=== PATIENT | female | born 1945 | race Caucasian/White ===

== ENCOUNTER 2021-01-22 15:18 | Emergency (ER) | payer MEDICARE, SELFPAY ==
[2021-01-22 16:05] VITALS: BP 141/89; PULSE 87; RESP 19; TEMP 36.8; O2SAT 98; BMI 28.8
--- NOTE | 2021-01-22 16:35 | HMH.EDUTC ---
[facility] [place]ression: Medication refill Otitis media Qualifiers: Otitis media type: unspecified Laterality: right Qualified Code(s): H66.91 - Otitis media, unspecified, right ear Disposition: Home, Self-Care Condition on Discharge: Good Instructions: Middle Ear Infection, Middle Ear Infections (Alternative Therapy), Amoxicillin Additional Instructions: Follow up with Family Doctor if no improvement or any worsening of symptoms Return if needed Straight to ER if any life threatening symptoms Take medication as prescribed Prescriptions: Amoxicillin [Amoxicillin 500mg Cap] 500 mg PO TID #30 cap Transmission Status: Pending to [facility] Rosuvastatin Calcium [Crestor 10mg Tablets] 10 mg PO DAILY 30 Days #30 tab Transmission Status: Pending to [facility] Levothyroxine Sodium [Euthyrox] 25 mcg PO DAILY 30 Days #30 tab Transmission Status: Pending to [facility] Referrals: Provider,Referral, MD [Primary Care Provider] - As needed Medical Decision Making - Christian Inquiry Pt receiving controlled substance: No Christian was queried for this patient: No Vital Signs: 01/22/21 16:05 Temperature 98.3 F Temperature Source Oral Pulse Rate [Right Brachial] 87 Respiratory Rate 19 Blood Pressure [Right Arm] 141/89 H Blood Pressure Mean [Right Arm] 106 Blood Pressure Source [Right Arm] Automatic Cuff Blood Pressure Position [Right Arm] Sitting 02 Sat by Pulse Oximetry 98 Oxygen Delivery Method Room Air [facility] [place] - General Stated complaint: needs refills Time Seen by Provider: 01/22/21 16:35 Mode of Arrival: Ambulatory Source of Information: Patient Limitations: No Limitations Description of Symptoms (Recalled from Triage Doc. by RN): PATIENT IS FROM [place] VISITING AND IS NEEDING HER THYROID AND CHOLESTEROL MEDICATIONS REFILLED HEENT Symptoms (Recalled from RN notes): No Resp Symptoms (Recalled from RN notes): No Skin Symptoms (Recalled from RN notes): No MS Symptoms (Recalled from RN notes): No Functional Status (Recalled from RN notes): WNL - History of Present Illness Provider Complaint: Patient states that she is in from [place] visiting States that she is out of a couple of her medications and wanted to get them refilled because she ran out while here visiting and not going back until after nicolás so she wanted to get her chloesterol (crestor 10mg daily) and thyroid medication( Euthrox 25mcg) refilled and she is also having pain in her right ear and thinks her ear infection is back - Related Data Home Medications Medication Instructions Recorded Confirmed Levothyroxine Sodium [Euthyrox] 25 mcg PO DAILY 01/22/21 01/22/21 Rosuvastatin Calcium [Crestor 10mg 10 mg PO DAILY 01/22/21 01/22/21 Tablets] Previous Rx's Medication Instructions Recorded Amoxicillin [Amoxicillin 500mg 500 mg PO TID #30 cap 01/22/21 Cap] Levothyroxine Sodium [Euthyrox] 25 mcg PO DAILY 30 Days #30 tab 01/22/21 Rosuvastatin Calcium [Crestor 10mg 10 mg PO DAILY 30 Days #30 tab 01/22/21 Tablets] Allergies Allergy/AdvReac Type Severity Reaction Status Date / Time Sulfa (Sulfonamide Allergy Verified 01/22/21 16:18 Antibiotics) - Worker's Comp Is this a Worker's Comp case?: No [facility] History - Hepatitis A Screen Drug use history?: No High risk sexual behaviors?: No History of sexually transmitted infection?: No Currently employed?: No Childcare worker?: No Do you have indoor plumbing?: Yes Do you have electricity?: Yes Attestation statement:: This patient has been screened for Hepatitis A risk factors. I have reviewed the patient's past medical history: Yes ROS Obtained: Yes All systems reviewed & no additional complaints, Yes Systems reviewed as appropriate & no additional complaints - Constitutional Constitutional: Reports system reviewed and no additional complaints, except as docu - ENT Ears, Nose, Mouth, and Throat: Reports s
[2021-01-22 16:46] VITALS: BP 141/89; PULSE 87; RESP 19; TEMP 36.8; O2SAT 98
== END 2021-01-22 16:50 | disposition home or self-care (01) ==
PROVIDERS: Emergency Provider Nurse Practitioner
DX: H66.91 Otitis media, unspecified, right ear (principal); Z76.0 Encounter for issue of repeat prescription
CPT/HCPCS: 99202; G0463

== ENCOUNTER 2021-07-18 18:01 | Emergency (ER) | payer MEDICARE, SELFPAY ==
[2021-07-18] VITALS (8 sets, daily range): BP systolic 133–216; BP diastolic 73–104; PULSE 85–110; RESP 16–20; TEMP 36.6–38.1; O2SAT 94–98; BMI 28.8
--- NOTE | 2021-07-18 18:26 | HMH.EDUTC ---
[facility] [place] Condition on Discharge: Undetermined Time of Disposition: 18:45 <Nora Valladares - Last Filed: 07/18/21 18:57> Condition on Discharge: Good <Francis Reich - Last Filed: 07/18/21 23:01> Clinical Impression: Hypertensive urgency, Pleurisy Headache Qualifiers: Headache type: unspecified Headache chronicity pattern: acute headache Intractability: not intractable Qualified Code(s): R51.9 - Headache, unspecified Disposition: Home, Self-Care Instructions: DI for Pleurisy Additional Instructions: Sent to ER for management of blood pressure and workup and monitor bp at home and see pcp Prescriptions: predniSONE [Prednisone 20mg Tab] 20 mg PO BID #10 tab Azithromycin [Zithromax 250mg tab] 250 mg PO DIRECTED #6 tab Referrals: Provider,Referral, [Primary Care Provider] - Medical Decision Making - Christian Inquiry Pt receiving controlled substance: No - Lab Data Lab results reviewed: Yes: I reviewed the patient's lab results. <Nora Valladares - Last Filed: 07/18/21 18:57> - Lab Data Result diagrams: 07/18/21 18:45 07/18/21 18:45 - Radiology Data #1 Image(s): Chest Image Reviewed: Yes I have reviewed radiologist's interpretation Preliminary Findings: Normal/NAD - CT Data CT Scan: Chest Time Received: 22:[address] Reviewed: Yes: I have viewed the radiologist's interpretation Preliminary Findings: Normal/NAD - ECG Data Tracing #1 Normal Sinus Rhythm: Yes Ischemic changes: non-specific ST-T wave changes <Francis Reich - Last Filed: 07/18/21 23:01> Vital Signs: 07/18/21 18:23 07/18/21 18:47 07/18/21 20:00 Temperature 100.5 F H 100.5 F H Temperature Source Oral Oral Pulse Rate 91 H Pulse Rate [Right Radial] 110 H 105 H Respiratory Rate 20 16 Blood Pressure 167/89 H Blood Pressure [Right Arm] 216/104 H 169/78 H Blood Pressure Mean 122 Blood Pressure Mean [Right Arm] 141 108 Blood Pressure Source [Right Arm] Automatic Cuff Blood Pressure Position [Right Arm] Sitting 02 Sat by Pulse Oximetry 96 97 97 Oxygen Delivery Method Room Air 07/18/21 20:31 07/18/21 21:01 07/18/21 22:01 Temperature Temperature Source Pulse Rate 86 90 85 Pulse Rate [Right Radial] Respiratory Rate Blood Pressure 167/95 H 156/85 H 149/73 H Blood Pressure [Right Arm] Blood Pressure Mean 119 108 101 Blood Pressure Mean [Right Arm] Blood Pressure Source [Right Arm] Blood Pressure Position [Right Arm] 02 Sat by Pulse Oximetry 95 95 94 L Oxygen Delivery Method 07/18/21 22:31 Temperature Temperature Source Pulse Rate 85 Pulse Rate [Right Radial] Respiratory Rate Blood Pressure 133/77 Blood Pressure [Right Arm] Blood Pressure Mean 94 Blood Pressure Mean [Right Arm] Blood Pressure Source [Right Arm] Blood Pressure Position [Right Arm] 02 Sat by Pulse Oximetry 94 L Oxygen Delivery Method - Lab Data Lab Results 07/18/21 18:31: Urine Color Yellow, Urine Appearance Clear, Urine pH 6.5, Ur Specific [place] 1.020, Urine Protein Negative, Urine Glucose (UA) Negative, Urine Ketones Negative, Urine Blood Negative, Urine Nitrate Negative, Urine Bilirubin Negative, Urine Urobilinogen 0.2, Ur Leukocyte Esterase Negative 07/18/21 18:45: WBC 7.7, RBC 4.94, Hgb 14.2, Hct 42.0, MCV 85.1, MCH 28.7, MCHC 33.7, RDW 13.7, Plt Count 231, MPV 8.7, Neut % (Auto) 79.0, Lymph % (Auto) 7.8 L, [place] % (Auto) 7.0, Eos % (Auto) 3.4, Baso % (Auto) 2.7 H, Neut # (Auto) 6.1, Lymph # (Auto) 0.6 L, [place] # (Auto) 0.5, Eos # (Auto) 0.3, Baso # (Auto) 0.2, ESR 27 07/18/21 18:45: Sodium 136, Potassium 3.8, Chloride 100, Carbon Dioxide 28, Anion Gap 11.8, BUN 14, Creatinine 0.70, Estimated Creat Clear 65, Estimated GFR 81, Est GFR ( Amer) 98, Glucose 131 H, Calcium 9.3, Total Bilirubin 0.4, AST 33, ALT 24, Alkaline Phosphatase 93, Troponin I < 0.01, C-Reactive Protein 3.3, Total Protein 8.1, Albumin 4.8, Globulin 3.3 H, Albumin/Globulin Ratio
[2021-07-18 18:33] LABS: Apearance,Urine Clear (Clear); Color,Urine Yellow (Yellow); PH,Urine 6.5 (5.0-8.5)
[2021-07-18 18:34] LABS: Bilirubin,Urine Negative (Negative); Blood, Urine Negative (Negative); Glucose,Urine (UA) Negative (Negative); Ketones,Urine Negative (Negative); Protein,Urine Negative (Negative)
[2021-07-18 18:35] LABS: UTC Leukocyte Esterase,Urine Negative (Negative); UTC Nitrate,Urine Negative (Negative); Urobilinogen,Urine 0.2 EU/dl (0.2)
--- NOTE | 2021-07-18 18:36 | PC.NURSE ---
Being sent to ED for further eval r/t elevated BP, c/o headache, low grade temp, SOA
--- NOTE | 2021-07-18 18:50 | XR_ITS ---
PROCEDURE INFORMATION: Exam: XR Chest Exam date and time: 07/18/2021 6:49 PM Age: 75 years old Clinical indication: Pain; Intercostal; Additional info: Weakness, copd TECHNIQUE: Imaging protocol: XR of the chest. Views: 2 views. COMPARISON: No relevant prior studies available. FINDINGS: Lungs: No acute airspace consolidation. Minor linear atelectasis or scarring at the left lung base. Bilateral calcified granulomata. Pleural spaces: Unremarkable. No pleural effusion. No pneumothorax. Heart/Mediastinum: Unremarkable. No cardiomegaly. Vasculature: Tortuosity of the thoracic aorta. Bones/joints: Unremarkable. IMPRESSION: No acute findings.
--- NOTE | 2021-07-18 18:50 | ECG_ITS ---
APPROVED REPORT Exam: Resting ECG HR:101 bpm ECG Measurements Heart Rate 101 AXES [place] 184 P 71 QRSd 85 QRS 44 QT 361 T 53 QTc 419 Conclusion SINUS TACHYCARDIA MINIMAL ST DEPRESSION [0.025+ mV ST DEPRESSION] ABNORMAL RHYTHM ECG UNCONFIRMED REPORT Electronically signed by : Kaleb Hodge MD 07/20/2021 09:40:47
[2021-07-18 18:57] LABS: Basophils # 0.2 K/mm3 (0-0.2); Basophils % 2.7 % (0.1-2.0); Eosinophils # 0.3 K/mm3 (0.0-0.4); Eosinophils % 3.4 % (0.1-12.0); Hemoglobin 14.2 g/dL (12.2-16.2); Lymphocytes # 0.6 K/mm3 (0.7-4.5); Lymphocytes % 7.8 % (10-50); Mean Corpuscular HGB Conc 33.7 g/dL (31.8-35.4); Mean Corpuscular Hemoglobin 28.7 pg (27.0-31.2); Mean Corpuscular Volume 85.1 fl (81-99); Mean Platelet Volume 8.7 fl (7.4-10.4); Monocytes # 0.5 K/mm3 (0.1-1.0); Neutrophils # 6.1 K/mm3 (1.8-7.8); Platelet Count 231 K/mm3 (142-424); Red Blood Count 4.94 M/mm3 (4.20-5.40); Red Cell Distribution Width 13.7 % (11.5-17.5); White Blood Count 7.7 K/mm3 (4.8-10.8)
[2021-07-18 19:04] LABS: Chloride 100 mmol/L (98-107); Potassium 3.8 mmoL/L (3.5-5.1); Sodium 136 mmol/L (136-145)
[2021-07-18 19:07] LABS: Alanine Aminotransferase 24 U/L (12-78); Albumin Level 4.8 g/dl (3.5-5.0); Albumin/Globulin Ratio 1.5 (1.1-1.8); Alkaline Phosphatase 93 U/L (38-126); Anion Gap 11.8 mEq/L (5-15); Aspartate Amino Transferase 33 U/L (14-36); Bilirubin,Total 0.4 mg/dl (0.2-1.3); Blood Urea Nitrogen 14 mg/dl (7-17); Calcium 9.3 mg/dl (8.4-10.2); Carbon Dioxide 28 mmol/L (22.0-30.0); Creatinine Clearance Estimated 65 mL/min (50-200); Estimated Glomerular Filt Rate 81 ml/min (>60); GFR (African American) 98 ML/MIN (>60); Globulin 3.3 g/dL (1.3-3.2); Glucose 131 mg/dl (74-100); Total Protein,Serum 8.1 g/dl (6.3-8.2)
[2021-07-18 19:13] LABS: C-Reactive Protein 3.3 mg/L (0-4)
[2021-07-18 19:24] LABS: Troponin I < 0.01 ng/ml (0.00-0.034)
[2021-07-18 19:38] LABS: Erythrocyte Sedimentation Rate 27 mm/hr (0-30)
[2021-07-18 19:39] LABS: Procalcitonin 0.049 ng/mL (0.0-2.0)
--- NOTE | 2021-07-18 21:06 | CT_ITS ---
PROCEDURE INFORMATION: Exam: CTA Chest With Contrast Exam date and time: 07/18/2021 9:42 PM Age: 75 years old Clinical indication: Pain; Shortness of breath; Left-sided; Additional info: SOA left chest pain TECHNIQUE: Imaging protocol: Computed tomographic angiography of the chest with contrast. 3D rendering (Not supervised by radiologist): MIP and/or 3D reconstructed images were created by the technologist. Radiation optimization: All CT scans at this facility use at least one of these dose optimization techniques: automated exposure control; mA and/or kV adjustment per patient size (includes targeted exams where dose is matched to clinical indication); or iterative reconstruction. Contrast material: ISOVUE 370; Contrast volume: 70 ml; Contrast route: INTRAVENOUS (IV); COMPARISON: CR XR CHEST 2V 07/18/2021 6:49 PM FINDINGS: Pulmonary arteries: Normal. No pulmonary emboli. Aorta: Mild atherosclerotic changes are seen within the thoracic aorta without evidence of aneurysm. Lungs: 8 mm calcified granuloma at the left lung base. No acute airspace disease. Pleural spaces: Unremarkable. No pneumothorax. No pleural effusion. Heart: Moderate coronary artery calcification. Lymph nodes: Calcified mediastinal and hilar region lymph nodes. Bones/joints: Unremarkable. No acute fracture. Soft tissues: Unremarkable. IMPRESSION: No acute findings.
[2021-07-18 21:08] LABS: Coronavirus 19, PCR Not Detected (NotDetected); Influenza A, PCR Not Detected (NotDetected); Influenza B, PCR Not Detected (NotDetected)
[2021-07-18 22:56] LABS: Troponin I < 0.01 ng/ml (0.00-0.034)
== END 2021-07-18 23:15 | disposition home or self-care (01) ==
LOC: UTC 18:15 → ER 18:36
PROVIDERS: Emergency Medicine; Physician Assistant; Emergency Provider Emergency Medicine
DX: I16.0 Hypertensive urgency (principal); J90 Pleural effusion, not elsewhere classified; R07.9 Chest pain, unspecified
CPT/HCPCS: 36415; 71046; 71275; 80053; 81003; 84145; 84484; 85025; 85651; 86140; 93005; 96374; 96375; 99284; C9803; Q9967; U0003; U0005

== ENCOUNTER 2021-07-24 18:59 | Emergency (ER) | payer MEDICARE, SELFPAY ==
[2021-07-24 19:01] VITALS: BP 168/91; PULSE 78; RESP 20; TEMP 36.7; O2SAT 97; BMI 28.8
--- NOTE | 2021-07-24 20:01 | ECG_ITS ---
APPROVED REPORT Exam: Resting ECG HR:78 bpm ECG Measurements Heart Rate 78 AXES [place] 173 P 77 QRSd 93 QRS 57 QT 382 T 59 QTc 416 Conclusion SINUS RHYTHM NORMAL ECG UNCONFIRMED REPORT Electronically signed by : Kaleb Hodge MD 07/25/2021 17:23:11
[2021-07-24 20:09] LABS: Coronavirus 19, PCR Not Detected (NotDetected); Influenza B, PCR Not Detected (NotDetected)
--- NOTE | 2021-07-24 20:16 | XR_ITS ---
PROCEDURE INFORMATION: Exam: XR Chest Exam date and time: 07/24/2021 8:25 PM Age: 75 years old Clinical indication: Cough and shortness of breath; Additional info: SOA, cough TECHNIQUE: Imaging protocol: XR of the chest. Views: 2 views. COMPARISON: CR XR CHEST 2V 07/18/2021 6:49 PM FINDINGS: Airway: Patent Lungs: COPD/emphysema is appreciated. Mild chronic interstitial prominence. Calcified granuloma in the left lower lobe is of no clinical concern. No acute interstitial or airspace disease. Pleural spaces: Unremarkable. No pleural effusion. No pneumothorax. Heart/Mediastinum: Unremarkable. No cardiomegaly. Bones/joints: No acute skeletal abnormality or aggressive osseous lesion. IMPRESSION: No acute thoracic pathology.
[2021-07-24 20:20] VITALS: PULSE 80; PULSE 82
[2021-07-24 20:27] LABS: Basophils # 0.1 K/mm3 (0-0.2); Eosinophils % 0.2 % (0.1-12.0); Hematocrit 41.2 % (37.0-47.0); Hemoglobin 13.8 g/dL (12.2-16.2); Lymphocytes # 1.6 K/mm3 (0.7-4.5); Lymphocytes % 16.6 % (10-50); Mean Corpuscular HGB Conc 33.5 g/dL (31.8-35.4); Mean Corpuscular Hemoglobin 28.5 pg (27.0-31.2); Mean Corpuscular Volume 85.3 fl (81-99); Monocytes # 0.6 K/mm3 (0.1-1.0); Monocytes % 6.5 % (1.7-9.3); Neutrophils # 7.2 K/mm3 (1.8-7.8); Neutrophils % 75.6 % (37.0-80.0); Platelet Count 242 K/mm3 (142-424); Red Blood Count 4.83 M/mm3 (4.20-5.40); Red Cell Distribution Width 13.6 % (11.5-17.5); White Blood Count 9.5 K/mm3 (4.8-10.8)
--- NOTE | 2021-07-24 20:29 | HMH.EDSOB ---
ED Disposition Clinical Impression: Flu syndrome Disposition: Home, Self-Care Condition on Discharge: Good Instructions: DI for H1N1 Influenza -- Adult Additional Instructions: fluids and see pcp for follow up Prescriptions: Oseltamivir Phosphate [Tamiflu 75mg Capsule] 75 mg PO BID #10 cap Transmission Status: Pending to [facility] Referrals: Provider,Referral, [Primary Care Provider] - - Critical Care Critical Care Time: No Attestation: On 07/24/21, the high probability of a clinically significant, sudden or life threatening deterioration of the following system(s) required my full and direct attention, intervention and personal management. The time I documented below is in addition to time spent performing reported procedures but includes the following listed in this critical care notation. Medical Decision Making - Medical Records Medical records reviewed: Yes: I reviewed the patient's medical records. - Christian Inquiry Pt receiving controlled substance: No Vital Signs: 07/24/21 19:01 07/24/21 20:20 Temperature 98.1 F Temperature Source Oral Pulse Rate 82 Pulse Rate [Right] 78 Respiratory Rate 20 Blood Pressure [Right Arm] 168/91 H Blood Pressure Mean [Right Arm] 116 Blood Pressure Source [Right Arm] Automatic Cuff 02 Sat by Pulse Oximetry 97 Oxygen Delivery Method Room Air - Lab Data Lab results reviewed: Yes: I reviewed the patient's lab results. Lab Results 07/24/21 20:00: SARS-CoV-2 (PCR) Not detected, Influenza A Untype (PCR) Detected A, Influenza Type B (PCR) Not detected 07/24/21 20:00: ESR 18 07/24/21 20:00: Troponin I < 0.01, C-Reactive Protein 0.4, Procalcitonin 0.031 07/24/21 20:00: WBC 9.5, RBC 4.83, Hgb 13.8, Hct 41.2, MCV 85.3, MCH 28.5, MCHC 33.5, RDW 13.6, Plt Count 242, MPV 9.0, Neut % (Auto) 75.6, Lymph % (Auto) 16.6, [place] % (Auto) 6.5, Eos % (Auto) 0.2, Baso % (Auto) 1.0, Neut # (Auto) 7.2, Lymph # (Auto) 1.6, [place] # (Auto) 0.6, Eos # (Auto) 0.0, Baso # (Auto) 0.1 07/24/21 20:00: Sodium 137, Potassium 3.9, Chloride 97 L, Carbon Dioxide 29, Anion Gap 14.9, BUN 19 H, Creatinine 0.70, Estimated Creat Clear 65, Estimated GFR 81, Est GFR ( Amer) 98, Glucose 158 H, Calcium 9.1, Magnesium 2.0, Total Bilirubin 0.1 L, AST 39 H, ALT 38, Alkaline Phosphatase 85, NT-Pro-B Natriuret Pep 246, Total Protein 7.4, Albumin 4.5, Globulin 2.9, Albumin/Globulin Ratio 1.6 07/24/21 20:09: Monoscreen Negative Result diagrams: 07/24/21 20:00 07/24/21 20:00 Orders (Tests/Meds): ED MEDICATIONS Generic Name Dose Route Start Last Admin Trade Name Freq PRN Reason Stop Dose Admin Sodium Chloride 1,000 mls @ 999 mls/hr 07/24/21 20:30 07/24/21 21:03 Sod Chlor 0.9% 1000ml Bag IV 07/24/21 21:30 999 mls/hr .Q1H1M TIM Administration Sodium Chloride 3 ml 07/24/21 20:16 Sodium Chloride 3% 15ml Neb 08/23/21 20:15 ONCE PRN INDUCE SPUTUM COLLECTION Discontinued Medications Generic Name Dose Route Start Last Admin Trade Name Freq PRN Reason Stop Dose Admin Albuterol/Ipratropium 3 ml 07/24/21 20:16 07/24/21 20:20 Ipratropium/Albuterol 3 Ml Neb 07/24/21 20:17 3 ml ONCE ONE Administration Methylprednisolone Sodium Succinate 125 mg 07/24/21 20:16 07/24/21 21:03 Methylprednisolone Sod Succ 125mg Vial IV 07/24/21 20:17 125 mg ONCE ONE Administration ORDERS Category Date Time Status T4 (Thyroxine) Stat Lab 07/24/21 20:09 Received Thyroid Stimulating Hormone Stat Lab 07/24/21 20:09 Received Troponin I Q3H Lab 07/24/21 23:30 Ordered Troponin I Q3H Lab 07/25/21 02:30 Ordered Sputum Culture & Gram Stain Routine Micro 07/24/21 20:15 Ordered - Radiology Data #1 Image(s): Chest Image Reviewed: Yes I have reviewed radiologist's interpretation Preliminary Findings: Normal/NAD - ECG Data Tracing #1 Normal Sinus Rhythm: Yes Ischemic changes: non-specific ST-T wave changes - JESUS Score for
[2021-07-24 20:33] LABS: Alanine Aminotransferase 38 U/L (12-78); Albumin Level 4.5 g/dl (3.5-5.0); Albumin/Globulin Ratio 1.6 (1.1-1.8); Alkaline Phosphatase 85 U/L (38-126); Anion Gap 14.9 mEq/L (5-15); Aspartate Amino Transferase 39 U/L (14-36); Blood Urea Nitrogen 19 mg/dl (7-17); Calcium 9.1 mg/dl (8.4-10.2); Carbon Dioxide 29 mmol/L (22.0-30.0); Chloride 97 mmol/L (98-107); Creatinine Clearance Estimated 65 mL/min (50-200); Estimated Glomerular Filt Rate 81 ml/min (>60); GFR (African American) 98 ML/MIN (>60); Globulin 2.9 g/dL (1.3-3.2); Glucose 158 mg/dl (74-100); Potassium 3.9 mmoL/L (3.5-5.1); Sodium 137 mmol/L (136-145); Total Protein,Serum 7.4 g/dl (6.3-8.2)
[2021-07-24 20:36] LABS: C-Reactive Protein 0.4 mg/L (0-4)
[2021-07-24 20:37] LABS: Bilirubin,Total 0.1 mg/dl (0.2-1.3)
[2021-07-24 20:39] LABS: Monoscreen (Rapid) Negative (Negative)
[2021-07-24 20:42] LABS: NT Pro Brain Natriuretic Pep. 246 pg/mL (0-450)
[2021-07-24 20:51] LABS: Procalcitonin 0.031 ng/mL (0.0-2.0)
[2021-07-24 20:56] LABS: Erythrocyte Sedimentation Rate 18 mm/hr (0-30)
[2021-07-24 21:04] LABS: Troponin I < 0.01 ng/ml (0.00-0.034)
[2021-07-24 21:09] LABS: Influenza A, PCR Detected (NotDetected)
[2021-07-24 21:20] VITALS: BP 164/78; PULSE 71; RESP 20; TEMP 36.7; O2SAT 97
[2021-07-24 22:03] LABS: T4 (Thyroxine) 8.7 ug/dl (5.53-11.0)
[2021-07-24 22:16] LABS: Thyroid Stimulating Hormone 1.03 uIU/mL (0.465-4.68)
== END 2021-07-24 21:35 | disposition home or self-care (01) ==
PROVIDERS: Emergency Provider Emergency Medicine
DX: J10.1 Influenza due to other identified influenza virus with other respiratory manifestations (principal); Z79.899 Other long term (current) drug therapy; Z88.2 Allergy status to sulfonamides
CPT/HCPCS: 71046; 80053; 83735; 83880; 84145; 84436; 84443; 84484; 85025; 85651; 86140; 86318; 93005; 94640; 96365; 96375; 99284; C9803; U0003; U0005

== ENCOUNTER 2021-08-30 21:01 | Emergency (ER) | payer MEDICARE, SELFPAY ==
[2021-08-30 21:13] VITALS: BP 132/66; PULSE 82; RESP 18; TEMP 36.9; O2SAT 98; BMI 28.8
--- NOTE | 2021-08-30 21:17 | XR_ITS ---
PROCEDURE INFORMATION: Exam: XR Right Knee Exam date and time: 08/30/2021 9:52 PM Age: 75 years old Clinical indication: Injury or trauma; Fall; Blunt trauma and laceration; Right; Patella or knee; Foreign body involvement not specified TECHNIQUE: Imaging protocol: Radiologic exam of the Right knee. Views: 3 views. COMPARISON: No relevant prior studies available. FINDINGS: Bones/joints: Normal. Soft tissues: Normal. IMPRESSION: No acute findings.
--- NOTE | 2021-08-30 21:55 | HMH.EDFALL ---
ED Disposition Clinical Impression: Abrasions of multiple sites Contusion of knee, right Qualifiers: Encounter type: initial encounter Qualified Code(s): S80.01XA - Contusion of right knee, initial encounter Laceration of knee Qualifiers: Encounter type: initial encounter Laterality: right Qualified Code(s): S81.011A - Laceration without foreign body, right knee, initial encounter Disposition: Home, Self-Care Condition on Discharge: Good Instructions: DI for Laceration Repair -- Simple Additional Instructions: use meds and sutures out 12 days Prescriptions: cephALEXin [cephALEXin 500mg capsule*] 500 mg PO TID #30 cap Transmission Status: Pending to [facility] Referrals: Provider,Referral, [Primary Care Provider] - - Critical Care Critical Care Time: No Attestation: On 08/30/21, the high probability of a clinically significant, sudden or life threatening deterioration of the following system(s) required my full and direct attention, intervention and personal management. The time I documented below is in addition to time spent performing reported procedures but includes the following listed in this critical care notation. Medical Decision Making - Medical Records Medical records reviewed: Yes: I reviewed the patient's medical records. - Christian Inquiry Pt receiving controlled substance: No Vital Signs: 08/30/21 21:13 Temperature 98.4 F Temperature Source Oral Pulse Rate [Apical] 82 Respiratory Rate 18 Blood Pressure [Right Arm] 132/66 Blood Pressure Mean [Right Arm] 88 Blood Pressure Source [Right Arm] Automatic Cuff Blood Pressure Position [Right Arm] Sitting 02 Sat by Pulse Oximetry 98 Oxygen Delivery Method Room Air - Lab Data Lab results reviewed: Yes: I reviewed the patient's lab results. Orders (Tests/Meds): ED MEDICATIONS Discontinued Medications Generic Name Dose Route Start Last Admin Trade Name Freq PRN Reason Stop Dose Admin Tetanus/Reduced Diphtheria/Acell Pertussis 0.5 ml 08/30/21 21:17 08/30/21 22:27 Tet/Diphth/Pert-Adult 0.5ml Syringe IM 08/30/21 21:18 0.5 ml .ONCE ONE Administration ORDERS Category Date Time Status XR knee RT 3V Stat Exams 08/30/21 21:17 Taken - Radiology Data #1 Image(s): Knee Image Reviewed: Yes I reviewed the patient's radiology image Preliminary Findings: No Fracture Seen Medical Decision Narrative: has lac rt knee and several abrasions but no fx Fall HPI - General Chief Complaint: Fall Stated Complaint: 08/30@2044 right knee lac Time Seen by Provider: 08/30/21 21:55 Mode of Arrival: Ambulatory Source of Information: Patient, Relative, Medical Record Limitations: No Limitations Description of Symptoms (Recalled from ER Triage Doc. by RN): Pt states that she tripped over a curb and landed on her hands and knees resulting in an abrasion to her left palm and left knee and a laceration to her right knee. States that she doesnt have any pain other than the laceration. Denies hip or back pain. - History of Present Illness HPI Narrative: trip injury and hit rt knee with laceration and several abrasions MD complaint: fall Onset (ago): hour(s) Fall from: standing Fall witnessed: yes, by family Place fall occurred: home Loss of consciousness: none Prolonged down time: no Context: tripped/slipped Location of injury - extremities: Right: knee Severity: moderate Associated symptoms (after fall): denies - Related Data Home Medications Medication Instructions Recorded Confirmed Rosuvastatin Calcium [Crestor 10mg 10 mg PO DAILY 01/22/21 07/24/21 Tablets] Albuterol Sulfate [Proair Hfa] 2 puff IH Q6HP PRN 07/24/21 07/24/21 Azithromycin [Zithromax 250mg 250 mg PO DIRECTED 07/24/21 07/24/21 tab] Budesonide/Formoterol Fumarate 2 puff IH DAILY 07/24/21 07/24/21 [Symbicort 160-4.5 Mcg Inhaler] Gabapentin [Neurontin 300mg 300 mg PO BID 07/24/21 07/24/21 capsule] Levot
[2021-08-30 23:51] VITALS: BP 121/78; PULSE 80; RESP 18; TEMP 36.9; O2SAT 98
== END 2021-08-30 23:52 | disposition home or self-care (01) ==
PROVIDERS: Emergency Provider Emergency Medicine
DX: S80.01XA Contusion of right knee, initial encounter (principal); S81.011A Laceration without foreign body, right knee, initial encounter; S60.512A Abrasion of left hand, initial encounter; W10.1XXA Fall (on)(from) sidewalk curb, initial encounter; Z23 Encounter for immunization; Z79.899 Other long term (current) drug therapy; Z88.2 Allergy status to sulfonamides
CPT/HCPCS: 12032; 73562; 90471; 90715; 99283

== ENCOUNTER 2021-09-11 19:27 | Emergency (ER) | payer MEDICARE, SELFPAY ==
[2021-09-11 19:29] VITALS: BP 131/86; PULSE 76; RESP 19; TEMP 36.6; O2SAT 98; BMI 29.7
[2021-09-11 19:41] VITALS: BP 131/86; PULSE 76; RESP 19; TEMP 36.6; O2SAT 98
== END 2021-09-11 19:43 | disposition home or self-care (01) ==
LOC: UTC 19:34
PROVIDERS: Emergency Provider Nurse Practitioner; PCP Emergency Medicine
DX: Z48.02 Encounter for removal of sutures (principal); Z79.51 Long term (current) use of inhaled steroids; Z79.52 Long term (current) use of systemic steroids; Z82.2 Family history of deafness and hearing loss

== ENCOUNTER 2023-07-28 10:28 | Emergency (ER) | payer MEDICARE, SELFPAY ==
--- OUTSIDE RECORDS SUMMARY | 2023-07-28 10:33 | XMS_ITS | Continuity of Care Document ---
Author Name [facility] Address [address] [place] [address] Organization [facility] Address [address] [place] [address] Care Team Providers Care Statistical Programmer Name Role Phone Heather Mena Emergency Provider Lavon Willis Primary Care Provider Allergies, Adverse Reactions, Alerts Allergen Type Severity Reaction Last Updated Verified Status Sulfa (Sulfonamide Antibiotics) Adverse Reaction Unknown Unknown March 20, 2023 Y Active Medications Active Medications Medication Dose Units Route Sig Qty Days Start Date St atus Cyclobenzaprine 10 MG Oral ONCE WERNER Y AT BEDTIME April 02, 2022 Active Paroxetine Hcl 10 MG Oral DAILY F ebruary 2022 Active Meloxicam 15 MG Oral DAILY ry 2022 Active Gabapentin 300 MG Oral THREE TIMES A DAY April 02, 2022 Active Omeprazole 20 MG Oral EVERY MORNING April 02, 2022 Active Lisinopril 5 MG Oral DAILY samreen2022 Active Metoprolol Succinate 25 MG Oral DAILY April 02, 2022 Active Aripiprazole 5 MG Oral DAILY b ruary 2022 Active Rosuvastatin 10 MG Oral DAILY Mar ruary 2022 Active Levothyroxine 25 MCG Oral EVERY MORNING April 03, 2022 Active Paroxetine Hcl 50 MG Oral DAILY 0 F ebruary 2022 Active Discontinued Medications Medication Dose Units Route Sig Qty Days Start Date Di scontinued Date Status Lovastatin 40 MG Oral DAILY Septe mber 2017April 02, 2022 Discontinued Paroxetine Hcl 50 MG Oral DAILY S eptember 2017April 09, 2022 Discontinued Aripiprazole 5 MG Oral ONCE Sep tember 2017April 02, 2022 Discontinued Prednisone 40 MG Oral DAILY 8 4 Augus t 2021October 09, 2021 Discontinued Benzonatate 100 MG Oral THREE TIMES A DAY October 05, 2021 April 02, 2022 Discontinued Cyclobenzaprine 10 MG Oral ONCE DAILY AT BEDTIME April 02, 2022 April 02, 2022 Discontinued Doxycycline Hyclate 100 MG Oral TWICE A DAY 14 7 April 09, 2022 April 16, 2022 Discontinued Doxycycline Hyclate 100 MG Oral EVERY 12 HOURS 28 September 25, 2022 October 09, 2022 Discontinued Problem List Active Problems Medical Problem Onset Date Status Bradycardia Active Severe sepsis Active Sepsis Active Leg wound, right Active Colon polyps Active Inactive/Resolved Problems Medical Problem Onset Date Status Chest wall pain Inactive RSV (respiratory syncytial virus infection) Inactive Pacemaker Inactive Chest pain Inactive Chest pain Inactive Hypertension Inactive Fall Inactive Laceration of knee Inactive Procedures Procedure Date Status XR chest 1V portable March 20, 2023 completed EKG ED Electrocardiogram March 20, 2023 comple abhijit Relevant Diagnostic Tests and/or Laboratory Data Laboratory Results Test Date/Time Result Interp. Ref. Range Result Co mment White Blood Count March 20, 2023 7:50pm 9.57 K/uL 4.30-10.00 Red Blood Count March 20, 2023 7:50pm 4.34 M/uL 3.80-5.00 Hemoglobin March 20, 2023 7:50pm 12.2 gm/dL 12.0-15.0 Hematocrit March 20, 2023 7:50pm 36.5 % 35.0-45.0 Mean Corpuscular Volume March 20, 2023 7:50pm 84.1 fL Low 85.0-100.0 Mean Corpuscular Hemoglobin March 20, 2023 7:50pm 28.1 pg 27.0-33.0 Mean Corpuscular Hemoglobin Concent March 20, 2023 7:50pm 33.4 gm/dL 32.0-36.0 Red Cell Distribution Width March 20, 2023 7:50pm 13.1 % 11.5-14.5 Platelet Count March 20, 2023 7:50pm 255 K/uL 150-400 Absolute Neutrophil March 20, 2023 7:50pm 5.4 K/uL 2.0-7.0 Immature Granulocyte % (Auto) March 20, 2023 7:50pm 0.3 % 0-1 Neutrophils (%) (Auto) March 20, 2023 7:50pm 56.1 % 45.0-75.0 Lymphocytes (%) (Auto) March 20, 2023 7:50pm 29.2 % 20.0-40.0 Monocytes (%) (Auto) March 20, 2023 7:50pm 10.2 % 1.0-13.1 Eosinophils (%) (Auto) March 20, 2023 7:50pm 3.7 % 0-5 Basophils (%) (Auto) March 20, 2023 7:50pm 0.5 % 0.0-1.0 Nucleated Red Blood Cells March 20, 2023 7:50pm 0.0 /100 WBC 0.0-1.0 Prothrombin Time March 20, 2023 7:50pm 10.3 seconds 9.3-12.1 Prothromb Time International Ratio March 20, 2023 7:50pm 1.0 0.9-1.2 Reference Interv al is for non-anticoagulated patients. Suggested INR Therapeutic Range for Vitamin K antogonist therapy: LEVELS OF THERAPY INDICATIONS TARGET INR RANGE Standard Dose Venous Thrombosis, 2.0 - 3.0 Atrial Fibrillation, Pulmonary Embolism. High Dose Valvular Heart Disease, 2.5 - 3.5 Mechanical Heart, Intracardiac Thrombosis. Activated Partial Thromboplast Time March 20, 2023 7:50pm 26.5 seconds 23.9-32.8 Sodium Level March 20, 2023 7:50pm 138 mEq/l 132-146 Potassium Level March 20, 2023 7:50pm 4.3 mEq/L 3.4-5.2 Chloride Level March 20, 2023 7:50pm 104 mEq/L 93-109 Carbon Dioxide Level March 20, 2023 7:50pm 26.0 mEq/L 20.0-32.0 Anion Gap March 20, 2023 7:50pm 8 5-20 Blood Urea Nitrogen March 20, 2023 7:50pm 15 mg/dL 6-22 Creatinine March 20, 2023 7:50pm 0.80 mg/dL 0.50-1.70 Estimated Creatinine Clearance March 20, 2023 7:50pm 64 mL/min This value is calculated by Cockcroft Gault Equation using ideal body weight. This result is dependent on an accurate patient height and weight which is obtained from patients medical record." CockIris julio. and M.HIsaías Mtz. Prediction of creatinine clearance from serum creatinine. Nephron. 1976. 16(1):31-41. Estimat Glomerular Filtration Rate March 20, 2023 7:50pm 75 Low >90 Reported eGFR is based on the CKD-EPI 2020 equation that does not use a race coefficient. Additional information can be found at: [email or web address] ([email or web address].[email or web address]) BUN/Creatinine Ratio March 20, 2023 7:50pm 19 Ratio 6-20 Glucose Level March 20, 2023 7:50pm 142 mg/dL High 68-100 Calculated Osmolality March 20, 2023 7:50pm 279 mOsm/kg 270-290 Calcium Level March 20, 2023 7:50pm 8.8 mg/dL 8.0-10.4 Magnesium Level March 20, 2023 7:50pm 2.1 mg/dL 1.6-2.3 Total Bilirubin March 20, 2023 7:50pm 0.5 mg/dL 0.1-1.2 Aspartate Amino Transf (AST/SGOT) March 20, 2023 7:50pm 24 IU/L 4-44 Alanine Aminotransferase (ALT/SGPT) March 20, 2023 7:50pm 21 IU/L 5-40 Troponin I High Sensitivity March 20, 2023 7:50pm 5 ng/L 0-12 Effective Jul 17 2019 - New Range: Testing is reported out in ng/L to compare to other results in ng/dL divide by 1000. Values <20 ng/L will be considered normal - Male Values <12 ng/L will be considered normal - Female Values >/=500 ng/L will be considered abnormal, and indicative of myocardial necrosis. Values between 20 and 499 (Male) and values between 12 and 499 (Female), generally are to be considered suspicious of, but not diagnostic for myocardial necrosis and require close clinical correlation, using best medical judgement. In addition, a delta of 20% (rise) between any 2 troponin values will be considered suspicious of, but not diagnostic for myocardial necrosis and require close clinical correlation, using best medical judgement. Clinicians must consider a patient's signs, symptoms, history and results with other diagnostic tests when interpreting high sensitivity Troponin assays because the performance for this assay has not been fully characterized by [employer]. Total Protein March 20, 2023 7:50pm 7.1 g/dL 5.6-8.0 Albumin March 20, 2023 7:50pm 4.2 g/dL 3.2-5.2 Globulin March 20, 2023 7:50pm 2.9 g/dL 2.0-3.9 Albumin/Globulin Ratio March 20, 2023 7:50pm 1.4 0.9-1.8 Alkaline Phosphatase March 20, 2023 7:50pm 66 U/L 34-128 Advance Directives Advance Directive Response Recorded Date/ Time Advance Directives No March 20 024 7:09pm Health Care Proxy No March 20 7:09pm Chief Complaint and Reason for Visit Encounter Admit Date Chief Complaint Reason for V isit Departed Emergency March 20, 2023 6:38pm pacemaker s [facility] Discharge Instructions No known hospital discharge instructions. Hospital Discharge Medications Medication Dose Units Route Sig Qty Days Order Date Status Ins tructions Lovastatin 40 MG Oral DAILY mber 2017 Discontinued Paroxetine Hcl 50 MG Oral DAILY S epteer 2017 Discontinued Aripiprazole 5 MG Oral ONCE Sep 2017 Discontinued Prednisone 40 MG Oral DAILY 8 4 t 2021 Discontinued Benzonatate 100 MG Oral THREE TIMES A DAY October 05, 2021 Discontinued Cyclobenzaprine 10 MG Oral ONCE DAILY AT BEDTIME April 02, 2022 Discontinued Cyclobenzaprine 10 MG Oral ONCE DAILY AT BEDTIME April 02, 2022 Active Paroxetine Hcl 10 MG Oral DAILY F ebary 2022 Active Meloxicam 15 MG Oral DAILY ua ry 2022 Active Gabapentin 300 MG Oral THREE TIMES A DAY April 02, 2022 Active Omeprazole 20 MG Oral EVERY MORNING April 02, 2022 Active Lisinopril 5 MG Oral DAILY u samreen 2022 Active Metoprolol Succinate 25 MG Oral DAILY April 02, 2022 Active Aripiprazole 5 MG Oral DAILY b ruary 2022 Active Rosuvastatin 10 MG Oral DAILY Mar ruary 2022 Active Levothyroxine 25 MCG Oral EVERY MORNING April 03, 2022 Active Paroxetine Hcl 50 MG Oral DAILY 0 F ebary 2022 Active Doxycycline Hyclate 100 MG Oral TWICE A DAY 14 7 April 09, 2022 Discontinued Doxycycline Hyclate 100 MG Oral EVERY 12 HOURS 28 14 September 25, 2022 Discontinued Encounters Encounter Facility Location Admit/Visit Date Discharge/Departure Date Attending Provider Departed Emergency [facility] Emergency March 20, 2023 6:38pm March 20, 2023 10:20pm Functional Status No known functional status. Immunizations Immunization Name Date Given Type Tetanus, Diphtheria, Pertussis (Tdap) March 242022 Administered Tetanus, Diphtheria, Pertussis (Tdap) September 25, 2022 Administered Plan of Care Instructions ED Chest Pain, Uncertain Cau se Follow-up with your primary care physician, or the referring physician that you were given from the emergency department. Please call on the next business day for an appointment. If your condition changes or worsens at any time please return to the emergency department to be reevaluated. Social History Query Response Date Recorded Comment Lives With Family March 20, 2023 6:50pm Living Situation Private Home March 20, 2023 6:50pm Query Response Start Date Stop Date Smoking Status Former tobacco user Vital Signs Vital Reading Result Reference Range Collection Date/Time Height 1.68 m March 20 6:46pm Weight 86.183 kg March 20 6:46pm Temperature 99.2 F 97.6 F-99.6 F March 20 6:46pm Pulse 89 BPM 60-90 March 20 6:46pm Respiration 16 RPM 12-March 20 6:46pm Pulse Oximetry 94 % 95-100 March 20 024 6:46pm Blood Pressure Systolic 147 90-140 Carrington jolley 2023 6:46pm Blood Pressure Diastolic 77 60-90 Nikita cervantes 2023 6:46pm Body Mass Index 30.7 March 20, 2023 6:46pm
--- OUTSIDE RECORDS SUMMARY | 2023-07-28 10:33 | XMS_ITS | Continuity of Care Document ---
Author Name Unknown Address [address] [place] [address] Phone [facility] Address [address] [place] [address] Phone Care Team Providers Care Manager Order Name Role Phone MD Al Winston Primary Care Provider [phone] MD Randee Dior Attending Provider Chief Complaint and Reason for Visit Chief Complaint M54.2 Allergies, Adverse Reactions, Alerts Allergen Type Severity Reaction Last Updated Verified Status Sulfa (Sulfonamide Antibiotics) Adverse Reaction Unknown Unknown April 20, 2022 11:52pm Yes Active Social History Smoking Status Status Start Date End Date Date of Observa tion Unknown if ever smoked 2022 10:52pm Observation Status Date of Observation Not September 16, 2022 Observation Status Observation Response Date of Response Living Situation Private Home October 05 12:35am Living Situation Private Home October 06 1:56am Living Situation Private Home April 02, 2022 1:19am Other Living Situation trailer April 02, 2022 5:40am Services Prior to Admission None Febr uary 2022 6:12pm Lives With Children April 02 023 6:12pm Living Situation Private Home April 21, 2022 12:30am Additional Data Assigned Sex Female Problems Active Problems Medical Problem Onset Date Status Bradycardia Active Severe sepsis Active Sepsis Active Leg wound, right Active Colon polyps Active Inactive/Resolved Problems Medical Problem Onset Date Status RSV (respiratory syncytial virus infection) Resolved Chest pain Resolved Hypertension Resolved Medications Medication Status Dose Units Route Directions Qty Days St art Date End Date Instructions Lovastatin Discontin ued 40 MG PO DAILY [facility] er 2017 12:00am Februa ry 2022 9:49am Paroxetine Hcl Discontin ued 50 MG PO DAILY [facility] er 2017 12:00am Februa ry 2022 5:14pm Aripiprazole Discontin ued 5 MG PO ONCE [facility] er 2017 12:00am Februa ry 2022 9:49am Prednisone Discontin ued 40 MG PO DAILY 8 4 October 05, 2021 12:00am October 09, 2021 12:22a m Benzonatate Discontin ued 100 MG PO THREE TIMES A DAY October 05, 2021 12:00am Februa ry 2022 9:51am Cyclobenzapri ne Discontin ued 10 MG PO ONCE DAILY AT BEDTIME 2022 1:00am Februa ry 2022 9:49am Cyclobenzapri ne Active 10 MG PO ONCE DAILY AT BEDTIME 2022 1:00am Paroxetine Hcl Active 10 MG PO DAILY 2022 1:00am Meloxicam Active 15 MG PO DAILY 2022 1:00am Gabapentin Active 300 MG PO THREE SAMANTHA ES A DAY 2022 1:00am Omeprazole Active 20 MG PO EVERY MORNING 2022 1:00am Lisinopril Active 5 MG PO DAILY r 2022 1:00am Metoprolol Succinate Active 25 MG PO DAILY 2022 1:00am Aripiprazole Active 5 MG PO DAILY 2022 1:00am Rosuvastatin Active 10 MG PO DAILY 2022 1:00am Levothyroxine Active 25 MCG PO EVERY MORNING 2022 1:00am Paroxetine Hcl Active 50 MG PO DAILY 0 2022 1:00am Doxycycline Hyclate Discontin ued 100 MG PO TWICE A DAY 14 7 2022 1:00am Februa ry 3 1:34am Immunizations Immunization Event Date Not Given Reason Dose Number Reservations And Ticketing Agent Lot Number Vaccine Information Statement (VIS) Detail Tetanus, Diphtheria, Pertussis (Tdap) April 02, 2022 [id number] Procedures Procedure Date Performed Status XR cervical spine 2V September 16, 2022 4:13pm acti ve Advance Directives Advance Directive Response Recorded Date/ Time Advance Directives No October 05, 2021 1:03am Health Care Proxy No October 05, 2 022 1:03am Advance Directives No October 06, 2021 2:05am Health Care Proxy No October 06 2 022 2:05am Advance Directives No March 7:34pm Health Care Proxy No April 02, 2022 6:12pm Advance Directives No April 21 12:10am Health Care Proxy No April 21 12:10am Insurance Providers Guarantor India Tapia Address [address] [place] [phone] Contact Info. Home Phone: Payer Policy Id Coverage Id Subscriber's Name Subscriber Id Effective Date Expiration Date [employer] Medicare ADV [id number] [place] Tapia [id number] [facility] Dual Complete FULL [id number] [place] Tapia [id number] [facility] Medicare [id number] [place] Tapia [id number] Self Pay Self N/A Encounters Encounter Location(s) Arrival/Admit Date Discharge/Depart Date Provider(s) Departed Referred [facility] September 16, 2022 4:01pm September 16, 2022 4:02pm Randee Dior MD Plan of Treatment Future Tests Future scheduled test information is unavailable Pending Tests Test Name Ordered Date Scheduled Date VTE Risk Assessment Medical April 02, 2022 12:58am April 02, 2022 12:58am VTE Risk Assessment Medical April 02, 2022 1:00am April 02, 2022 1:00am XR cervical spine 2V September 16, 2022 4:13pm September 16, 2022 4:13pm Future Visits Future appointment information is unavailable Referrals to Other Providers Reason for Referral Referral Start Date Provider Provider Contact Information Provider Address Fanny wilkerson MD Work Phone: [phone] [facility] [address] Irena Koo MD Work Phon e: [address] [facility] [address] [facility] [address] Lizeth Rivear MD Work Phone: [address] [facility] [address] Fanny wilkerson MD Work Phone: [phone] [facility] [address] [facility] Work Phone : [address] [facility] [address] Olivia Douglass MD Work Tuyet ne: [address] [facility] [address] [facility] [address] Appointment on Saturday, April 16, 2022 at 9:00 AM [facility] Work Phone: [address] [place] [address] [address] [facility], [address] Al Winston MD Work Phone : [phone] [facility] [address] Pedro Bryant am, MD Work Phone: [address] [place] [phone] Followup with [facility] tester sound. Al Winston MD Work Phone : [facility] [address] Future Procedures Procedure Name Ordered Date Scheduled Date Peripheral IV Insert/Manage October 05, 2021 12 :38am October 05, 2021 12:39am Peripheral IV Insert/Manage October 06, 2021 1: 52am October 06, 2021 1:52am Hospital Level of Care April 02, 2022 12:53 am April 02, 2022 12:53am Case Management Consult April 02, 2022 3:38 pm April 02, 2022 3:38pm Discharge April 09, 2022 5:21pm Febru samreen 2022 5:21pm Patient Transfer (from unit to unit) April 08, 2022 5:34pm April 08, 2022 5:34pm Patient Transfer (from unit to unit) April 08, 2022 3:48pm April 08, 2022 3:48pm Wound / Skin Care RN Consult April 02, 2022 12:58am April 02, 2022 12:58am Activity April 02, 2022 12:58am Febr uary 2022 12:58am Activity April 08, 2022 6:44pm Febru samreen 2022 6:44pm Apply Ice to Affected Area April 08, 2022 6 :44pm April 08, 2022 6:44pm Cardiology EP Consult April 04, 2022 6:59pm April 04, 2022 6:59pm Signed Consent on Chart April 08, 2022 4:25 pm April 08, 2022 4:25pm Infectious Disease Consult April 02, 2022 2 :17am April 02, 2022 2:17am Peripheral IV Insert/Manage April 01, 2022 9 :33pm April 01, 2022 9:33pm Peripheral IV Insert/Manage April 08, 2022 6:44pm April 08, 2022 6:44pm Oxygen Initiate/Maintain April 02, 2022 12: 58am April 02, 2022 12:58am Sepsis Fluid Quality Measure April 02, 2022 1:00am April 02, 2022 1:00am Patient Preference for Pain Management April 02, 2022 12:58am April 02, 2022 12:58a m Provider Order to Nurse April 08, 2022 6:44 pm April 08, 2022 6:44pm Continuous Pulse Oximetry April 01, 2022 9:3 3pm April 01, 2022 9:33pm Sequential Compression Device April 02 1:00am April 02, 2022 1:00am Sequential Compression Device April 02 12:58am April 02, 2022 12:58am Peripheral IV Insert/Manage April 21, 2022 12:1 0am April 21, 2022 12:11am Continuous Pulse Oximetry April 21, 2022 12:10a m April 21, 2022 12:11am Future Medications Future medication information is unavailable Patient Instructions ED RSV Infection (Bronchioli tis) ED Hypertension, To Be Confi rmed [facility] em ED Chest Pain, Uncertain Cau se
--- OUTSIDE RECORDS SUMMARY | 2023-07-28 10:33 | XMS_ITS | Continuity of Care Document ---
Author Name [facility] Address [address] [place] [address] Organization [facility] Address [address] [place] [address] Care Team Providers Care Pipeline Superintendent Name Role Phone Heather Mena Emergency Provider Lavon Willis Primary Care Provider [phone] Allergies, Adverse Reactions, Alerts Allergen Type Severity [...] Medical Problem Onset Date Status Bradycardia Active Chest wall pain Active Severe sepsis Active Sepsis Active Pacemaker Active Leg wound, right Active Colon polyps Active Inactive/Resolved Problems Medical Problem Onset Date Status RSV (respiratory syncytial virus infection) Inactive Chest pain Inactive Chest pain Inactive [...] coefficient. Additional information can be found at: [email or web address] ([email or web address]) BUN/Creatinine Ratio March 20, [...] assay has not been fully characterized by [employer]. Total Protein March 20, 2023 7:50pm 7.1 [...] Emergency March 20, 2023 6:38pm pacemaker s [facility] Discharge Instructions No known hospital discharge [...] Date Discharge/Departure Date Attending Provider Departed Emergency [facility] Emergency March 20, 2023 6:38pm March 20, [...]
--- OUTSIDE RECORDS SUMMARY | 2023-07-28 10:33 | XMS_ITS | Continuity of Care Document ---
Author Name [facility] Address [address] [place] [address] Organization [facility] Address [address] [place] [address] Care Team Providers Care Tip Cementer Name Role Phone Heather Mena Emergency Provider Lavon Willis Primary Care Provider [phone] Allergies, Adverse Reactions, Alerts Allergen Type Severity [...] 40 MG Oral DAILY 8 4 Augus 2021October 09, 2021 Discontinued Benzonatate 100 MG [...] 12 HOURS 28 14 September 25, 2022 October 09, 2022 Discontinued [...] completed EKG ED Electrocardiogram March 20, 2023 active Relevant Diagnostic Tests and/or Laboratory Data Laboratory [...] which is obtained from patients medical record." Cockcroft, D.W. and M.H. Gault. Prediction of creatinine clearance from serum creatinine. Nephron. 1976. 16(1):31-41. Estimat Glomerular Filtration Rate March 20, 2023 7:50pm 75 Low >90 Reported eGFR is based on the CKD-EPI 2020 equation that does not use a race coefficient. Additional information can be found at: [email or web address] r_[email or web address] df ([email or web address].org) BUN/Creatinine Ratio March 20, [...] assay has not been fully characterized by [employer]. Total Protein March 20, 2023 7:50pm 7.1 [...] Emergency March 20, 2023 6:38pm pacemaker s [facility] Discharge Instructions No known hospital discharge instructions. Hospital Discharge Medications Medication Dose Units Route Sig Qty Days Order Date Status Ins tructions Lovastatin 40 MG Oral DAILY [id number] Discontinued Paroxetine Hcl 50 MG Oral DAILY S eptember 2017 Discontinued Aripiprazole 5 MG Oral ONCE Sep 2017 Discontinued Prednisone 40 MG Oral DAILY 8 4 t 2021 Discontinued Benzonatate 100 MG Oral THREE TIMES A DAY October 05, 2021 Discontinued Cyclobenzaprine 10 MG Oral ONCE DAILY AT BEDTIME April 02, 2022 Discontinued Cyclobenzaprine 10 MG Oral ONCE DAILY AT BEDTIME April 02, 2022 Active Paroxetine Hcl 10 [facility] Active Meloxicam 15 MG Oral DAILY ua ry 2022 Active Gabapentin 300 MG Oral THREE TIMES A DAY April 02, 2022 Active Omeprazole 20 MG Oral EVERY MORNING April 02, 2022 Active Lisinopril 5 MG Oral DAILY u samreen2022 Active Metoprolol Succinate 25 MG Oral DAILY April 02, 2022 Active Aripiprazole 5 MG Oral DAILY b ruary 2022 Active Rosuvastatin 10 MG Oral DAILY Mar ruary 2022 Active Levothyroxine 25 MCG Oral EVERY MORNING April 03, 2022 Active Paroxetine Hcl 50 MG Oral DAILY [facility] Active Doxycycline Hyclate 100 MG Oral TWICE A DAY 14 7 April 09, 2022 Discontinued Doxycycline Hyclate 100 MG Oral EVERY 12 HOURS 28 14 September 25, 2022 Discontinued Encounters Encounter Facility Location Admit/Visit Date Discharge/Departure Date Attending Provider Departed Emergency [facility] Emergency March 20, 2023 6:38pm March [...] 60-90 March 20 6:46pm Respiration 16 RPM 12-24 March 20 6:46pm Pulse Oximetry 94 % 95-100 March 20 024 6:46pm Blood Pressure Systolic 147 90-140 Carrington jolley 2023 6:46pm Blood Pressure Diastolic 77 60-90 Nikita cervantes 2023 6:46pm Body Mass Index 30.7 March 20, 2023 6:46pm
--- OUTSIDE RECORDS SUMMARY | 2023-07-28 10:33 | XMS_ITS | Continuity of Care Document ---
Author Name Unknown Address [address] [place] [address] Phone [facility] Address [address] [place] [address] Phone Care Team Providers Care Dog Or Animal Sitter Name Role Phone MD [facility] Provider DO Salty Blair Attending Provider MD Gail Ricketts Other Provider MD [facility] Provider [phone] MD Pedro Phelps Other Provider MD George Flor Attending Provider [phone] MD Erendira [place] Emergency Provider Chief Complaint and Reason for Visit Chief Complaint severe sepsis cellul itis wound eval CHEST PAIN Reason for Visit Bradycardia Leg wound, right Sepsis Severe sepsis Allergies, Adverse Reactions, Alerts Allergen Type Severity Reaction Last Updated Verified Status Sulfa (Sulfonamide Antibiotics) Adverse Reaction Unknown Unknown April 20, 2022 10:52pm Yes Active Social History Smoking Status Status Start Date End Date Date of Observa tion Former smoker October 06, 2 022 1:14am Observation Status Observation Response Date of Response Living Situation Private Home April 20, 2022 11:30pm Lives With Children April 02 2 023 5:12pm Living Situation Private Home April 02, 2022 12:19am Other Living Situation trailer April 02, 2022 4:40am Services Prior to Admission None Febr [email or web address] 5:12pm Additional Data Assigned Sex Female Problems Active Problems Medical Problem Onset Date Status Bradycardia Active Severe sepsis Active Sepsis Active Leg wound, right Active Chest pain Active Colon polyps Active Inactive/Resolved Problems Medical Problem Onset Date Status RSV (respiratory syncytial virus infection) Resolved Hypertension Resolved Medications Medication Status Dose Units Route Directions Qty Days St art Date End Date Instructions Lovastatin Discontin ued 40 MG PO DAILY [facility] er 2017 11:00pm Februa ry 2022 8:49am Paroxetine Hcl Discontin ued 50 MG PO DAILY [facility] er 2017 11:00pm Februa ry 2022 4:14pm Aripiprazole Discontin ued 5 MG PO ONCE [facility] er 2017 11:00pm Februa ry 2022 8:49am Prednisone Discontin ued 40 MG PO DAILY 8 October 04, 2021 11:00pm October 08, 2021 11:22p m Benzonatate Discontin ued 100 MG PO THREE TIMES A DAY October 04, 2021 11:00pm Februa ry 2022 8:51am Cyclobenzapri ne Discontin ued 10 MG PO ONCE DAILY AT BEDTIME 2022 12:00am Februa ry 2022 8:49am Cyclobenzapri ne Active 10 MG PO ONCE DAILY AT BEDTIME 2022 12:00am Paroxetine Hcl Active 10 MG PO DAILY 2022 12:00am Meloxicam Active 15 MG PO DAILY 2022 12:00am Gabapentin Active 300 MG PO THREE SAMANTHA ES A DAY 2022 12:00am Omeprazole Active 20 MG PO EVERY MORNING 2022 12:00am Lisinopril Active 5 MG PO DAILY 2022 12:00am Metoprolol Succinate Active 25 MG PO DAILY 2022 12:00am Aripiprazole Active 5 MG PO DAILY 2022 12:00am Rosuvastatin Active 10 MG PO DAILY 2022 12:00am Levothyroxine Active 25 MCG PO EVERY MORNING 2022 12:00am Paroxetine Hcl Active 50 MG PO DAILY 0 y 2022 12:00am Doxycycline Hyclate Discontin ued 100 MG PO TWICE A DAY 14 7 y 2022 12:00am Februa ry 2022 12:34a m Immunizations Immunization Event Date Not Given Reason Dose Number [facility] Lot Number Vaccine Information Statement (VIS) Detail Tetanus, Diphtheria, Pertussis (Tdap) April 02, 2022 [id number] Procedures Procedure Date Performed Status CT angio chest with contrast April 20, 2022 11:18pm completed EKG ED Electrocardiogram April 20, 2022 11: 15pm active XR chest 1V portable April 20, 2022 11:11pm completed EKG ED Electrocardiogram April 01, 2022 8:33 pm completed XR chest 1V portable April 01, 2022 8:33pm c ompleted XR tibia fibula RT 2V April 01, 2022 11:28pm completed CT head/brain wo contrast April 02, 2022 12 :00am completed CT elbow LT w contrast April 02, 2022 12:00 am completed Echo TTE cmp w/dop wo contrast April 05 3:31pm completed EKG Electrocardiogram April 09, 2022 5:00am completed XR chest 2V April 09, 2022 5:00am compl eted Methicillin-Resist S. Aureus (PCR) completed Blood Culture completed Blood Culture completed Gram Stain completed Superficial Wound Culture comple abhijit Relevant Diagnostic Tests and/or Laboratory Data Laboratory Results Test Date/Time Result Interpretation Reference Range Result Comment Performing Site White Blood Count April 09, 2022 4:20am 8.70 K/uL 4.30-10.00 [facility] [id number] [address] [place] [address] White Blood Count April 20, 2022 11:19pm 7.89 K/uL 4.30-10.00 [facility] [id number] [address] [place] [address] Red Blood Count April 09, 2022 4:20am 4.09 M/uL 3.80-5.00 [facility] [id number] [address] [facility] [address] Red Blood Count April 20, 2022 11:19pm 4.15 M/uL 3.80-5.00 [facility] [id number] [address] [facility] [address] Hemoglobin April 09, 2022 4:20am 11.3 gm/dL 12.0-15.0 [facility] [id number] [address] [facility] [address] Hemoglobin April 20, 2022 11:19pm 11.5 gm/dL 12.0-15.0 [facility] [id number] [address] [facility] [address] Hematocrit April 09, 2022 4:20am 36.2 % 35.0-45.0 [facility] [id number] [address] [facility] [address] Hematocrit April 20, 2022 11:19pm 35.1 % 35.0-45.0 [facility] [id number] [address] [facility] [address] Mean Corpuscular Volume April 09, 2022 4:20am 88.5 fL 85.0-100.0 [facility] [id number] [address] [facility] [address] Mean Corpuscular Volume April 20, 2022 11:19pm 84.6 fL 85.0-100.0 [facility] [id number] [address] [facility] [address] Mean Corpuscular Hemoglobin April 09, 2022 4:20am 27.6 pg 27.0-33.0 [facility] [id number] [address] [facility] [address] Mean Corpuscular Hemoglobin April 20, 2022 11:19pm 27.7 pg 27.0-33.0 [facility] [id number] [address] [facility] [address] Mean Corpuscular Hemoglobin Concent April 09, 2022 4:20am 31.2 gm/dL 32.0-36.0 [facility] [id number] [address] [facility] [address] Mean Corpuscular Hemoglobin Concent April 20, 2022 11:19pm 32.8 gm/dL 32.0-36.0 [facility] [id number] [address] [facility] [address] Red Cell Distribution Width April 09, 2022 4:20am 13.0 % 11.5-14.5 [facility] [id number] [address] [facility] [address] Red Cell Distribution Width April 20, 2022 11:19pm 13.7 % 11.5-14.5 [facility] [id number] [address] [facility] [address] Platelet Count April 09, 2022 4:20am 238 K/uL 150-400 [facility] [id number] [address] [facility] [address] Platelet Count April 20, 2022 11:19pm 246 K/uL 150-400 [facility] [id number] [address] [facility] [address] Absolute Neutrophil April 09, 2022 4:20am 5.4 K/uL 2.0-7.0 [facility] [id number] [address] [facility] [address] Absolute Neutrophil April 20, 2022 11:19pm 4.0 K/uL 2.0-7.0 [facility] [id number] [address] [facility] [address] Immature Granulocyte % (Auto) April 09, 2022 4:20am 0.6 % 0-1 [facility] [id number] [address] [facility] [address] Immature Granulocyte % (Auto) April 20, 2022 11:19pm 0.3 % 0-1 [facility] [id number] [address] [facility] [address] Neutrophils (%) (Auto) April 09, 2022 4:20am 62.9 % 45.0-75.0 [facility] [id number] [address] [facility] [address] Neutrophils (%) (Auto) April 20, 2022 11:19pm 51.9 % 45.0-75.0 [facility] [id number] [address] [facility] [address] Lymphocytes (%) (Auto) April 09, 2022 4:20am 21.3 % 20.0-40.0 [facility] [id number] [address] [facility] [address] Lymphocytes (%) (Auto) April 20, 2022 11:19pm 32.4 % 20.0-40.0 [facility] [id number] [address] [facility] [address] Monocytes (%) (Auto) April 09, 2022 4:20am 11.4 % 1.0-13.1 [facility] [id number] [address] [facility] [address] Monocytes (%) (Auto) April 20, 2022 11:19pm 11.3 % 1.0-13.1 [facility] [id number] [address] [facility] [address] Eosinophils (%) (Auto) April 09, 2022 4:20am 3.0 % 0-5 [facility] [id number] [address] [facility] [address] Eosinophils (%) (Auto) April 20, 2022 11:19pm 3.5 % 0-5 [facility] [id number] [address] [facility] [address] Basophils (%) (Auto) April 09, 2022 4:20am 0.8 % 0.0-1.0 [facility] [id number] [address] [facility] [address] Basophils (%) (Auto) April 20, 2022 11:19pm 0.6 % 0.0-1.0 [facility] [id number] [address] [facility] [address] Nucleated Red Blood Cells April 09, 2022 4:20am 0.0 /100 WBC 0.0-1.0 [facility] [id number] [address] [facility] [address] Nucleated Red Blood Cells April 20, 2022 11:19pm 0.0 /100 WBC 0.0-1.0 [facility] [id number] [address] [facility] [address] Erythrocyte Sedimentation Rate April 08, 2022 5:14am 27 mm 0-15 [facility] [id number] [address] [facility] [address] Hemoglobin A1c April 01, 2022 8:49pm 5.5 % 4.0-6.0 Interpretation Guidelines: Non-Diabetic: 4.0-6.0 % Good Diabetic Control: 6.0-8.0 % Diabetic Action Suggested: >8.0 % [facility] [id number] [address] [facility] [address] Prothrombin Time April 01, 2022 8:49pm 10.7 seconds 9.3-12.1 [facility] [id number] [address] [facility] [address] Prothromb Time International Ratio April 01, 2022 8:49pm 1.0 0.9-1.2 Reference Interval is for non-anticoagulat ed patients.Suggest ed INR Therapeutic Range for Vitamin K antogonist therapy:LEVELS OF THERAPY INDICATIONS TARGET INR RANGEStandard Dose Venous Thrombosis, 2.0 - 3.0 Atrial Fibrillation, Pulmonary Embolism. High Dose Valvular Heart Disease, 2.5 - 3.5 Mechanical Heart, Intracardiac Thrombosis. [facility] [id number] [address] [facility] [address] Activated Partial Thromboplast Time April 01, 2022 8:49pm 25.8 seconds 23.9-32.8 [facility] [id number] [address] [place] [address] Anti-Xa Level April 01, 2022 8:49pm < 0.10 IU/mL 0.30-0.70 [facility] [id number] [address] [place] [address] Urine Color April 01, 2022 10:52pm Yellow Yellow [facility] [id number] [address] [facility] [address] Urine Clarity April 01, 2022 10:52pm Clear Clear [facility] [id number] [address] [facility] [address] Urine pH April 01, 2022 10:52pm 7.5 5.0-8.0 [facility] [id number] [address] [facility] [address] Urine Specific [place] April 01, 2022 10:52pm <= 1.005 1.005-1.03 0 [facility] [id number] [address] [place] [address] Urine Blood April 01, 2022 10:52pm Negative mg/dL Negative [facility] [id number] [address] [facility] [address] Urine Protein April 01, 2022 10:52pm Negative mg/dl Negative [facility] [id number] [address] [facility] [address] Urine Glucose (UA) April 01, 2022 10:52pm Negative mg/dL Negative [facility] [id number] [address] [facility] [address] Urine Ketones April 01, 2022 10:52pm Negative mg/dL Negative [facility] [id number] [address] [facility] [address] Urine Nitrate April 01, 2022 10:52pm Negative Negative [facility] [id number] [address] [facility] [address] Urine Bilirubin April 01, 2022 10:52pm Negative mg/dL Negative [facility] [id number] [address] [facility] [address] Urine Urobilinogen April 01, 2022 10:52pm 1.0 E.U./dL 0.2 [facility] [id number] [address] [facility] [address] Urine Leukocyte Esterase April 01, 2022 10:52pm Trace mg/dL Negative [facility] [id number] [address] [facility] [address] Sodium Level April 09, 2022 4:20am 139 mEq/l 132-146 [facility] [id number] [address] [facility] [address] Sodium Level April 20, 2022 11:19pm 136 mEq/l 132-146 [facility] [id number] [address] [facility] [address] Potassium Level April 09, 2022 4:20am 3.9 mEq/L 3.4-5.2 [facility] [id number] [address] [facility] [address] Potassium Level April 20, 2022 11:19pm 3.6 mEq/L 3.4-5.2 [facility] [id number] [address] [facility] [address] Chloride Level April 09, 2022 4:20am 106 mEq/L 93-109 [facility] [id number] [address] [facility] [address] Chloride Level April 20, 2022 11:19pm 100 mEq/L 93-109 [facility] [id number] [address] [facility] [address] Carbon Dioxide Level April 09, 2022 4:20am 25.0 mEq/L 20.0-32.0 [facility] [id number] [address] [facility] [address] Carbon Dioxide Level April 20, 2022 11:19pm 27.0 mEq/L 20.0-32.0 [facility] [id number] [address] [facility] [address] Anion Gap April 09, 2022 4:20am 8 5-20 [facility] [id number] [address] [facility] [address] Anion Gap April 20, 2022 11:19pm 9 5-20 [facility] [id number] [address] [facility] [address] Blood Urea Nitrogen April 09, 2022 4:20am 11 mg/dL 08-12 [facility] [id number] [address] [facility] [address] Blood Urea Nitrogen April 20, 2022 11:19pm 14 mg/dL 08-12 [facility] [id number] [address] [facility] [address] Creatinine April 09, 2022 4:20am 0.60 mg/dL 0.50-1.70 [facility] [id number] [address] [facility] [address] Creatinine April 20, 2022 11:19pm 0.70 mg/dL 0.50-1.70 [facility] [id number] [address] [facility] [address] Estimated Creatinine Clearance April 09, 2022 4:20am 68 mL/min This value is calculated by Cockcroft Gault Equation using ideal body weight. This result is dependent on an accurate patient height and weight which is obtained from patients medical record. Iris Gallagher. and M.H. Gatravis. Prediction of creatinine clearance from serum creatinine. Nephron. 1976. 16(1):31-41. [facility] [id number] [address] [facility] [address] Estimated Creatinine Clearance April 20, 2022 11:19pm 65 mL/min This value is calculated by Cockcroft Gault Equation using ideal body weight. This result is dependent on an accurate patient height and weight which is obtained from patients medical record. Gama GallagherW. and M.HIsaías Mtz. Prediction of creatinine clearance from serum creatinine. Nephron. 1976. 16(1):31-41. [facility] [id number] [address] [facility] [address] Estimat Glomerular Filtration Rate April 09, 2022 4:20am 92 >90 Reported eGFR is based on the CKD-EPI 2020 equation that does not use a race coefficient. Additional information can be found at:[email or web address] ([email or web address]) [facility] [id number] [address] [facility] [address] Estimat Glomerular Filtration Rate April 20, 2022 11:19pm 89 >90 Reported eGFR is based on the CKD-EPI 2020 equation that does not use a race coefficient. Additional information can be found at:[email or web address] ([email or web address]) [facility] [id number] [address] [facility] [address] BUN/Creatinine Ratio April 09, 2022 4:20am 18 Ratio 6-20 [facility] [id number] [address] [facility] [address] BUN/Creatinine Ratio April 20, 2022 11:19pm 20 Ratio 6-20 [facility] [id number] [address] [facility] [address] Glucose Level April 09, 2022 4:20am 83 mg/dL 68-100 [facility] [id number] [address] [facility] [address] Glucose Level April 20, 2022 11:19pm 91 mg/dL 68-100 [facility] [id number] [address] [facility] [address] Calculated Osmolality April 09, 2022 4:20am 276 mOsm/kg 270-290 [facility] [id number] [address] [facility] [address] Calculated Osmolality April 20, 2022 11:19pm 272 mOsm/kg 270-290 [facility] [id number] [address] [facility] [address] Lactic Acid Level April 05, 2022 6:54am 1.0 mmo/L 0.5-2.0 [facility] [id number] [address] [facility] [address] Calcium Level April 09, 2022 4:20am 8.4 mg/dL 8.0-10.4 [facility] [id number] [address] [facility] [address] Calcium Level April 20, 2022 11:19pm 9.3 mg/dL 8.0-10.4 [facility] [id number] [address] [facility] [address] Magnesium Level April 06, 2022 5:36am 2.0 mg/dL 1.6-2.3 [facility] [id number] [address] [facility] [address] Total Bilirubin April 09, 2022 4:20am 0.4 mg/dL 0.1-1.2 [facility] [id number] [address] [facility] [address] Total Bilirubin April 20, 2022 11:19pm 0.6 mg/dL 0.1-1.2 [facility] [id number] [address] [facility] [address] Aspartate Amino Transf (AST/SGOT) April 09, 2022 4:20am 39 IU/L 4-44 [facility] [id number] [address] [facility] [address] Aspartate Amino Transf (AST/SGOT) April 20, 2022 11:19pm 20 IU/L 4-44 [facility] [id number] [address] [facility] [address] Alanine Aminotransfera se (ALT/SGPT) April 09, 2022 4:20am 30 IU/L 5-40 [facility] [id number] [address] [facility] [address] Alanine Aminotransfera se (ALT/SGPT) April 20, 2022 11:19pm 17 IU/L 5-40 [facility] [id number] [address] [place] [address] Troponin I High Sensitivity April 01, 2022 11:49pm 10 ng/L 0-12 Effective Jul 17 2019 Range:Testing is reported out in ng/L to compare to other results in ng/dL divide by 1000.Values <20 ng/L will be considered normal - MaleValues <12 ng/L will be considered normal - FemaleValues >/=500 ng/L will be considered abnormal, and [...] assay has not been fully characterized by [employer]. [facility] [id number] [address] [place] [address] Troponin I High Sensitivity April 21, 2022 12:01am 5 ng/L 0-12 Delta: 7 on 04/20/22-2318Eff ective Jul 17 2019 Range:Testing is reported out in ng/L to compare to other results in ng/dL divide by 1000.Values <20 ng/L will be considered normal - MaleValues <12 ng/L will be considered normal - FemaleValues >/=500 ng/L will be considered abnormal, and [...] assay has not been fully characterized by [employer]. [facility] [id number] [address] [facility] [address] C-Reactive Protein April 08, 2022 5:14am 8.00 mg/L 0.00-9.00 [facility] [id number] [address] [facility] [address] C-Reactive Protein High Sensitivity April 01, 2022 8:49pm 47.050 mg/L 0.000-7.48 0 The [employer] states the best evidence to date supports the use of hs-CRP as an independent predictor of increased coronary risk.The defined risk groups are as follows:Low Risk: Less than 1.0 mg/LAverage Risk: 1.0 to 3.0 mg/LHigh Risk: Above 3.0 mg/LIf the hs-CRP level is >10 mg/L, the test should be repeated, and patient examined for sources of infection or inflammation. [facility] [id number] [address] [facility] [address] Total Protein April 09, 2022 4:20am 6.0 g/dL 5.6-8.0 [facility] [id number] [address] [facility] [address] Total Protein April 20, 2022 11:19pm 6.9 g/dL 5.6-8.0 [facility] [id number] [address] [facility] [address] Albumin April 09, 2022 4:20am 3.4 g/dL 3.2-5.2 [facility] [id number] [address] [facility] [address] Albumin April 20, 2022 11:19pm 4.1 g/dL 3.2-5.2 [facility] [id number] [address] [facility] [address] Globulin April 09, 2022 4:20am 2.6 g/dL 2.0-3.9 [facility] [id number] [address] [facility] [address] Globulin April 20, 2022 11:19pm 2.8 g/dL 2.0-3.9 [facility] [id number] [address] [facility] [address] Albumin/Globul in Ratio April 09, 2022 4:20am 1.3 0.9-1.8 [facility] [id number] [address] [facility] [address] Albumin/Globul in Ratio April 20, 2022 11:19pm 1.5 0.9-1.8 [facility] [id number] [address] [facility] [address] Alkaline Phosphatase April 09, 2022 4:20am 67 U/L 34-128 [facility] [id number] [address] [facility] [address] Alkaline Phosphatase April 20, 2022 11:19pm 70 U/L 34-128 [facility] [id number] [address] [facility] [address] Thyroid Stimulating Hormone (Reflex April 04, 2022 5:44am 3.36 uIU/mL 0.340-5.60 0 *ALERT! NEW NORMAL RANGE (0.34-5.6 uIU/mL)The hTSH results should be interpreted in light of the total clinical presentation of the patient, including: symptoms, data from additional tests, and other appropriate information. This assay is not validated for testing serum hTSH levels. [facility] [id number] [address] [facility] [address] Procalcitonin April 08, 2022 5:14am < 0.05 ng/mL 0.00-0.08 PCT Concentration (ng/mL or ug/mL) Value Interpretation<0 .5 Low risk of severe sepsis and/or septic shock.>2.0 High risk of severe sepsis and/or septic shock. PCT results should be used in conjunction with all laboratory findings and full clinical picture of the patientConcentra tions <0.5 ng/mL do not exclude local or systemic infections in their initial stages (under six hours from onset of illness)PCT concentrations between 0.5 and 2.0 ng/mL should be interpreted with consideration of the patient's history. In this range, it is recommended to retest PCT within six to 24 hours. Elevated PCT levels may be seen in conditions other than systemic bacterial infection. These may include but are not limited to: polytrauma, mccormick, major surgery and prolonged or cardiogenic shock. In addition, certain patient characteristics including, renal insufficiency or failure, may impact PCT levels and should be considered as potentially confounding clinical factors when evaluating PCT results. [facility] [id number] [address] [facility] [address] Vancomycin Level Trough April 08, 2022 5:14am 12.4 ug/mL 10.0-20.0 [facility] [id number] [address] [place] [address] Random Vancomycin Level April 09, 2022 4:20am 6.6 ug/mL [facility] [id number] [address] [place] [address]73 Microbiology Results Procedure Source Result Collection Date/Time Result Date/Time Result Comment Performing Site Gram Stain Ankle,Rig ht April 02, 2022 4:49pm [facility] [id number] [address] [facility] [address] Superficial Wound Culture Ankle,Rig ht Methicillin Resis Staph Aureus April 06, 2022 12:21pm [facility] [id number] [address] [place] [address] Ankle,Rig ht Strep pyogenes -group a April 06, 2022 12:21pm [facility] [id number] [address] [place] [address] 33068 Ankle,Rig ht Pseudomonas stutzeri April 06, 2022 12:21pm [facility] [id number] [address] [place] [address] Methicillin-Re sist S. Aureus (PCR) Nares April 08, 2022 5:57pm [facility] [id number] [address] [place] [address]910 Blood Culture Blood NO GROWTH AFTER 5 DAYS April 06, 2022 9:19pm [facility] [id number] [address] [place] [address] 37268 Blood Culture Blood NO GROWTH AFTER 5 DAYS April 06, 2022 9:17pm [facility] [id number] [address] [place] [address] Diagnostic Imaging Reports Report Dictated Date/Time Dictated By Status Radiology Report April 01, 2022 10:00pm Jared constantino MD completed [address] [address] Patient Name: India Tapia Medical Record#: [id number] Address: [address] [place] [address] City/State/Zip: [place] [address]: Addy Carey MD Insurance: [facility] Dual Complete FULL /Age/Sex: 1945/F Self Pay Admit/Reg Date: 04/01/[address]: Addy vela MD Location: ED./ PCP: Fanny Marx MD Date of Service: 04/01/22 Order (s): XR chest 1V portable CPT Code: 14812 Report Number: [id number] Reason for Exam: cp Indication: cp Date of exam:04/01/2022 7:33 PM ADOPTION WORKER Comparison: [10/05/2021] Impression: Portable AP chest radiograph shows no consolidation. No large pleural effusion or pneumothorax. Minimal linear opacity in the mid to lower left lung is present on prior exam as well and likely represents scarring. Electronically signed by: Jared Max MD 04/01/2022 9:00 PM ADOPTION WORKER Dictated By: Jared Max MD 04/01/222199 Signed By: Jared Max MD 04/01/222201 TD/TT: 04/01/222199Tech: [id number] cc: [id number]; JEISON* Fanny Marx MD; Addy Carey MD Report Dictated Date/Time Dictated By Status Radiology Report April 02, 2022 12:23am Jraed Max MD completed [place] [id number] Patient Name: India Tapia Medical Record#: [id number] Address: [address] [place] [address] City/State/Zip: [place] [address]: Alfredo Blair DO Insurance: [facility] Dual Complete FULL /Age/Sex: 1945/F Self Pay Admit/Reg Date: 04/01/[address]: Addy vela MD Location: ED[facility].RL-08 PCP: Cristina Marx MD Date of Service: 04/01/22 Order (s): XR tibia fibula RT 2V CPT Code: 15237 Report Number: [id number] Reason for Exam: wound Indication: wound Date of exam:04/01/2022 10:28 PM ADOPTION WORKER Impression: 2 views of the right tibia and fibula show No acute fracture or malalignment. No radiopaque foreign body. Electronically signed by: Jared Max MD 04/01/2022 11:23 PM ADOPTION WORKER Dictated By: Jared Max MD 04/02/2222 Signed By: Jared Max MD 04/02/2224 TD/TT: 04/02/2222Tech: [id number] cc: [id number]; HESRO* Fanny Marx MD; Addy Carey MD Report Dictated Date/Time Dictated By Status Radiology Report April 02, 2022 2:02am Fabio Fernandez MD completed [place] [address] Patient Name: India Tapia Medical Record#: [id number] Address: [address] [place] [address] City/State/Zip: [place] [id number]: Alfredo Blair DO Insurance: [facility] Dual Complete FULL /Age/Sex: 1945/76/F Self Pay Admit/Reg Date: 04/01/[address]: Addy vela MD Location: ED.[facility].RL-08 PCP: Cristina Marx MD Date of Service: 04/02/22 Order (s): CT head/brain wo contrast CPT Code: 58960 Report Number: [id number] Reason for Exam: ams CT HEAD WITHOUT IV CONTRAST COMPARISON: 06/05/2018 COMPLETED DATE: 04/01/2022 11:00 PM ADOPTION WORKER CLINICAL INFORMATION: Patient Age: 76 years Patient Gender: Female Clinical Information: AMS TECHNIQUE: Serial axial CT images were acquired from the base of the skull through the vertex. Sagittal and coronal reformats were obtained. IV contrast: None. This exam was performed according to our departmental dose-optimization program which includes automated exposure control, adjustment of the mA and/or kV according to patient size and/or use of iterative reconstruction technique to meet ALARA standards for radiation dose reduction. FINDINGS: The ventricles, sulci and cisterns are of a normal size and configuration for chronologic age. There is age-appropriate global cerebral atrophy. There is no intracranial mass lesion, mass effect or midline shift. There is no acute intra-axial or extra-axial hemorrhage. There is no abnormal intra-axial or extra-axial fluid collection. Mild periventricular white matter hypodensity is noted likely due to demyelination from chronic small vessel ischemic changes. There is no grossly acute talbert-white differentiation loss appreciated. 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 Visualized portions of the paranasal sinuses are clear. Visualized portions of the mastoid air cells are clear. The bone windows do not reveal an acute or destructive abnormality. IMPRESSION: 1. No acute intracranial abnormality identified. 2. Mild chronic periventricular white matter small vessel ischemic changes. Electronically signed by: Fabio Fernandez MD 04/02/2022 1:02 AM ADOPTION WORKER Dictated By: Fabio Fernandez MD 04/02/22201 Signed By: Fabio Fernandez MD 04/02/22204 TD/TT: 04/02/22201Tech: [id number] cc: [id number]; ZIONRO* Fanny Marx MD; Addy Carey MD Report Dictated Date/Time Dictated By Status Radiology Report April 02, 2022 2:14am Jared Max MD completed [address] [address] Patient Name: India Tapia Medical Record#: [id number] Address: [address] [place] [address] City/State/Zip: [place] [address]: Alfredo Blair DO Insurance: [facility] Dual Complete FULL /Age/Sex: 1945/76/F Self Pay Admit/Reg Date: 04/01/[address]: Salty Blair DO Location: ED.[place] [address] PCP: Cristina Marx MD Date of Service: 04/02/22 Order (s): CT elbow LT w contrast CPT Code: 36343 Report Number: [id number] Reason for Exam: Assess for septic arthritis, abscess Indication: Assess for septic arthritis, abscess Date of exam: 04/01/2022 11:00 PM ADOPTION WORKER Exam: CT of the left elbow using 75 mL Omnipaque 300 IV contrast.. This exam was performed according to our departmental dose-optimization program which includes automated exposure control, adjustment of the mA and/or kV according to patient size and/or use of iterative reconstruction technique.. Comparison: None Findings: There is edema of the elbow posteriorly. No organized fluid collection to suggest abscess. There is no obvious joint effusion identified. No osseous destructive changes. Impression: Soft tissue swelling of the posterior elbow which could represent cellulitis. No organized fluid collection to suggest abscess. No evidence of elbow joint effusion to suggest septic arthritis. Electronically signed by: Jared Max MD 04/02/2022 1:14 AM ADOPTION WORKER Dictated By: Jared Max MD 04/02/22213 Signed By: Jared Max MD 04/02/22216 TD/TT: 04/02/22213Tech: [id number] cc: [id number]; [email or web address]* Fanny Marx MD; Salty Blair DO Report Dictated Date/Time Dictated By Status Echocardiogram April 06, 2022 6:43pm Pedro Phelps MD completed [address] [address] Patient Name: India Tapia Medical Record#: [id number] Address: [address] [place] [address] City/State/Zip: [place] [address]: Alfredo Blair DO Insurance: [facility] Dual Complete FULL /Age/Sex: 1945/76/F Self Pay Admit/Reg Date: 04/01/[address]: Johnna Coates NP Location: .[place] 930361-1 PCP: Al Winston MD Date of Service: 04/05/22 Order (s): Echo TTE cmp w/dop wo contrast CPT Code: 78167 Report Number: [id number] Reason for Exam: bradycardia with AV block Transthoracic Echocardiography Report (TTE) Demographics Patient Name Willie Keyes Gender Female MR Number [id number] Date of 1945 Age 76 year(s) Room Number RL311 Height 68 inches Date of study 04/06/2022 Weight 191.32 pounds Referring MD BSA 2.01 m^2 Interpreting MD Pedro Phelps BMI 29.09 kg/m^2 MD Fellow Maori Liaison Adviser Gabbie Hodges [facility] Conclusions Summary EF Calculated: 70 % Mild , posteriorly directed mitral regurgitation. Mild mitral annular calcification. Mild aortic regurgitation. Aortic valve is tricuspid. Leaflets of aortic valve are mildly thickened. Mild tricuspid regurgitation. RVSP 7 mmHg. Left atrium is normal in size. Right atrium is normal in size. Atrial septum is intact with no evidence of shunt by color flow Doppler. Left ventricular systolic function is normal (LVEF 55 - 75%). Left ventricular cavity is normal in size. Right ventricular structure and systolic function are normal. There is no pericardial effusion. Findings MITRAL VALVE: Mild , posteriorly directed mitral regurgitation. Mild mitral annular calcification. AORTIC VALVE: Mild aortic regurgitation. Aortic valve is tricuspid. Leaflets of aortic valve are mildly thickened. TRICUSPID VALVE: Mild tricuspid regurgitation. RVSP 7 mmHg. ATRIA: Left atrium is normal in size. Right atrium is normal in size. Atrial septum is intact with no evidence of shunt by color flow Doppler. LEFT VENTRICLE: Left ventricular systolic function is normal (LVEF 55 - 75%). Left ventricular cavity is normal in size. EF CALCULATED: 70 % RIGHT VENTRICLE: Right ventricular structure and systolic function are normal. PERICARDIAL AND PLEURA: There is no pericardial effusion. Type of Study TTE procedure: Echo complete w doppler (MT 6.1). Technical Quality: Poor visualizationStudy Location: Portable Indications: 10 - Bradycardia, Unspecified - R00.1. Patient Status: Routine HR: 77 bpmBP: 116/53 mmHg Atria LA Dimension: 2.5 cm LA Systolic Pressure: 12.84 mmHg LA/Aorta: 0.76 Left Ventricle Diastolic Dimension: 5.08 cm Systolic Dimension: 3.41 cm Septum Diastolic: 0.91 cm PW Diastolic: 0.89 cm FS: 32.87 % LV ESV/LV ESV Index: 39.7 ml/20 m^2 LV EDV/LV EDV Index: 131 ml/65 m^2 EF Calculated: 70 % CI: 2.76 l/min*m^2 CO: 5.54 l/min Right Ventricle Diastolic Dimension: 3.55 cm Miscellaneous Aorta Aortic Root: 3.3 cm Ascending Aorta: 2.8 cm Vena Cava IVC Inspirium: 0.67 cm IVC Expirium: 1.83 cm Mitral Valve Peak E-Wave: 91.9 cm/s Peak A-Wave: 98.2 cm/s P1/2t: 86 msec E/A Ratio: 0.94 Peak Gradient: 3.38 mmHg Area (PHT): 2.56 cm^2 Deceleration Time: 234 msec MR Velocity: 434 cm/s Tissue Doppler Aortic Valve Peak Velocity: 165 cm/s Mean Velocity: 103 cm/s Peak Gradient: 10.89 mmHg Mean Gradient: 5 mmHg Area (continuity): 2.01 cm^2 AV VTI: 35.9 cm Cusp Separation: 2 cm Tricuspid Valve TR Velocity: 106 cm/s TR Gradient: 4.49 mmHg Pulmonic Valve Peak Velocity: 99.1 cm/s Peak Gradient: 3.93 mmHg CO ED Velocity: 84.2 cm/s LVOT Peak Velocity: 123 cm/s Mean Velocity: 72.4 cm/s Peak Gradient: 6 mmHg Mean Gradient: 3 mmHg LVOT Diameter: 1.9 cm LVOT VTI: 25.4 cm Signature Dictated By: Pedro Phelps MD 04/06/221842 Signed By: Pedro Phelps MD 04/07/222139 TD/TT: 04/06/221842Tech: [id number] cc: [email or web address]; ANA LUISA; CATEPO* Johnna Coates, SILVANA; Al Winston MD; Pedro Phelps MD Report Dictated Date/Time Dictated By Status Radiology Report April 09, 2022 10:04am Giorgio Wyatt DO completed [place] [id number] Patient Name: India Tapia Medical Record#: [id number] Address: [address] [place] [address] City/State/[place]: [place] [address]: Alfredo Bliar DO Insurance: [facility] Dual Complete FULL /Age/Sex: 1945/76/F Self Pay Admit/Reg Date: 04/01/[address]: Pedro capps MD Location: .[place] [address] PCP: Al Winston MD Date of Service: 04/09/22 Order (s): XR chest 2V CPT Code: 91113 Report Number: [id number] Reason for Exam: POST-PACEMAKER EXAMINATION: XR chest 2V CLINICAL INDICATION: Female, 76 years old. POST-PACEMAKER COMPARISON: 04/01/2022 FINDINGS: The cardiomediastinal silhouette is stable unchanged with evidence of remote granulomatous disease. Scarring is present at the left base. There is no focal consolidation, large effusion, pneumothorax, alveolar edema or acute osseous abnormality. The right atrial lead of the pacemaker appears to be in normal position. The right ventricular lead appears to be in the mid RV as opposed to the apex of the RV. IMPRESSION: Right ventricular lead appears to be in the mid RV as opposed to the RV apex. Right atrial lead appears normal. No evidence of pneumothorax. Results transmitted to the communications center for notification. Electronically signed by: Giorgio Wyatt DO 04/09/2022 9:04 AM ADOPTION WORKER Dictated By: Giorgio Wyatt DO 04/09/22 100 Signed By: Giorgio Wyatt MD 04/09/22 100 TD/TT: 04/09/22 100Tech: [id number] cc: ONBOYD; MADELYN* Al Winston MD; Pedro Phelps MD Report Dictated Date/Time Dictated By Status Radiology Report April 21, 2022 12:34am Jared sagastume MD [place] [address] Patient Name: India Tapia Medical Record#: [id number] Address: [address] [place] [address] City/State/Zip: [place] [address]: Irvin Krishna MD Insurance: [facility] Dual Complete FULL /Age/Sex: 1945/76/F Self Pay Admit/Reg Date: 04/20/[address]: Michael Krishna MD Location: ED.[facility]/ PCP: Al Winston MD Date of Service: 04/20/22 Order (s): XR chest 1V portable CPT Code: 32183 Report Number: [id number] Reason for Exam: Chest pain Indication: Chest pain Date of exam:04/20/2022 10:11 PM ADOPTION WORKER Comparison: [04/09/2022] Impression: Portable AP chest radiograph shows no consolidation. No large pleural effusion or pneumothorax. Dual lead pacer. Electronically signed by: Jared Max MD 04/20/2022 11:34 PM ADOPTION WORKER Dictated By: Jared Max MD 04/21/22 003 Signed By: Jared aMx MD 04/21/22 003 TD/TT: 04/21/22 003Tech: [id number] cc: KAPJOHilda; ONIMO* Michael Krishna MD; Al Winston MD Report Dictated Date/Time Dictated By Status Radiology Report April 21, 2022 12:47am Jared sagastume MD completed [address] [address] Patient Name: India Tapia Medical Record#: [id number] Address: [address] [place] [address] City/State/Zip: [place] [address]: Irvin Krishna MD Insurance: [facility] Dual Complete FULL /Age/Sex: 1945//F Self Pay Admit/Reg Date: 04/20/[address]: Michael Krishna MD Location: ED.[facility]/ PCP: Al Winston MD Date of Service: 04/20/22 Order (s): CT angio chest with contrast CPT Code: 96548 Report Number: [id number] Reason for Exam: rule out pe Indication: rule out pe Date of exam:04/20/2022 10:18 PM ADOPTION WORKER PE protocol CTA thorax using 85 mL Omnipaque 350 IV contrast. Sagittal and coronal MIP reformatted images performed on an independent workstation and saved in the permanent record. This exam was performed according to our departmental dose-optimization program which includes automated exposure control, adjustment of the mA and/or kV according to patient size and/or use of iterative reconstruction technique.. Comparison:None Findings: Contrast bolus timing is Adequate. No evidence of central, segmental or gross subsegmental pulmonary artery filling defects. No consolidation, pleural or pericardial effusion or pneumothorax. No enlarged mediastinal or hilar lymph nodes. Thoracic aorta is of normal caliber. The visualized upper abdomen is grossly unremarkable. Pacer device is present. There is some intermediate density material surrounding the pacer which could represent hematoma. Impression: No evidence of pulmonary embolus. Suspected hematoma about the pacer device. Electronically signed by: Jared Max MD 04/20/2022 11:47 PM ADOPTION WORKER Dictated By: Jared Max MD 04/21/22 0047 Signed By: Jared Max MD 04/21/229 TD/TT: 04/21/227Tech: [id number] cc: [email or web address]; ANA LUISA* Michael Krishna MD; Al Winston MD Vital Signs Vital Reading Result Reference Range Collection Date/Time Height 172.72 cm April 09, 2022 3:11pm Weight 86.50 kg April 09, 2022 6:00am Body Temperature 96.4 [degF] 97.6-99.6 April 092022 7:49am Heart Rate 83 /min 60-90 April 09, 2022 4:00pm Respiratory rate 18 /min 12-24 April 092022 7:49am Oxygen saturation by Pulse oximetry 96 % 95-100 April 09, 2022 8:00am BP Systolic 167 mm[Hg] 90-140 April 09, 2022 7:49am BP Diastolic 84 mm[Hg] 60-90 April 09, 2022 7:49am BMI (Body Mass Index) 28.8 kg/m2 2022 5:08pm Height 167.64 cm April 20, 2022 10:52pm Weight 86.18 kg April 20, 2022 10:52pm Body Temperature 98.4 [degF] 97.6-99.6 April 202022 10:52pm Heart Rate 67 /min 60-90 April 21, 2022 12:39am Respiratory rate 16 /min -April 21, 2022 12:39am Oxygen saturation by Pulse oximetry 97 % 95-100 April 21, 2022 12:3 9am BP Systolic 168 mm[Hg] 90-140 April 21, 2022 12:39am BP Diastolic 72 mm[Hg] 60-90 April 21, 2022 12:39am BMI (Body Mass Index) 30.7 kg/m2 2022 10:52pm Advance Directives Advance Directive Response Recorded Date/ Time Advance Directives No March 11:10pm Health Care Proxy No April 20, 2022 11:10pm Advance Directives No March 6:34pm Health Care Proxy No April 02, 2022 5:12pm Insurance Providers Guarantor India Tapia Address [address] [place] [phone] Contact Info. Home Phone: Payer Policy Id Coverage Id Subscriber's Name Subscriber Id Effective Date Expiration Date [employer] Medicare ADV [id number] India Tapia [id number] [facility] Dual Complete FULL [id number] India Tapia [id number] [facility] Medicare [id number] India Tapia [id number] Self Pay Self N/A Encounters Encounter Location(s) Arrival/Admit Date Discharge/Depart Date Provider(s) Discharged Inpatient [facility]-3T - Cardiac April 01, 2022 11:53pm April 09, 2022 6:37pm Salty Blair DO Discharged Recurring [facility]Wound Care (OP) April 16, 2022 12:57pm April 20, 2022 11:59pm George Flor MD Departed Emergency [facility]-Emergency April 20, 2022 10:48pm April 21, 2022 2:39am null Recent Diagnosis Onset Date Bradycardia Leg wound, right Sepsis Severe sepsis Functional Status Observation Response Date Recorded Assistive Devices None April 02, 2022 5:12pm Bathing Type Sponge Bath April 09, 2 023 4:00pm Date of Last Bowel Movement 04/08/22 Febr uary 2022 4:00pm Oral Care Teeth Brushing April 09, 2 023 4:00pm Lip Moisturizer April 09, 2 023 4:00pm Mouth Rinse April 09, 2 023 4:00pm Mental Status Observation Response Date Recorded Arousable To Name April 09, 2 023 8:00am Patient Behavior Appropriate April 09, 2022 8:00am Cooperative April 09, 2 023 8:00am Comprehension Ability Understands Concepts Febru samreen 2022 8:00am Level of Consciousness Awake April 09, 2022 8:00am Alert April 09, 2 023 8:00am Appropriate April 09, 2 023 8:00am Follows Commands April 09, 2022 8:00am Assessments Diagnosis Onset Date Resolution Status Bradycardia acute Leg wound, right acute Sepsis acute Severe sepsis acute Plan of Treatment Future Tests Future scheduled test information is unavailable Pending Tests Test Name Ordered Date Scheduled Date VTE Risk Assessment Medical April 01, 2022 1 1:58pm April 01, 2022 11:58pm VTE Risk Assessment Medical April 02, 2022 12:00am April 02, 2022 12:00am Future Visits Future appointment information is unavailable Referrals to Other Providers Reason for Referral Referral Start Date Provider Provider Contact Information Provider Address Followup with dana razo senior quality assurance specialist. Al Winston MD Work Phone : [phone] [place] [phone] Appointment on Saturday, April 16, 2022 at 9:00 AM [facility] Work Phone: [address] [place] [address] [address] [facility], [address] Al Winston MD Work Phone : [phone] [facility] [address] Pedro Bryant am, MD Work Phone: [address] [place] [address] Future Procedures Procedure Name Ordered Date Scheduled Date EKG ED Electrocardiogram April 20, 2022 11:10pm April 20, 2022 11:15pm Peripheral IV Insert/Manage March 11:10pm April 20, 2022 11:11pm Continuous Pulse Oximetry April 20, 2022 11:10pm April 20, 2022 11:11pm EP Electrophysiology Order March 3:24pm April 08, 2022 3:24pm Hospital Level of Care April 01 11:53pm April 01, 2022 11:53pm Case Management Consult April 02, 2 023 2:38pm April 02, 2022 2:38pm Discharge April 09, 2022 4:21pm April 09, 2022 4:21pm Patient Transfer (from unit to unit) April 08, 2022 4:34pm April 08, 2022 4:34pm Patient Transfer (from unit to unit) April 08, 2022 2:48pm April 08, 2022 2:48pm Wound / Skin Care RN Consult March 11:58pm April 01, 2022 11:58pm Activity April 01, 2022 11:58pm April 01, 2022 11:58pm Activity April 08, 2022 5:44pm April 08, 2022 5:44pm Apply Ice to Affected Area March 5:44pm April 08, 2022 5:44pm Cardiology EP Consult April 04 5:59pm April 04, 2022 5:59pm Signed Consent on Chart April 08 023 3:25pm April 08, 2022 3:25pm Infectious Disease Consult March 1:17am April 02, 2022 1:17am Peripheral IV Insert/Manage April 01, 2022 8 :33pm April 01, 2022 8:33pm Peripheral IV Insert/Manage March 5:44pm April 08, 2022 5:44pm Oxygen Initiate/Maintain April 01 11:58pm April 01, 2022 11:58pm Sepsis Fluid Quality Measure April 022022 12:00am April 02, 2022 12:00am Patient Preference for Pain Management April 01, 2022 11:58pm April 01, 2022 11:58pm Provider Order to Nurse April 08 5:44pm April 08, 2022 5:44pm Continuous Pulse Oximetry April 01, 2022 8:3 3pm April 01, 2022 8:33pm Sequential Compression Device March 242022 12:00am April 02, 2022 12:00am Sequential Compression Device April 012022 11:58pm April 01, 2022 11:58pm Future Medications Future medication information is unavailable Patient Instructions [facility] ED Chest Pain, Uncertain Cau se Goals Acute Goals Absence of falls Including: - Early & often mobilization when appropriate - Passive/active range of motion as appropriate - toileting schedule implementation - implementation of fall risk interventions Bowel elimination within spe c parameter Including: - Baseline bowel fuction resumed - Understands constipation prevention methods - Diet modification & medication management - Toileting schedule if applicable Wound/Skin Integ Progressive ly Improving Including: - Evidence of healing by decrease in size of wounds - No new s/s of infection - daily wound cares to right leg Decrease in sensory misperce ption Including: - Assess for s/s of Hallucinations and Impaired Sensory Perception - Reality Orientation - Diversional Activities - Promote Family Participation Recognize the need for isola tion Describe the mode of transmi ssion Management Strategy - Nutrit ion
--- OUTSIDE RECORDS SUMMARY | 2023-07-28 10:33 | XMS_ITS | Continuity of Care Document ---
Author Name Unknown Address [address] [place] [address] Phone [facility] Address [address] [place] [address] Phone Care Team Providers Care Senior Wealth Advisor Name Role Phone MD Al Winston Primary Care Provider MD George Flor Attending Provider [phone] Chief Complaint and Reason for Visit Chief Complaint wound eval Allergies, Adverse Reactions, Alerts Allergen Type Severity Reaction Last Updated Verified Status Sulfa (Sulfonamide Antibiotics) Adverse Reaction Unknown Unknown April 20, 2022 11:52pm Yes Active Social History Smoking Status Status Start Date End Date Date of Observa tion Former smoker October 06, 2 022 1:14am Observation Status Observation Response Date of Response Lives With Children April 02 6:12pm Living Situation Private Home April 02, 2022 1:19am Other Living Situation trailer April 02, 2022 5:40am Services Prior to Admission None Febr [facility] 2022 6:12pm Living Situation Private Home April 21, [...] Lovastatin Discontin ued 40 MG PO DAILY er 2017 12:00am Februa ry 2022 9:49am Paroxetine Hcl Discontin ued [facility] 12:00am Februa ry 2022 5:14pm Aripiprazole Discontin ued 5 [facility] 12:00am Februa ry 2022 9:49am Prednisone Discontin ued 40 MG PO DAILY 8 October 05, 2021 12:00am October 09, 2021 [...] 1:00am Lisinopril Active 5 MG PO DAILY 2022 1:00am Metoprolol Succinate Active 25 MG PO DAILY 2022 1:00am Aripiprazole Active 5 MG PO DAILY 2022 1:00am Rosuvastatin Active 10 MG PO DAILY 2022 1:00am Levothyroxine Active 25 MCG PO EVERY MORNING 2022 1:00am Paroxetine Hcl Active 50 MG PO DAILY 0 2022 1:00am Doxycycline Hyclate Discontin ued 100 MG PO TWICE A DAY 14 7 2022 1:00am Februa ry 2022 1:34am Immunizations Immunization Event Date Not Given Reason Dose Number Senior It Security Analyst Lot Number Vaccine Information Statement (VIS) Detail Tetanus, Diphtheria, Pertussis (Tdap) April 02, 2022 [id number] Advance Directives Advance Directive Response Recorded Date/ Time Advance Directives No March 7:34pm Health Care Proxy No April 02, 2022 6:12pm Advance Directives No April 21 12:10am Health Care Proxy No April 21 12:10am Insurance Providers Guarantor India Tapia Address [address] [facility] [address] Contact Info. Home Phone: Payer Policy Id Coverage Id Subscriber's Name Subscriber Id Effective Date Expiration Date Humana Medicare ADV [id number] [place] Tapia [id number] [facility] Dual Complete FULL [id number] [place] Tapia [id number] [facility] Medicare [id number] [place] Tapia [id number] Self Pay Self N/A Encounters Encounter Location(s) Arrival/Admit Date Discharge/Depart Date Provider(s) Discharged Recurring [facility] (OP) April 23, 2022 4:50pm May 21, 2022 11:59pm George Flor MD Plan of Treatment Future Tests Future scheduled test information is unavailable Pending Tests Test Name Ordered Date Scheduled Date VTE Risk Assessment Medical April 02, 2022 12:58am April 02, 2022 12:58am VTE Risk Assessment Medical April 02, 2022 1:00am April 02, 2022 1:00am Future Visits Future appointment information is unavailable Referrals to Other Providers Reason for Referral Referral Start Date Provider Provider Contact Information Provider Address Appointment on Saturday, April 16, 2022 at 9:00 AM [facility] Work Phone: [address] [place] [address] [address] [facility], [address] Al Winston MD Work Phone : [address] [facility] [address] Pedro Bryant am, MD Work Phone: [address] [place] [address] Followup with [facility] biomechanical engineer. Al Winston MD Work Phone : [phone] [facility] [address] Future Procedures Procedure Name Ordered Date Scheduled Date Hospital Level of Care April 02, 2022 [...] 12:58am Activity April 02, 2022 12:58am Febr [id number] 12:58am Activity April 08, 2022 6:44pm Febru [...]
--- OUTSIDE RECORDS SUMMARY | 2023-07-28 10:33 | XMS_ITS | Continuity of Care Document ---
Author Name Unknown Address [address] [place] [address] Phone [facility] Address [address] [place] [address] Phone Care Team Providers Care Employee Placement Specialist Name Role Phone Pcp-MD Manpreet Sparrow Primary Care Provider DO Jd Peters Emergency [facility] Care Teams Patient Care Team Team Status: Active Member Role Status Dates Pcp-MD Andrews Primary Care Provider Active Visit Care Team Team Status: Inactive Member Role Status Dates Pcp-MD Andrews Primary Care Provider Active St art: January 28, 2023 End: January 29, 2023 Jd Dowell DO Emergency Provider Active Start: January 28, 2023 End: January 29, 2023 Chief Complaint and Reason for Visit Chief Complaint L arm pain Allergies, Adverse Reactions, Alerts Allergen Type Severity Reaction Last Updated Verified Status Sulfa (Sulfonamide Antibiotics) Adverse Reaction Unknown Unknown January 28, 2023 8:34pm Yes Active Social History Smoking Status Status Start Date End Date Date of Observa tion Unknown if ever smoked Decem 2022 8:26pm Observation Status Date of Observation Not January 28, 2023 Not September 16, 2022 Observation Status Observation Response Date of Response Lives With Children April 02 023 5:12pm Living Situation Private Home April 02, 2022 12:19am Other Living Situation trailer April 02, 2022 4:40am Services Prior to Admission None Febr uary 2022 5:12pm Living Situation Private Home April 20, 2022 11:30pm Living Situation Private Home September 25 4:39pm Additional Data Assigned Sex Female Problems Active Problems Medical Problem Onset Date Status Bradycardia Active Severe sepsis Active Sepsis Active Leg wound, right Active Chest pain Active Colon polyps Active Inactive/Resolved Problems Medical Problem Onset Date Status RSV (respiratory syncytial virus infection) Resolved Chest pain Resolved Hypertension Resolved Fall Resolved Laceration of knee Resolved Medications Medication Status Dose Units Route Directions Qty Days St art Date End Date Instructions Lovastatin Discontin ued 40 MG PO DAILY [facility] er 2017 11:00pm Februa ry 2022 8:49am Paroxetine Hcl Discontin ued 50 MG PO DAILY [facility] [place] 2017 11:00pm Februa 2022 4:14pm Aripiprazole Discontin ued 5 MG PO ONCE [facility] 2017 11:00pm Februa ry 2022 8:49am Prednisone [...] Levothyroxine Active 25 MCG PO EVERY MORNING th, 2023 12:00am Paroxetine Hcl Active 50 MG PO DAILY 0 ua y 2022 12:00am Doxycycline Hyclate Discontin ued 100 MG PO TWICE A DAY 14 7 y 2022 12:00am Februa ry 2022 12:34a m Doxycycline Hyclate Discontin ued 100 MG PO EVERY 12 HOURS 28 14 September 24, 2022 11:00pm October 08, 2022 11:34p m Immunizations Immunization Event Date Not Given Reason Dose Number Mine Promotor Lot Number Vaccine Information Statement (VIS) Detail Tetanus, Diphtheria, Pertussis (Tdap) April 02, 2022 [id number] Tetanus, Diphtheria, Pertussis (Tdap) September 25, 2022 [id number] Procedures Procedure Date Performed Status EKG ED Electrocardiogram January 28, 2023 8:27 pm active XR chest 1V portable January 28, 2023 8:27pm c ompleted Relevant Diagnostic Tests and/or Laboratory Data Laboratory Results Test Date/Time Result Interpretation Reference Range Result Comment Performing Site White Blood Count January 28, 2023 8:56pm 7.57 K/uL 4.30-10.00 [facility] [id number] [address] [facility] [address] Red Blood Count January 28, 2023 8:56pm 4.32 M/uL 3.80-5.00 [facility] [id number] [address] [facility] [address] Hemoglobin January 28, 2023 8:56pm 12.4 gm/dL 12.0-15.0 [facility] [id number] 110 [facility] [address] Hematocrit January 28, 2023 8:56pm 36.2 % 35.0-45.0 [facility] [id number] 110 [facility] [address] Mean Corpuscular Volume January 28, 2023 8:56pm 83.8 fL 85.0-100.0 [facility] [id number] 110 [facility] [address] Mean Corpuscular Hemoglobin January 28, 2023 8:56pm 28.7 pg 27.0-33.0 [facility] [id number] 110 [facility] [address] Mean Corpuscular Hemoglobin Concent January 28, 2023 8:56pm 34.3 gm/dL 32.0-36.0 [facility] [id number] [address] [facility] [address] Red Cell Distribution Width January 28, 2023 8:56pm 12.6 % 11.5-14.5 [facility] [id number] [address] [facility] [address] Platelet Count January 28, 2023 8:56pm 232 K/uL 150-400 [facility] [id number] [address] [facility] [address] Absolute Neutrophil January 28, 2023 8:56pm 3.8 K/uL 2.0-7.0 [facility] [id number] [address] [facility] [address] Immature Granulocyte % (Auto) January 28, 2023 8:56pm 0.1 % 0-1 [facility] [id number] [address] [facility] [address] Neutrophils (%) (Auto) January 28, 2023 8:56pm 50.8 % 45.0-75.0 [facility] [id number] [address] [facility] [address] Lymphocytes (%) (Auto) January 28, 2023 8:56pm 32.5 % 20.0-40.0 [facility] [id number] [address] [facility] [address] Monocytes (%) (Auto) January 28, 2023 8:56pm 11.9 % 1.0-13.1 [facility] [id number] [address] [facility] [address] Eosinophils (%) (Auto) January 28, 2023 8:56pm 4.2 % 0-5 [facility] [id number] [address] [facility] [address] Basophils (%) (Auto) January 28, 2023 8:56pm 0.5 % 0.0-1.0 [facility] [id number] [address] [facility] [address] Nucleated Red Blood Cells January 28, 2023 8:56pm 0.0 /100 WBC 0.0-1.0 [facility] [id number] [address] [facility] [address] Prothrombin Time January 28, 2023 8:56pm 10.6 seconds 9.3-12.1 [facility] [id number] [address] [facility] [address] Prothromb Time International Ratio January 28, 2023 8:56pm 1.0 0.9-1.2 Reference Interval is for non-anticoagul ated patients.Sugge sted INR Therapeutic Range for Vitamin K antogonist therapy:LEVELS OF THERAPY INDICATIONS TARGET INR RANGEStandard Dose Venous Thrombosis, 2.0 - 3.0 Atrial Fibrillation, Pulmonary Embolism. High Dose Valvular Heart Disease, 2.5 - 3.5 Mechanical Heart, Intracardiac Thrombosis. [facility] [id number] [address] [facility] [address] Activated Partial Thromboplast Time January 28, 2023 8:56pm 25.7 seconds 23.9-32.8 [facility] [id number] [address] [facility] [address] Anti-Xa Level January 28, 2023 8:56pm < 0.10 IU/mL 0.30-0.70 [facility] [id number] [address] [facility] [address] Sodium Level January 28, 2023 8:56pm 137 mEq/l 132-146 [facility] [id number] [facility] [address] Potassium Level January 28, 2023 8:56pm 3.9 mEq/L 3.4-5.2 [facility] [id number] [address] [facility] [address] Chloride Level January 28, 2023 8:56pm 105 mEq/L 93-109 [facility] [id number] [address] [facility] [address] Carbon Dioxide Level January 28, 2023 8:56pm 23.0 mEq/L 20.0-32.0 [facility] [id number] [facility] [address] Anion Gap January 28, 2023 8:56pm 9 5-20 [facility] [id number] [address] [facility] [address] Blood Urea Nitrogen January 28, 2023 8:56pm 15 mg/dL 6-22 [facility] [id number] [address] [facility] [address] Creatinine January 28, 2023 8:56pm 0.80 mg/dL 0.50-1.70 [facility] [id number] [address] [facility] [address] Estimated Creatinine Clearance January 28, 2023 8:56pm 64 mL/min This value is calculated by Cockcroft Gault Equation using ideal body weight. This result is dependent on an accurate patient height and weight which is obtained from patients medical record. PratibhaofGama gaminoW. and M.H. Smith. Prediction of creatinine clearance from serum creatinine. Nephron. 1976. 16(1):31-41. [facility] [id number] [address] [facility] [address] Estimat Glomerular Filtration Rate January 28, 2023 8:56pm 75 >90 Reported eGFR is based on the CKD-EPI 2020 equation that does not use a race coefficient. Additional information can be found at:[id number]_ [email or web address] ([email or web address]) [facility] [id number] [address] [facility] [address] BUN/Creatinine Ratio January 28, 2023 8:56pm 19 Ratio 6-20 [facility] [id number] [address] [facility] [address] Glucose Level January 28, 2023 8:56pm 112 mg/dL 68-100 [facility] [id number] [address] [facility] [address] Calculated Osmolality January 28, 2023 8:56pm 275 mOsm/kg 270-290 [facility] [id number] [address] [facility] [address] Calcium Level January 28, 2023 8:56pm 9.1 mg/dL 8.0-10.4 [facility] [id number] [address] [facility] [address] Magnesium Level January 28, 2023 8:56pm 1.8 mg/dL 1.6-2.3 [facility] [id number] [address] [facility] [address] Total Bilirubin January 28, 2023 8:56pm 0.5 mg/dL 0.1-1.2 [facility] [id number] [address] [facility] [address] Aspartate Amino Transf (AST/SGOT) January 28, 2023 8:56pm 22 IU/L 4-44 [facility] [id number] [address] [facility] [address] Alanine Aminotransferase (ALT/SGPT) January 28, 2023 8:56pm 18 IU/L 5-40 [facility] [id number] [address] [facility] [address] Troponin I High Sensitivity January 29, 2023 12:05am 6 ng/L 0-12 Effective Jul 17 2019 - Range:Testing is reported out in ng/L to [...] has not been fully characterized by Vandana Gabby. [facility] [id number] [address] [facility] [address] B-Type Natriuretic Peptide January 28, 2023 8:56pm 197 pg/mL 0-100 [facility] [id number] [address] [facility] [address] Total Protein January 28, 2023 8:56pm 6.8 g/dL 5.6-8.0 [facility] [id number] [address] [facility] [address] Albumin January 28, 2023 8:56pm 4.0 g/dL 3.2-5.2 [facility] [id number] [address] [facility] [address] Globulin January 28, 2023 8:56pm 2.8 g/dL 2.0-3.9 [facility] [id number] [address] [facility] [address] Albumin/Globulin Ratio January 28, 2023 8:56pm 1.4 0.9-1.8 [facility] [id number] [address] [place] [address] Alkaline Phosphatase January 28, 2023 8:56pm 67 U/L 34-128 [facility] [id number] [address] [place] [address] Diagnostic Imaging Reports Author Tony Zaragoza [facility] January 28, 2023 9:49pm Report Date/Time January 28, 2023 9 :52pm [address] [address] Patient Name: India Tapia Medical Record#: [id number] Address: [address] [place] [address] City/State/[place]: [place] [address]: Randee Vasquez MD Insurance: [facility] Dual Complete FULL /Age/Sex: 1945/77/F Self Pay Admit/Reg Date: 01/28/[address]: Ana Serrano NP Location: ED.RH/ PCP: PcpMd MANPREET Santiago Date of Service: 01/28/23 Order (s): XR chest 1V portable CPT Code: 09231 Report Number: [id number] Reason for Exam: Chest pain EXAMINATION: XR chest 1V portable CLINICAL INDICATION: Female, 77 years old. Chest pain COMPARISON: Chest radiograph and CT chest April 20, 2022 FINDINGS: Patient endomorphic body habitus results in beam hardening, limiting the diagnostic sensitivity of the exam. Support Devices: [And cardiac conduction device, unchanged. Heart: The cardiac silhouette is prominent, and unchanged. Mediastinum: Mediastinal contours are normal. Calcified mediastinal lymph nodes. Lungs: Pulmonary vessels are normal in size. Lingular subsegmental atelectasis. Pleura: No pleural effusion is identified. No pneumothorax is present. Osseous Structures: Bilateral shoulder osteoarthritis. IMPRESSION: 1. No acute pulmonary process. Electronically signed by: Tony Zaragoza MD 01/28/2023 8:49 PM [facility] Dictated By: Tony Zaragoza MD 01/28/232 Signed By: Tony Zaragoza MD 01/28/232151 TD/TT: 01/28/232148Tech: [id number] cc: [id number]; PCPNO* Ana Serrano NP; Pcp-Md MANPREET Sparrow Vital Signs Vital Reading Result Reference Range Collection Date/Time Height 167.64 cm January 28, 2 023 8:26pm Weight 86.18 kg January 28, 2 023 8:26pm Body Temperature 98.5 [degF] 97.6-99.6 January 1:47am Heart Rate 85 /min 60-90 January 29, 2 023 1:47am Respiratory rate 16 /min -January 1:47am Oxygen saturation by Pulse oximetry 99 % 95-100 January 29, 2023 1 :47am BP Systolic 109 mm[Hg] 90-140 January 29, 2 023 1:47am BP Diastolic 78 mm[Hg] 60-90 January 29, 2 023 1:47am BMI (Body Mass Index) 30.7 kg/m2 [facility] 2022 8:26pm Advance Directives Advance Directive Response Recorded Date/ Time Advance Directives No March 6:34pm Health Care Proxy No April 02, 2022 5:12pm Advance Directives No March 11:10pm Health Care Proxy No April 20, 2022 11:10pm Advance Directives No September 25, 023 5:19pm Health Care Proxy No September 25 5:19pm Advance Directives No January 28, 2023 8:35pm Health Care Proxy No January 28, 2023 8:35pm Insurance Providers Guarantor India Tapia Address [address] [place] [phone] Contact Info. Home Phone: Payer Policy Id Coverage Id Subscriber's Name Subscriber Id Effective Date Expiration Date [employer] Medicare ADV [id number] [place] Tapia [id number] [facility] Dual Complete FULL [id number] [place] Tapia [id number] [facility] Medicare [id number] [place] Tapia [id number] Self Pay Self N/A Encounters Encounter Location(s) Arrival/Admit Date Discharge/Depart Date Provider(s) Departed Emergency [facility] January 28, 2023 8:24pm January 29, 2023 1:50am null Plan of Treatment Future Tests Future scheduled [...] Saturday, April 16, 2022 at 9:00 AM [facility] Work Phone: [address] [place] [address] 3 [facility], [address] Al Winston MD Work Phone : [address] [place] [address] Pedro Bryant am, MD Work Phone: [address] [place] [address] Followup with [facility] software quality assurance engineer. Al Winston MD Work Phone : [address] [place] [address] Al Winston MD Work Phone : [address] [place] [address] Salty Croft MD Work Phone: [address] [facility] [address] Fanny wilkerson MD Work Phone: [address] [place] [address] Lucie Slaughter MD Work Phone: [address] [address] Pcp-Md MANPREET Sparrow Future Procedures Procedure Name Ordered Date Scheduled Date Hospital Level of Care April 01 11:53pm April 01, 2022 11:53pm Case Management Consult April 02 2 023 2:38pm April 02, 2022 2:38pm [...] 2022 5:59pm Signed Consent on Chart April 08, 2 023 3:25pm April 08, 2022 3:25pm Infectious Disease Consult March 1:17am April 02, 2022 1:17am Peripheral IV Insert/Manage April 01, 2022 8 :33pm April 01, 2022 8:33pm Peripheral IV Insert/Manage March 5:44pm April 08, 2022 5:44pm Oxygen Initiate/Maintain April 01 2 023 11:58pm April 01, 2022 11:58pm Sepsis Fluid Quality Measure April 022022 12:00am April 02, 2022 12:00am Patient Preference for Pain Management April 01, 2022 11:58pm April 01, 2022 11:58pm Provider Order to Nurse April 08, 2 023 5:44pm April 08, 2022 5:44pm Continuous Pulse Oximetry April 01, 2022 8:3 3pm April 01, 2022 8:33pm Sequential Compression Device March [id number] 12:00am April 02, 2022 12:00am Sequential Compression Device April 012022 11:58pm April 01, 2022 11:58pm Peripheral IV Insert/Manage March 11:10pm April 20, 2022 11:11pm Continuous Pulse Oximetry April 20, 2022 11:10pm April 20, 2022 11:11pm EKG ED Electrocardiogram January 28, 2023 8:26 pm January 28, 2023 8:27pm EKG PRN for Chest Pain January 28, 2023 8:26pm January 28, 2023 8:27pm Peripheral IV Insert/Manage January 28, 2023 8 :26pm January 28, 2023 8:27pm Continuous Pulse Oximetry January 28, 2023 8:2 6pm January 28, 2023 8:27pm Future Medications Future medication information is unavailable Patient Instructions [facility] em ED Chest Pain, Uncertain Cau se ED Laceration, Old: Not Sutu red ED Chest Pain, Noncardiac ED Chest Pain, Uncertain Cause Goals Acute Goals Author Authored Date Please read and follow instructions provided. Take [id number] ibuprofen or acetaminophen per the directions on the box for pain. Contact your doctor on the next business day for follow up within 2-3 days. Follow up with referral software quality assurance engineer. If your symptoms progress or worsen, should you develop any new symptoms of conern you should please return to the Emergency Department immediately. Jeremi Russell [facility] January 29, 2023 1:16am
--- OUTSIDE RECORDS SUMMARY | 2023-07-28 10:33 | XMS_ITS | Continuity of Care Document ---
Author Name Unknown Address [address] [place] [address] Phone [facility] System Address [address] [place] [address] Phone Care Team Providers Care Bioprocess Development Engineer Name Role Phone MD Addy Carey Emergency Provider DO Salty Blair Attending Provider MD Gail Ricketts Other Provider MD Al Winston Primary Care Provider MD Pedro Phelps Other Provider Chief Complaint and Reason for Visit Chief Complaint severe sepsis cellul itis Reason for Visit Bradycardia Leg wound, right Sepsis Severe sepsis Allergies, Adverse Reactions, Alerts Allergen Type Severity Reaction Last Updated Verified Status Sulfa (Sulfonamide Antibiotics) Adverse Reaction Unknown Unknown April 01, 2022 8:33pm Yes Active Social History Smoking Status Status Start Date End Date Date of Observa tion Former smoker October 06, 022 1:14am Observation Status Observation Response Date of Response Lives With Children April 02 5:12pm Living Situation Private Home April 02, 2022 12:19am Other Living Situation trailer April 02, 2022 4:40am Services Prior to Admission None Febr ua 2022 5:12pm Additional Data Assigned Sex Female Problems [...] Lovastatin Discontin ued 40 MG PO DAILY [facility] 2017 11:00pm Februa ry 2022 8:49am Paroxetine Hcl Discontin ued 50 MG PO DAILY [facility] 2017 11:00pm Februa ry 2022 4:14pm Aripiprazole Discontin ued 5 MG PO ONCE [facility] 2017 11:00pm Februa ry 2022 8:49am Prednisone [...] Active 50 MG PO DAILY 0 2022 12:00am Doxycycline Hyclate Active 100 MG PO TWICE A DAY 14 7 2022 12:00am Immunizations Immunization Event Date Not Given Reason Dose Number Sample Body Builder Lot Number Vaccine Information Statement (VIS) Detail Tetanus, Diphtheria, Pertussis (Tdap) April 02, 2022 [id number] Procedures Procedure Date Performed Status EKG ED Electrocardiogram April 01, 2022 8:33 [...] completed EKG Electrocardiogram April 09, 2022 5:00am active XR chest 2V April 09, 2022 5:00am compl eted Methicillin-Resist S. Aureus (PCR) completed Blood Culture completed Blood Culture completed Gram Stain completed Superficial Wound Culture comple abhijit Relevant Diagnostic Tests and/or Laboratory Data Laboratory Results Test Date/Time Result Interpretation Reference Range Result Comment Performing Site White Blood Count April 09, 2022 4:20am 8.70 K/uL 4.30-10.00 [facility] [id number] [address] [facility] [address] Red Blood Count April 09, 2022 4:20am 4.09 M/uL 3.80-5.00 [facility] [id number] [address] [facility] [address] Hemoglobin April 09, 2022 4:20am 11.3 gm/dL 12.0-15.0 [facility] [id number] [address] [facility] [address] Hematocrit April 09, 2022 4:20am 36.2 % 35.0-45.0 [facility] [id number] [address] [facility] [address] Mean Corpuscular Volume April 09, 2022 4:20am 88.5 fL 85.0-100.0 [facility] [id number] [address] [facility] [address] Mean Corpuscular Hemoglobin April 09, 2022 4:20am 27.6 pg 27.0-33.0 [facility] [id number] [address] [facility] [address] Mean Corpuscular Hemoglobin Concent April 09, 2022 4:20am 31.2 gm/dL 32.0-36.0 [facility] [id number] [address] [facility] [address] Red Cell Distribution Width April 09, 2022 4:20am 13.0 % 11.5-14.5 [facility] [id number] [address] [facility] [address] Platelet Count April 09, 2022 4:20am 238 K/uL 150-400 [facility] [id number] [address] [facility] [address] Absolute Neutrophil April 09, 2022 4:20am 5.4 K/uL 2.0-7.0 [facility] [id number] [address] [facility] [address] Immature Granulocyte % (Auto) April 09, 2022 4:20am 0.6 % 0-1 [facility] [id number] [address] [facility] [address] Neutrophils (%) (Auto) April 09, 2022 4:20am 62.9 % 45.0-75.0 [facility] [id number] [address] [facility] [address] Lymphocytes (%) (Auto) April 09, 2022 4:20am 21.3 % 20.0-40.0 [facility] [id number] [address] [facility] [address] Monocytes (%) (Auto) April 09, 2022 4:20am 11.4 % 1.0-13.1 [facility] [id number] [address] [facility] [address] Eosinophils (%) (Auto) April 09, 2022 4:20am 3.0 % 0-5 [facility] [id number] [address] [facility] [address] Basophils (%) (Auto) April 09, 2022 4:20am 0.8 % 0.0-1.0 [facility] [id number] [address] [facility] [address] Nucleated Red Blood Cells April 09, 2022 4:20am 0.0 /100 WBC 0.0-1.0 [facility] [id number] [address] [facility] [address] Erythrocyte Sedimentation Rate April 08, 2022 5:14am 27 mm 0-15 [facility] [id number] [address] [facility] [address] Hemoglobin A1c April 01, 2022 8:49pm 5.5 % 4.0-6.0 Interpretation Guidelines: Non-Diabetic: 4.0-6.0 % Good Diabetic Control: 6.0-8.0 % Diabetic Action Suggested: >8.0 % [facility] [id number] [address] [facility] [address] Prothrombin Time April 01, 2022 8:49pm 10.7 seconds 9.3-12.1 [facility] [id number] [address] [place] [address] Prothromb Time International Ratio April 01, 2022 8:49pm 1.0 0.9-1.2 Reference Interval is for non-anticoagulat ed patients.Suggest ed INR Therapeutic Range for Vitamin K antogonist therapy:LEVELS OF THERAPY INDICATIONS TARGET INR RANGEStandard Dose Venous Thrombosis, 2.0 - 3.0 Atrial Fibrillation, Pulmonary Embolism. High Dose Valvular Heart Disease, 2.5 - 3.5 Mechanical Heart, Intracardiac Thrombosis. [facility] [id number] [address] [facility] [address] Activated Partial Thromboplast Time April 01, 2022 8:49pm 25.8 seconds 23.9-32.8 [facility] [id number] [address] [place] [address] Anti-Xa Level April 01, 2022 8:49pm < 0.10 IU/mL 0.30-0.70 [facility] [id number] [address] [facility] [address] Urine Color April 01, 2022 10:52pm Yellow Yellow [facility] [id number] [address] [facility] [address] Urine Clarity April 01, 2022 10:52pm Clear Clear [facility] [id number] [address] [facility] [address] Urine pH April 01, 2022 10:52pm 7.5 5.0-8.0 [facility] [id number] [address] [facility] [address] Urine Specific [place] April 01, 2022 10:52pm <= 1.005 1.005-1.03 0 [facility] [id number] [address] [facility] [address] Urine Blood April 01, 2022 10:52pm Negative mg/dL Negative [facility] [id number] [address] [facility] [address] Urine Protein April 01, 2022 10:52pm Negative mg/dl Negative [facility] [id number] [address] [facility] [address] Urine Glucose (UA) April 01, 2022 10:52pm Negative mg/dL Negative [facility] [id number] [address] [facility] [address] Urine Ketones April 01, 2022 10:52pm Negative mg/dL Negative [facility] [id number] [address] [facility] [address] Urine Nitrate April 01, 2022 10:52pm Negative Negative [facility] [id number] [address] [facility] [address] Urine Bilirubin April 01, 2022 10:52pm Negative mg/dL Negative [facility] [id number] [address] [facility] [address] Urine Urobilinogen April 01, 2022 10:52pm 1.0 E.U./dL 0.2 [facility] [id number] [address] [facility] [address] Urine Leukocyte Esterase April 01, 2022 10:52pm Trace mg/dL Negative [facility] [id number] [address] [facility] [address] Sodium Level April 09, 2022 4:20am 139 mEq/l 132-146 [facility] [id number] [facility] [address] Potassium Level April 09, 2022 4:20am 3.9 mEq/L 3.4-5.2 [facility] [id number] [address] [facility] [address] Chloride Level April 09, 2022 4:20am 106 mEq/L 93-109 [facility] [id number] [address] [facility] [address] Carbon Dioxide Level April 09, 2022 4:20am 25.0 mEq/L 20.0-32.0 [facility] [id number] [address] [facility] [address] Anion Gap April 09, 2022 4:20am 8 5-20 [facility] [id number] [address] [facility] [address] Blood Urea Nitrogen April 09, 2022 4:20am 11 mg/dL 6- [facility] [id number] [address] [facility] [address] Creatinine April 09, 2022 4:20am 0.60 mg/dL 0.50-1.70 [facility] [id number] [address] [facility] [address] Estimated Creatinine Clearance April 09, 2022 4:20am 68 mL/min This value is calculated by Cockcroft Gault Equation using ideal body weight. This result is dependent on an accurate patient height and weight which is obtained from patients medical record. PratibhaofKarlene gamino.W. and M.H. Gault. Prediction of creatinine clearance from serum creatinine. Nephron. 1976. 16(1):31-41. [facility] [id number] [address] [facility] [address] Estimat Glomerular Filtration Rate April 09, 2022 4:20am 92 >90 Reported eGFR is based on the CKD-EPI 2020 equation that does not use a race coefficient. Additional information can be found at:[email or web address] [email or web address] ([email or web address]) [facility] [id number] [address] [facility] [address] BUN/Creatinine Ratio April 09, 2022 4:20am 18 Ratio - [facility] [id number] [address] [facility] [address] Glucose Level April 09, 2022 4:20am 83 mg/dL 68-100 [facility] [id number] [address] [facility] [address] Calculated Osmolality April 09, 2022 4:20am 276 mOsm/kg 270-290 [facility] [id number] [address] [facility] [address] Lactic Acid Level February 13th, 2023 6:54am 1.0 mmo/L 0.5-2.0 [facility] [id number] [address] [facility] [address] Calcium Level April 09, 2022 4:20am 8.4 mg/dL 8.0-10.4 [facility] [id number] [address] [facility] [address] Magnesium Level April 06, 2022 5:36am 2.0 mg/dL 1.6-2.3 [facility] [id number] [address] [facility] [address] Total Bilirubin April 09, 2022 4:20am 0.4 mg/dL 0.1-1.2 [facility] [id number] [address] [facility] [address] Aspartate Amino Transf (AST/SGOT) April 09, 2022 4:20am 39 IU/L 4-44 [facility] [id number] [address] [facility] [address] Alanine Aminotransfera se (ALT/SGPT) April 09, 2022 4:20am 30 IU/L 5-40 [facility] [id number] [address] [facility] [address] Troponin I High Sensitivity April 01, 2022 11:49pm 10 ng/L 0-12 Effective Jul 17 2019 - New Range:Testing is reported out in ng/L to [...] assay has not been fully characterized by [employer]. [facility] [id number] [address] [place] [address] C-Reactive Protein April 08, 2022 5:14am 8.00 mg/L 0.00-9.00 [facility] [id number] [address] [address] C-Reactive Protein High Sensitivity April 01, 2022 8:49pm 47.050 mg/L 0.000-7.48 0 The [place] [employer] states the best evidence to date supports the use of hs-CRP as an independent predictor of increased coronary risk.The defined risk groups are as follows:Low Risk: Less than 1.0 mg/LAverage Risk: 1.0 to 3.0 mg/LHigh Risk: Above 3.0 mg/LIf the hs-CRP level is >10 mg/L, the test should be repeated, and patient examined for sources of infection or inflammation. [facility] [id number] [address] [address] Total Protein April 09, 2022 4:20am 6.0 g/dL 5.6-8.0 [facility] [id number] [address] [place] [address] Albumin April 09, 2022 4:20am 3.4 g/dL 3.2-5.2 [facility] [id number] [address] [place] [address] Globulin April 09, 2022 4:20am 2.6 g/dL 2.0-3.9 [facility] [id number] [address] [place] [address] Albumin/Globul in Ratio April 09, 2022 4:20am 1.3 0.9-1.8 [facility] [id number] [address] [place] [address] Alkaline Phosphatase April 09, 2022 4:20am 67 U/L 34-128 [facility] [id number] [address] [place] [address] Thyroid Stimulating Hormone (Reflex April 04, 2022 5:44am 3.36 uIU/mL 0.340-5.60 0 *ALERT! NEW NORMAL RANGE (0.34-5.6 uIU/mL)The hTSH results should be interpreted in light of the total clinical presentation of the patient, including: symptoms, data from additional tests, and other appropriate information. This assay is not validated for testing serum hTSH levels. [facility] [id number] [address] [place] [address] Procalcitonin April 08, 2022 5:14am < 0.05 [...] confounding clinical factors when evaluating PCT results. [facility] [id number] [address] [address] Vancomycin Level Trough April 08, 2022 5:14am 12.4 ug/mL 10.0-20.0 [facility] [id number] [address] [place] [address] Random Vancomycin Level April 09, 2022 4:20am 6.6 ug/mL [facility] [id number] [address] [place] [address] Microbiology Results Procedure Source Result Collection Date/Time Result Date/Time Result Comment Performing Site Gram Stain Ankle,Rig ht April 02, 2022 4:49pm [facility] [id number] [address] [facility] [address] Superficial Wound Culture Ankle,Rig ht Methicillin Resis Staph Aureus April 06, 2022 12:21pm [facility] [id number] [address] [facility] [address] Ankle,Rig ht Strep pyogenes -group a April 06, 2022 12:21pm [facility] [id number] [address] [facility] [address] Ankle,Rig ht Pseudomonas stutzeri April 06, 2022 12:21pm [facility] [id number] [address] [facility] [address] Methicillin-Re sist S. Aureus (PCR) Nares April 08, 2022 5:57pm [facility] [id number] [address] [facility] [address] Blood Culture Blood NO GROWTH AFTER 5 DAYS April 06, 2022 9:19pm [facility] [id number] [address] [facility] [address] Blood Culture Blood NO GROWTH AFTER 5 DAYS April 06, 2022 9:17pm [facility] [id number] [address] [facility] [address] Diagnostic Imaging Reports Report Dictated Date/Time Dictated By Status Radiology Report April 01, 2022 10:00pm Jared constantino MD completed [place] [id number] Patient Name: India Tapia Medical Record#: [id number] Address: [address] [place] [address] City/State/Zip: [address]: Addy Carey MD Insurance: [facility] Dual Complete FULL /Age/Sex: 1945/76/F Self Pay Admit/Reg Date: 04/01/[address]: Addy vela MD Location: ED.[facility]/ PCP: Fanny Marx MD Date of Service: 04/01/22 Order (s): XR chest 1V portable CPT Code: 79699 Report Number: [id number] Reason for Exam: cp Indication: cp Date of exam:04/01/2022 7:33 PM [employer]ATE Comparison: [10/05/2021] Impression: Portable AP chest radiograph shows no consolidation. No large pleural effusion or pneumothorax. Minimal linear opacity in the mid to lower left lung is present on prior exam as well and likely represents scarring. Electronically signed by: Jared Max MD 04/01/2022 9:00 PM [employer] Dictated By: Jared Max MD 04/01/222199 Signed By: Jared Max MD 04/01/222201 TD/TT: 04/01/222199Tech: [id number] cc: [id number]; ZIONRO* Fanny Marx MD; Addy Carey MD Report Dictated Date/Time Dictated By Status Radiology Report April 02, 2022 12:23am Jared Max MD completed [place] [id number] Patient Name: India Tapia Medical Record#: [id number] Address: [address] [place] [address] City/State/Zip: [place] [address]: Alfredo Blair DO Insurance: [facility] Dual Complete FULL /Age/Sex: 1945/76/F Self Pay Admit/Reg Date: 04/01/[address]: Addy vela MD Location: ED.[place] [address] PCP: Cristina Marx MD Date of Service: 04/01/22 Order (s): XR tibia fibula RT 2V CPT Code: 66986 Report Number: [id number] Reason for Exam: wound Indication: wound Date of exam:04/01/2022 10:28 PM [employer] Impression: 2 views of the right tibia and fibula show No acute fracture or malalignment. No radiopaque foreign body. Electronically signed by: Jared Max MD 04/01/2022 11:23 PM [employer] Dictated By: Jared Max MD 04/02/2222 Signed By: Jared Max MD 04/02/2224 TD/TT: 04/02/2222Tech: [id number] cc: [id number]; JEISON* Fanny Marx MD; Addy Carey MD Report Dictated Date/Time Dictated By Status Radiology Report April 02, 2022 2:02mir Fernandez MD completed [facility] [address] [place] [address] Patient Name: India Tapia Medical Record#: [id number] Address: [address] [place], [place] [address] City/State/Zip: [place] [address]: Alfredo Blair DO Insurance: [facility] Dual Complete FULL /Age/Sex: 1945/76/F Self Pay Admit/Reg Date: 04/01/[address]: Addy vela MD Location: ED.[facility] PCP: Cristina Marx MD Date of Service: 04/02/22 Order (s): CT head/brain wo contrast CPT Code: 05863 Report Number: [id number] Reason for Exam: ams CT HEAD WITHOUT IV CONTRAST COMPARISON: 06/05/2018 COMPLETED DATE: 04/01/2022 11:00 PM [employer]ATE CLINICAL INFORMATION: Patient Age: 76 years Patient [...] by: Fabio Fernandez MD 04/02/2022 1:02 AM [employer] Dictated By: Fabio Fernandez MD 04/02/22201 Signed By: Fabio Fernandez MD 04/02/22204 TD/TT: 04/02/22201Tech: [id number] cc: [email or web address]; HESRO* Fanny Marx MD; Addy Carey MD Report Dictated Date/Time Dictated By Status Radiology Report April 02, 2022 2:14am Jared Max MD completed [place] [address] Patient Name: India Tapia Medical Record#: [id number] Address: [address] [place] [address] City/State/Zip: [place] [address]: Alfredo Blair DO Insurance: [facility] Dual Complete FULL /Age/Sex: 1945/76/F Self Pay Admit/Reg Date: 04/01/[address]: Salty Blair DO Location: ED.[place] [address] PCP: Cristina Marx MD Date of Service: 04/02/22 Order (s): CT elbow LT w contrast CPT Code: 28451 Report Number: [id number] Reason for Exam: Assess for septic arthritis, abscess Indication: Assess for septic arthritis, abscess Date of exam: 04/01/2022 11:00 PM [employer] MATE Exam: CT of the left elbow using [...] by: Jared Max MD 04/02/2022 1:14 AM [facility] Dictated By: Jared Max MD 04/02/22213 Signed By: Jared Max MD 04/02/22216 TD/TT: 04/02/22213Tech: [id number] cc: [id number]; DINRO01* Fanny Marx MD; Salty Blair DO Report Dictated Date/Time Dictated By Status Echocardiogram April 06, 2022 6:43pm Pedro Phelps MD completed [place] [address] Patient Name: India Tapia Medical Record#: [id number] Address: [address] [place] [address] City/State/[place] [address]: Alfredo Blair DO Insurance: [facility] Dual Complete FULL /Age/Sex: 1945/76/F Self Pay Admit/Reg Date: 04/01/[address]: Johnna Coates NP Location: [address] [place] [address] PCP: Al Winston MD Date of Service: 04/05/22 Order (s): Echo TTE cmp w/dop wo contrast CPT Code: 73120 Report Number: [id number] Reason for Exam: bradycardia with AV block Transthoracic Echocardiography Report (TTE) Demographics Patient Name Willie Keyes Gender Female MR Number [id number] Date of 1945 Age 76 year(s) Room Number RL311 Height 68 inches Date of study 04/06/2022 Weight 191.32 pounds Referring MD BSA 2.01 m^2 Interpreting MD Pedro Phelps BMI 29.09 kg/m^2 MD 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 Gabbie Hodges [facility] Conclusions Summary EF Calculated: 70 % Mild [...] Velocity: 99.1 cm/s Peak Gradient: 3.93 mmHg IA ED Velocity: 84.2 cm/s LVOT Peak Velocity: 123 cm/s Mean Velocity: 72.4 cm/s Peak Gradient: 6 mmHg Mean Gradient: 3 mmHg LVOT Diameter: 1.9 cm LVOT VTI: 25.4 cm Signature Dictated By: Pedro Phelps MD 04/06/221842 Signed By: Pedro Phelps MD 04/07/222139 TD/TT: 04/06/221842Tech: [email or web address] cc: [email or web address]; ANA LUISA; CATEPO* Johnna Coates NP; Al Winston MD; Pedro Phelps MD Report Dictated Date/Time Dictated By Status Radiology Report April 09, 2022 10:04am Giorgio Wyatt DO completed [address] [address] Patient Name: India Tapia Medical Record#: [id number] Address: [address] [place] [address] City/State/[place] [address]: Alfredo Blair DO Insurance: [facility] Dual Complete FULL /Age/Sex: 1945/76/F Self Pay Admit/Reg Date: 04/01/[address]: Pedro capps MD [facility] PCP: Al Winston MD Date of Service: 04/09/22 Order (s): XR chest 2V CPT Code: 38289 Report Number: [id number] Reason for Exam: POST-PACEMAKER EXAMINATION: XR chest [...] by: Giorgio Wyatt DO 04/09/2022 9:04 AM [facility] Dictated By: Giorgio Wyatt DO 04/09/22 1004 Signed By: Giorgio Wyatt MD 04/09/22 1006 TD/TT: 04/09/22 1004Tech: [id number] cc: ONIMO; SOMPO* Al Winston MD; Pedro Phelps MD Vital Signs Vital Reading Result Reference [...] 7:49am BMI (Body Mass Index) 28.8 kg/m2 Februa ry 2022 5:08pm Advance Directives Advance Directive Response Recorded Date/ Time Advance Directives No March 6:34pm Health Care Proxy No April 02, 2022 5:12pm Insurance Providers Guarantor India Tapia Address [address] [place] [address] Contact Info. Home Phone: Payer Policy Id Coverage Id Subscriber's Name Subscriber Id Effective Date Expiration Date [employer] Medicare ADV [id number] India Tapia [id number] [facility] Dual Complete FULL [id number] India Tapia [id number] [facility] Medicare [id number] India Tapia [id number] Self Pay Self N/A Encounters Encounter Location(s) Arrival/Admit Date Discharge/Depart Date Provider(s) Discharged [facility]patient [facility] - Cardiac April 01, 2022 11:53pm April 09, 2022 6:37pm Salty Blair DO Recent Diagnosis Onset Date Bradycardia Leg wound, [...] Saturday, April 16, 2022 at 9:00 AM [facility] Work Phone: [address] [place] [address] [address] [facility], [address] Al Winston MD Work Phone : [address] [place] [address] Pedro Bryant am, MD Work Phone: [address] [place] [phone] Future Procedures Procedure Name Ordered Date Scheduled Date EP Electrophysiology Order March 3:24pm April 08, [...] 5:59pm Signed Consent on Chart April 08 2 023 3:25pm April 08, 2022 3:25pm [...] Patient Instructions [employer] Goals Acute Goals Absence of falls Including: [...]
--- OUTSIDE RECORDS SUMMARY | 2023-07-28 10:33 | XMS_ITS | Continuity of Care Document ---
Author Name [facility] Address [address] [place] [address] Organization [facility] Address [address] [place] [address] Care Team Providers Care Site Administrator Name Role Phone Heather Mena Emergency Provider [...] Prednisone 40 MG Oral DAILY 8 4 2021October 09, 2021 Discontinued Benzonatate 100 MG [...] active Relevant Diagnostic Tests and/or Laboratory Data No known relevant diagnostic tests, laboratory data, and/or discharge summary. Advance Directives Advance Directive Response Recorded Date/ Time Advance Directives No March 20 024 7:09pm Health Care Proxy No March 20 24 7:09pm Chief Complaint and Reason for Visit Encounter Admit Date Chief Complaint Reason for V isit Registered Emergency March 20, 2023 6:38pm pacemaker swelling Hospital Discharge Instructions No known hospital discharge instructions. Hospital Discharge Medications Medication Dose Units Route Sig Qty Days Order Date Status Ins tructions Lovastatin 40 MG Oral DAILY 2017 Discontinued Paroxetine Hcl 50 MG Oral DAILY S epte2017 Discontinued Aripiprazole 5 MG Oral ONCE Sep 2017 Discontinued Prednisone 40 MG Oral DAILY 8 4 2021 Discontinued Benzonatate 100 MG Oral THREE [...] 2022 Active Lisinopril 5 MG Oral DAILY Febru samreen 10, 2023 Active Metoprolol Succinate 25 MG Oral DAILY April 02, 2022 Active Aripiprazole 5 MG Oral DAILY Feb ruary 2022 Active Rosuvastatin 10 MG Oral DAILY [place] 2022 Active Levothyroxine 25 MCG Oral EVERY MORNING April 03, 2022 Active Paroxetine Hcl 50 MG Oral DAILY 0 F ebruary 2022 Active Doxycycline Hyclate 100 MG Oral TWICE A DAY 14 7 April 09, 2022 Discontinued Doxycycline Hyclate 100 MG Oral EVERY 12 HOURS 28 14 September 25, 2022 Discontinued Encounters Encounter Facility Location Admit/Visit Date Discharge/Departure Date Attending Provider Registered Emergency [facility] Emergency March 20, 2023 6:38pm Functional Status No known functional status. Immunizations Immunization Name Date Given Type Tetanus, Diphtheria, Pertussis (Tdap) March 242022 Administered Tetanus, Diphtheria, Pertussis (Tdap) September 25, 2022 Administered Plan of Care No Known Plan of Care Information Social History Query Response Date Recorded Comment [...] 024 6:46pm Blood Pressure Systolic 147 90-140 [facility] 2023 6:46pm Blood Pressure Diastolic 77 60-90 [facility] 2023 6:46pm Body Mass Index 30.7 March 20, 2023 6:46pm
--- OUTSIDE RECORDS SUMMARY | 2023-07-28 10:33 | XMS_ITS | Continuity of Care Document ---
Author Name [facility] Address [address] [place] [address] Organization [facility] Address [address] [place] [address] Care Team Providers Care [place] Singer Name Role Phone Heather Mena Emergency Provider Lavon Willis Primary Care Provider [phone] Allergies, Adverse Reactions, Alerts Allergen Type Severity [...] coefficient. Additional information can be found at: [email or web address] ([email or web address]) BUN/Creatinine Ratio March 20, [...] has not been fully characterized by [employer]. Total Protein March 20, 2023 7:50pm 7.1 [...] Emergency March 20, 2023 6:38pm pacemaker [facility] Discharge Instructions No known hospital discharge [...] Parox[facility] Hcl 10 [facility] Active Meloxicam 15 MG Oral DAILY [...] Hcl 50 MG Oral DAILY [facility] Active Doxycycline Hyclate 100 MG Oral TWICE A DAY 14 7 April 09, 2022 Discontinued Doxycycline Hyclate 100 MG Oral EVERY 12 HOURS 28 14 September 25, 2022 Discontinued Encounters Encounter Facility Location Admit/Visit Date Discharge/Departure Date Attending Provider Departed Emergency [facility] Emergency March 20, 2023 6:38pm March [...]
--- OUTSIDE RECORDS SUMMARY | 2023-07-28 10:33 | XMS_ITS | Continuity of Care Document ---
Author Name Unknown Address [address] [place] [address] Phone [facility] Address [address] [place] [address] Phone Support Name Relationship Address Phone Francis Tapia Spouse [address] [place] [address] Gus Jovel Primary Care Provider [address] [place] [address] Katt Cedeno Attending Provider [address] [place] [address] Allergies, Adverse Reactions, Alerts Allergen Type Severity Reaction Last Updated Verified Status Sulfa (Sulfonamide Antibiotics) Adverse Reaction Unknown Unknown November 01, 2017 Yes Active Medications Medication Status Dose Units Route Sig Qty Days Start Date End Date Instructions Lovastatin Active 40 MG Oral DAILY 2017 7:10pm Paroxetine Er Active 50 MG Oral DAILY Oct 7:10pm Aripiprazole Active 5 MG Oral ONCE Oct 7:15pm Problems Active Problems Medical Problem Onset Date Status Colon polyps Active Relevant Diagnostic Tests and/or Laboratory Data Laboratory Results Test Date/Time Result Interpretation Reference Range Result Comment Performing Site White Blood Count May 15, 2019 9:49am 6.52 K/uL 4.30-10.00 [facility] [address] [facility] [address] Red Blood Count May 15, 2019 9:49am 5.01 M/uL 3.80-5.00 [facility], [address] [facility] [address] Hemoglobin May 15, 2019 9:49am 12.7 gm/dL 12.0-15.0 [facility] [address] [facility] [address] Hematocrit May 15, 2019 9:49am 41.3 % 35.0-45.0 [facility], [address] [facility] [address] Mean Corpuscular Volume May 15, 2019 9:49am 82.4 fL 85.0-100.0 [facility], [address] [facility] [address] Mean Corpuscular Hemoglobin May 15, 2019 9:49am 25.3 pg 27.0-33.0 [facility], [address] [place] [address] Mean Corpuscular Hemoglobin Concent May 15, 2019 9:49am 30.8 gm/dl 32.0-36.0 [facility], [address] [place] [address] Red Cell Distribution Width May 15, 2019 9:49am 13.7 % 11.5-14.5 [facility], [address] [place] [address] Platelet Count May 15, 2019 9:49am 279 K/uL 150-400 [facility], [address] [place] [address] Nucleated Red Blood Cells May 15, 2019 9:49am 0.0 /100 WBC 0.0-3.0 [facility], [address] [place] [address] Sodium Level May 15, 2019 9:49am 141 mEq/L 132-146 [facility], [address] [place] [address] Potassium Level May 15, 2019 9:49am 3.9 mEq/L 3.4-5.2 [facility], [address] [place] [address] Chloride Level May 15, 2019 9:49am 106 mEq/L 93-109 [facility], [address] [place] [address] Carbon Dioxide Level May 15, 2019 9:49am 26.0 mEq/L 20.0-35.8 [facility], [address] [place] [address] Anion Gap May 15, 2019 9:49am 9 5-20 [facility], [address] [place] [address] Blood Urea Nitrogen May 15, 2019 9:49am 14 mg/dL 6-22 [facility], [address] [facility] [address] Creatinine May 15, 2019 9:49am 0.7 mg/dL 0.5-1.7 [facility], [address] [facility] [address] Estimated GFR () May 15, 2019 9:49am > 60 [facility], [address] [facility] [address] Estimated GFR (Non- May 15, 2019 9:49am > 60 National Kidney Foundation Guidelines:Inte rpretation of GFR should be based upon values stable for 3 months or more and in relation to clinical history and presenting conditions. This formula is not applicable for patients <18 years of age.GFR: Interpretation: >=60 Normal kidney [id number] Chronic kidney disease with decreased kidney function<=15 Kidney Failure [facility], [address] [place] [address] BUN/Creatinine Ratio May 15, 2019 9:49am 20 Ratio 6-20 [facility], [address] [place] [address] Glucose Level May 15, 2019 9:49am 105 mg/dL 68-100 [facility], [address] [place] [address] Calculated Osmolality May 15, 2019 9:49am 282 mOsm/kg 270-290 [facility], [address] [place] [address] Calcium Level May 15, 2019 9:49am 9.2 mg/dL 8.0-10.4 [facility], [address] [place] [address] Total Bilirubin May 15, 2019 9:49am 0.4 mg/dL 0.1-1.2 [facility], [facility] [address] Aspartate Amino Transf (AST/SGOT) May 15, 2019 9:49am 26 U/L 4-44 [facility], [facility] [address] Alanine Aminotransferase (ALT/SGPT) May 15, 2019 9:49am 21 U/L 5-40 ALT result may vary (falsely depressed or elevated) in patients taking sulfasalazin (Azulfidine) or sulfapyridine medications. [facility], [facility] [address] Total Protein May 15, 2019 9:49am 7.1 gm/dl 5.6-8.0 [facility], [address] [facility] [address] Albumin May 15, 2019 9:49am 4.7 g/dL 3.2-5.2 [facility], [address] [facility] [address] Globulin May 15, 2019 9:49am 2.4 g/dL 2.0-3.9 [facility], [address] [place] [address] Albumin/Globulin Ratio May 15, 2019 9:49am 2.0 0.9-2.2 [facility], [address] [place] [address] Triglycerides Level May 15, 2019 9:49am 226 mg/dL 21-150 [facility], [address] [place] [address] Cholesterol Level May 15, 2019 9:49am 162 mg/dL 100-200 The [place] [employer] desired levels for Cholesterol are less than 200 mg/dL. [facility], [address] [place] [address] LDL Cholesterol, Calculated May 15, 2019 9:49am 71.8 mg/dL 72-100 [facility], [address] [place] [address] HDL Cholesterol May 15, 2019 9:49am 45.0 mg/dL 39.0-60.0 [facility], [facility] [address] Cholesterol/HDL Ratio May 15, 2019 9:49am 3.6 % CHOL/HDL Risk FactorsMales Females3.4 or Less 3.3 or Less =1/2 Average Risk4.97 4.44 =Average Risk9.55 7.05 =Twice Average Risk23.6 11.04 =Three Times Average RiskRisk Factors taken from [place] Studies performed byDr. Sree Caballero. [facility], [address] [facility] [address] Alkaline Phosphatase May 15, 2019 9:49am 96 U/L 34-128 [facility], [address] [place] [address] Thyroid Stimulating Hormone (Reflex May 15, 2019 9:49am 3.83 uIU/mL 0.300-4.50 0 3rd Generation TSHReference range based on recommendation from the [place] [employer] of Clinical Psychiatric Aide s.Studies indicate that results between 3.0 and 4.50 may be associated with subclinical hypothyroidism. Evidence suggests that patients undergoing fluorescein dye angiography can retain small amounts of fluroescein in the body for up to 48 to 72 hours post-treatment. Incases of patients with renal insufficiency, retention could be much longer.Samples containing fluorescein can produce falsely depressed values as low as <0.01 mIU/L. These falsely low values are important when monitoring for thyroid cancer as the physician may determine that adequate suppression of TSH has been obtained. Samples should be resubmitted post fluorescein clearance to ensure there is no interference with TSH3 Ultra test results. [facility], [address] [facility] [address] Vitamin D 1,25-Dihydroxy May 15, 2019 9:49am 60.8 pg/mL Performed at: - [facility] [id number] Director: Jose A Abdul MD, Phone: [phone] [facility] ) [id number] Diagnostic Imaging Reports Report Dictated Date/Time Dictated By Status Radiology Report June 05, 2018 4:19pm Kimberlyn Hall MD [address] [address] Patient Name: India Tapia Medical Record#: [id number] Address: [address] [place] [address] City/State/[place]: [place] [address]: Randee Ying [employer] Insurance: [facility] Medicare /Age/Sex: 1945/72/F Self Pay Admit/Reg Date: 06/05/[address]: Yaa Abdul [facility]N [facility] Gus Jovel MD Date of Service: 06/05/18 Order (s): CT head/brain wo con CPT Code: 45056 Report Number: [id number] Reason for Exam: HEADACHE..CHANGES IN VISION..SPEECH PROBLEM India Tapia [id number] EXAM: CT head/brain wo con COMPARISON: 02/03/2015. INDICATION: Headaches. Vision and speech problem. TECHNIQUE: The axial images through the brain were obtained from the skull base to the vertex at 5 mm slice thickness without IV contrast enhancement. The CT scanners at [facility] are equipped with Automatic Exposure Control Technology to automatically adjust and reduce the amount of r adiation used based on the size, shape and composition of the patient. FINDINGS: Unremarkable calvarium, orbits and the paranasal sinuses. There is no extra-axial fluid collection. Mild brain atrophy is evident. There is no midline shift. Diminished attenuation of the paraventricular white matter consistent with chronic microvascular ischemic changes. There is a small hypodensity in the left insular cortex and the right mesencephalon suggesting chronic lacunar infarct. There is no evidence for a bleed or mass effect. The 4th ventricle is midline. IMPRESSION: BRAIN ATROPHY AND CHRONIC MICROVASCULAR ISCHEMIC CHANGES. 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 THERE IS NO ACUTE INTRACRANIAL ABNORMALITY. Kimberlyn Whitley 06/05/2018 4:19 PM Dictated By: Kimberlyn Whitley MD 06/05/18 1619 Signed By: Kimberlyn Whitley MD 06/05/18 1629 TD/TT: 06/05/18 1619Tech: [id number] cc: Gus Jovel MD; Randee Ying APRN* Chief Complaint and Reason for Visit Chief Complaint PERIPHERAL,HYPERLIPI DEMIA,DEPRESSION,IBS z12.39 Encounters Encounter Location(s) Arrival/Admit Date Discharge/Depart Date Provider(s) Departed [facility]-Cat Scan/CT [facility] June 05, 2018 3:27pm June 05, 2018 3:28pm Randee Ying APRN Departed [facility] May 15, 2019 9:35am May 15, 2019 9:36am Katt Cedeno APRN Departed [facility] May 16, 2019 1:31pm May 16, 2019 1:32pm Katt Cedeno APRN Assessments No Assessments Information Available Functional Status No Functional Status information available Goals Goals may be documented in an alternate section. Mental Status No Mental Status Information Available Medical Equipment No Medical Equipment Information available Insurance Providers Guarantor India Tapia Address [address] [place] [phone] Contact Info. Home Phone: Payer Policy Id Coverage Id Subscriber's Name Subscriber Id Effective Date Expiration Date [employer] [id number] Self Pay Self N/A Social History Smoking Status Status Date of Observation Never smoked tobacco (finding) November 01, 2017 7:18pm Assigned Sex Female
--- OUTSIDE RECORDS SUMMARY | 2023-07-28 10:33 | XMS_ITS | Continuity of Care Document ---
Author Name Unknown Address [address] [place] [address] Phone [facility] Address [address] [place] [address] Phone Care Team Providers Care Warehouse Processor Name Role Phone DO Heather Mena Emergency Provider MD Lavon Willis Primary Care Provider Care Teams Patient Care Team Team Status: Active Member Role Status Dates Lavon Willis MD Primary Care Provider Active Visit Care Team Team Status: Inactive Member Role Status Benny Mena DO Emergency Provider Active Start: March 20, 2023 End: March 20, 2023 Lavon Willis MD Primary Care Provider Active Start: March 20, 2023 End: March 20, 2023 Chief Complaint and Reason for Visit Chief Complaint pacemaker swelling Allergies, Adverse Reactions, Alerts Allergen Type Severity Reaction Last Updated Verified Status Sulfa (Sulfonamide Antibiotics) Adverse Reaction Unknown Unknown March 20, 2023 6:51pm Yes Active Social History Smoking Status Status Start Date End Date Date of Observa tion Unknown if ever smoked Janua 2023 6:50pm Observation Status Date of Observation Not January 28, 2023 Not September 16, 2022 Observation Status Observation Response Date of Response Lives With Family March 20 6:50pm Living Situation Private Home March 20, 6:50pm Living Situation Private Home April 02, 2022 [...] syncytial virus infection) Resolved Chest pain Resolved Chest pain Resolved Hypertension Resolved Fall Resolved Laceration of knee Resolved Medications Medication Status Dose Units Route Directions Qty Days St art Date End Date Instructions Lovastatin Discontin ued 40 MG PO DAILY [facility] 2017 11:00pm Februa ry 2022 8:49am Paroxetine Hcl Discontin ued 50 MG PO DAILY [facility] 2017 11:00pm Februa ry 2022 4:14pm Aripiprazole Discontin ued 5 MG PO ONCE [facility] 2017 11:00pm Februa ry 2022 8:49am Prednisone Discontin ued 40 MG PO DAILY 8 4 October 04, 2021 11:00pm October 08, 2021 [...] 12:00am Lisinopril Active 5 MG PO DAILY r 2022 12:00am Metoprolol Succinate Active 25 MG PO DAILY 2022 12:00am Aripiprazole Active 5 MG PO DAILY ua2022 12:00am Rosuvastatin Active 10 MG PO DAILY Febr uar y 2022 12:00am Levothyroxine Active 25 MCG PO EVERY MORNING y 2022 12:00am Paroxetine Hcl Active 50 MG PO DAILY 0 Februar y 2022 12:00am Doxycycline Hyclate Discontin ued 100 MG PO TWICE A DAY 14 7 uar y 2022 12:00am Februa ry 2022 12:34a m Doxycycline Hyclate Discontin ued 100 MG PO EVERY 12 HOURS 28 14 September 24, 2022 11:00pm October 08, 2022 11:34p m Immunizations Immunization Event Date Not Given Reason Dose Number [employer] Compensation Lot Number Vaccine Information Statement (VIS) Detail Tetanus, Diphtheria, Pertussis (Tdap) April 02, 2022 [id number] Tetanus, Diphtheria, Pertussis (Tdap) September 25, 2022 [id number] Procedures Procedure Date Performed Status EKG ED Electrocardiogram March 20, 2023 6:49 pm active XR chest 1V portable March 20, 2023 6:49pm c ompleted Relevant Diagnostic Tests and/or Laboratory Data Laboratory Results Test Date/Time Result Interpretation Reference Range Result Comment Performing Site White Blood Count March 20, 2023 7:50pm 9.57 K/uL 4.30-10.00 [facility] [id number] [facility] [address] Red Blood Count March 20, 2023 7:50pm 4.34 M/uL 3.80-5.00 [facility] [id number] [facility] [address] Hemoglobin March 20, 2023 7:50pm 12.2 gm/dL 12.0-15.0 [facility] [id number] [facility] [address] Hematocrit March 20, 2023 7:50pm 36.5 % 35.0-45.0 [facility] [id number] [facility] [address] Mean Corpuscular Volume March 20, 2023 7:50pm 84.1 fL 85.0-100.0 [facility] [id number] [facility] [address] Mean Corpuscular Hemoglobin March 20, 2023 7:50pm 28.1 pg 27.0-33.0 [facility] [id number] [address] [facility] [address] Mean Corpuscular Hemoglobin Concent March 20, 2023 7:50pm 33.4 gm/dL 32.0-36.0 [facility] [id number] [address] [facility] [address] Red Cell Distribution Width March 20, 2023 7:50pm 13.1 % 11.5-14.5 [facility] [id number] [address] [facility] [address] Platelet Count March 20, 2023 7:50pm 255 K/uL 150-400 [facility] [id number] [address] [facility] [address] Absolute Neutrophil March 20, 2023 7:50pm 5.4 K/uL 2.0-7.0 [facility] [id number] [address] [facility] [address] Immature Granulocyte % (Auto) March 20, 2023 7:50pm 0.3 % 0-1 [facility] [id number] [address] [facility] [address] Neutrophils (%) (Auto) March 20, 2023 7:50pm 56.1 % 45.0-75.0 [facility] [id number] [address] [facility] [address] Lymphocytes (%) (Auto) March 20, 2023 7:50pm 29.2 % 20.0-40.0 [facility] [id number] [address] [facility] [address] Monocytes (%) (Auto) March 20, 2023 7:50pm 10.2 % 1.0-13.1 [facility] [id number] [address] [facility] [address] Eosinophils (%) (Auto) March 20, 2023 7:50pm 3.7 % 0-5 [facility] [id number] [address] [facility] [address] Basophils (%) (Auto) March 20, 2023 7:50pm 0.5 % 0.0-1.0 [facility] [id number] [address] [facility] [address] Nucleated Red Blood Cells March 20, 2023 7:50pm 0.0 /100 WBC 0.0-1.0 [facility] [id number] [address] [facility] [address] Prothrombin Time March 20, 2023 7:50pm 10.3 seconds 9.3-12.1 [facility] [id number] [address] [facility] [address] Prothromb Time International Ratio March 20, 2023 7:50pm 1.0 0.9-1.2 Reference Interval is for non-anticoagul ated patients.Sugge sted INR Therapeutic Range for Vitamin K antogonist therapy:LEVELS OF THERAPY INDICATIONS TARGET INR RANGEStandard Dose Venous Thrombosis, 2.0 - 3.0 Atrial Fibrillation, Pulmonary Embolism. High Dose Valvular Heart Disease, 2.5 - 3.5 Mechanical Heart, Intracardiac Thrombosis. [facility] [id number] [address] [facility] [address] Activated Partial Thromboplast Time March 20, 2023 7:50pm 26.5 seconds 23.9-32.8 [facility] [id number] [address] [facility] [address] Sodium Level March 20, 2023 7:50pm 138 mEq/l 132-146 [facility] [id number] [address] [facility] [address] Potassium Level March 20, 2023 7:50pm 4.3 mEq/L 3.4-5.2 [facility] [id number] [address] [facility] [address] Chloride Level March 20, 2023 7:50pm 104 mEq/L 93-109 [facility] [id number] [address] [facility] [address] Carbon Dioxide Level March 20, 2023 7:50pm 26.0 mEq/L 20.0-32.0 [facility] [id number] [address] [facility] [address] Anion Gap March 20, 2023 7:50pm 8 5-20 [facility] [id number] [address] [facility] [address] Blood Urea Nitrogen March 20, 2023 7:50pm 15 mg/dL 6-22 [facility] [id number] [address] [facility] [address] Creatinine March 20, 2023 7:50pm 0.80 mg/dL 0.50-1.70 [facility] [id number] [address] [facility] [address] Estimated Creatinine Clearance March 20, 2023 7:50pm 64 mL/min This value is calculated by Cockcroft Gault Equation using ideal body weight. This result is dependent on an accurate patient height and weight which is obtained from patients medical record. Cockcroft, D.W. and M.H. Gault. Prediction of creatinine clearance from serum creatinine. Nephron. 1976. 16(1):31-41. [facility] [id number] [address] [facility] [address] Estimat Glomerular Filtration Rate March 20, 2023 7:50pm 75 >90 Reported eGFR is based on the CKD-EPI 2020 equation that does not use a race coefficient. Additional information can be found at:[id number]_ [email or web address] ([email or web address]) [facility] [id number] [address] [facility] [address] BUN/Creatinine Ratio March 20, 2023 7:50pm 19 Ratio 6-20 [facility] [id number] [facility] [address] Glucose Level March 20, 2023 7:50pm 142 mg/dL 68-100 [facility] [id number] [address] [facility] [address] Calculated Osmolality March 20, 2023 7:50pm 279 mOsm/kg 270-290 [facility] [id number] [address] [facility] [address] Calcium Level March 20, 2023 7:50pm 8.8 mg/dL 8.0-10.4 [facility] [id number] [facility] [address] Magnesium Level March 20, 2023 7:50pm 2.1 mg/dL 1.6-2.3 [facility] [id number] [address] [facility] [address] Total Bilirubin March 20, 2023 7:50pm 0.5 mg/dL 0.1-1.2 [facility] [id number] [address] [facility] [address] Aspartate Amino Transf (AST/SGOT) March 20, 2023 7:50pm 24 IU/L 4-44 [facility] [id number] [address] [facility] [address] Alanine Aminotransferase (ALT/SGPT) March 20, 2023 7:50pm 21 IU/L 5-40 [facility] [id number] [address] [facility] [address] Troponin I High Sensitivity March 20, 2023 [...] has not been fully characterized by Vandana [place]. [facility] [id number] [address] [facility] [address] Total Protein March 20, 2023 7:50pm 7.1 g/dL 5.6-8.0 [facility] [id number] [address] [facility] [address] Albumin March 20, 2023 7:50pm 4.2 g/dL 3.2-5.2 [facility] [id number] [address] [facility] [address] Globulin March 20, 2023 7:50pm 2.9 g/dL 2.0-3.9 [facility] [id number] [address] [facility] [address] Albumin/Globulin Ratio March 20, 2023 7:50pm 1.4 0.9-1.8 [facility] [id number] [address] [place] [address] Alkaline Phosphatase March 20, 2023 7:50pm 66 U/L 34-128 [facility] [id number] [address] [place] [address] Diagnostic Imaging Reports Author David Russell [facility] March 20, 2023 7:39pm Report Date/Time March 20, 2023 7 :42pm [address] [address] Patient Name: India Tapia Medical Record#: [id number] Address: [address] [place] [address] City/State/Zip: [place] [address]: Heather eMna DO Insurance: [facility] Dual Complete FULL /Age/Sex: 1945/77/F Self Pay Admit/Reg Date: 03/20/[address]: Heather flynn DO Location: ED./ PCP: Lavon Willis MD Date of Service: 03/20/23 Order (s): XR chest 1V portable CPT Code: 30722 Report Number: [id number] Reason for Exam: Chest pain EXAM: XR CHEST 1 VIEW DATE: 03/20/2023 5:49 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 There jarrell left chest wall pacemaker. There is mild vascular prominence. There is no infiltrate. There is no effusion. There is no pneumothorax. There is mild cardiomegaly. IMPRESSION: No acute change. 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 Ward Mena DO; Lavon Willis MD Vital Signs Vital Reading Result Reference Range Collection Date/Time Height 167.64 cm March 20 024 6:46pm Weight 86.18 kg March 20 024 6:46pm Body Temperature 99.2 [degF] 97.6-99.6 February 6:46pm Heart Rate 89 /min 60-90 March 20 024 6:46pm Respiratory rate 16 /min 12-24 February 6:46pm Oxygen saturation by Pulse oximetry 94 % 95-100 March 20, 2023 6 :46pm BP Systolic 147 mm[Hg] 90-140 March 20 024 6:46pm BP Diastolic 77 mm[Hg] 60-90 March 20 024 6:46pm BMI (Body Mass Index) 30.7 kg/m2 Barby mars 2023 6:46pm Advance Directives Advance Directive Response Recorded Date/ Time Advance Directives No March 20, 2023 7:09pm Health Care Proxy No March 20, 2023 7:09pm Advance Directives No March 6:34pm Health Care Proxy No April 02, 2022 5:12pm Advance Directives No March 11:10pm Health Care Proxy No April 20, 2022 11:10pm Advance Directives No September 25 023 5:19pm Health Care Proxy No September 25 5:19pm Advance Directives No January 28, 2023 8:35pm Health Care Proxy No January 28, 2023 8:35pm Insurance Providers Guarantor India Tapia Address [address] [place] [id number] Contact Info. Home Phone: Payer Policy Id Coverage Id Subscriber's Name Subscriber Id Effective Date Expiration Date [employer] Medicare ADV [id number] India Tapia [id number] [facility] Dual Complete FULL [id number] India Tapia [id number] [facility] Medicare [id number] India Tapia [id number] Self Pay Self N/A Encounters Encounter Location(s) Arrival/Admit Date Discharge/Depart Date Provider(s) Departed Emergency [facility] March 20, 2023 6:38pm March 20, 2023 10:20pm null Plan of Treatment Future Tests Future [...] Date Provider Provider Contact Information Provider Address Pedro Bryant am, MD Work Phone: [address] [place] [id number] Lavon odell MD Work Phone: [address] [facility] [address] [facility] [address] Appointment on Saturday, April 16, 2022 at 9:00 AM [facility] Work Phone: [address] [place] [address] [address] [facility], [address] Al Winston MD Work Phone : [facility] [address] Pedro Bryant am, MD Work Phone: [address] [place] [phone] Followup with [facility] insurance licensing supervisor. Al Winston MD Work Phone : [facility] [address] Al Winston MD Work Phone : [facility] [address] Salty Croft MD Work Phone: [address] [facility] [address] Fanny wilkerson MD Work Phone: [facility] [address] Lucie Slaughter MD Work Phone: [phone] [address] Pcp-Md MANPREET [place] Future Procedures Procedure Name Ordered Date Scheduled Date EKG ED Electrocardiogram March 20, 2023 6:49 pm March 20, 2023 6:49pm EKG PRN for Chest Pain March 20, 2023 6:49pm March 20, 2023 6:49pm Peripheral IV Insert/Manage March 20, 2023 6 :49pm March 20, 2023 6:49pm Continuous Pulse Oximetry March 20, 2023 6:4 9pm March 20, 2023 6:49pm Hospital Level of Care April 01 11:53pm [...] 2022 11:10pm April 20, 2022 11:11pm EKG PRN for Chest Pain January 28, [...] Pain, Noncardiac ED Chest Pain, Uncertain Cause ED Chest Pain, Uncertain Cau se Goals Acute Goals Author Authored Date Follow-up with your primary care physician, or the referring physician that you were given from the emergency department. Please call on the next business day for an appointment. If your condition changes or worsens at any time please return to the emergency department to be reevaluated. Heather [facility] March 20, 2023 9:50pm
--- OUTSIDE RECORDS SUMMARY | 2023-07-28 10:34 | XMS_ITS | Continuity of Care Document ---
Author Name Unknown Address [address] [place] [address] Phone [facility] Address [address] [place] [address] Phone Care Team Providers Care Territory Representative Name Role Phone Pcp-MD Manpreet Sparrow Primary Care Provider DO Jd Peters Emergency Provider [facility] Care Teams Patient Care Team [...] Lovastatin Discontin ued 40 MG PO DAILY [facility] 2017 11:00pm Februa ry 2022 8:49am Paroxetine Hcl Discontin ued 50 MG PO DAILY [facility] 2017 11:00pm Februa 2022 4:14pm Aripiprazole Discontin ued 5 MG PO ONCE [facility] 2017 11:00pm Februa ry 2022 8:49am Prednisone [...] Event Date Not Given Reason Dose Number [employer] Lot Number Vaccine Information Statement (VIS) Detail Tetanus, Diphtheria, Pertussis (Tdap) April 02, 2022 [id number] Tetanus, Diphtheria, Pertussis (Tdap) September 25, 2022 [id number] Procedures Procedure Date Performed Status EKG ED Electrocardiogram January 28, 2023 8:27 pm active XR chest 1V portable January 28, 2023 8:27pm c ompleted Relevant Diagnostic Tests and/or Laboratory Data Laboratory Results Test Date/Time Result Interpretation Reference Range Result Comment Performing Site White Blood Count January 28, 2023 8:56pm 7.57 K/uL 4.30-10.00 [facility] [id number] [address] [facility] [address] Red Blood Count January 28, 2023 8:56pm 4.32 M/uL 3.80-5.00 [facility] [id number] [address] [facility] [address] Hemoglobin January 28, 2023 8:56pm 12.4 gm/dL 12.0-15.0 [facility] [id number] [address] [facility] [address] Hematocrit January 28, 2023 8:56pm 36.2 % 35.0-45.0 [facility] [id number] [address] [facility] [address] Mean Corpuscular Volume January 28, 2023 8:56pm 83.8 fL 85.0-100.0 [facility] [id number] [address] [facility] [address] Mean Corpuscular Hemoglobin January 28, 2023 8:56pm 28.7 pg 27.0-33.0 [facility] [id number] [address] [facility] [address] Mean Corpuscular Hemoglobin Concent January 28, 2023 8:56pm 34.3 gm/dL 32.0-36.0 [facility] [id number] [address] [facility] [address] Red Cell Distribution Width January 28, 2023 8:56pm 12.6 % 11.5-14.5 [facility] [id number] [address] [facility] [address] Platelet Count January 28, 2023 8:56pm 232 K/uL 150-400 [facility] [id number] [address] [facility] [address] Absolute Neutrophil January 28, 2023 8:56pm 3.8 K/uL 2.0-7.0 [facility] [id number] [address] [facility] [address] Immature Granulocyte % (Auto) January 28, 2023 8:56pm 0.1 % 0-1 [facility] [id number] [address] [facility] [address] Neutrophils (%) (Auto) January 28, 2023 8:56pm 50.8 % 45.0-75.0 [facility] [id number] [address] [facility] [address] Lymphocytes (%) (Auto) January 28, 2023 8:56pm 32.5 % 20.0-40.0 [facility] [id number] [address] [facility] [address] Monocytes (%) (Auto) January 28, 2023 8:56pm 11.9 % 1.0-13.1 [facility] [id number] [address] [facility] [address] Eosinophils (%) (Auto) January 28, 2023 8:56pm 4.2 % 0-5 [facility] [id number] [address] [facility] [address] Basophils (%) (Auto) January 28, 2023 8:56pm 0.5 % 0.0-1.0 [facility] [id number] [address] [facility] [address] Nucleated Red Blood Cells January 28, 2023 8:56pm 0.0 /100 WBC 0.0-1.0 [facility] [id number] [address] [facility] [address] Prothrombin Time January 28, 2023 8:56pm 10.6 seconds 9.3-12.1 [facility] [id number] [address] [facility] [address] Prothromb Time International Ratio January 28, 2023 8:56pm 1.0 0.9-1.2 Reference Interval is for non-anticoagul ated patients.Sugge sted INR Therapeutic Range for Vitamin K antogonist therapy:LEVELS OF THERAPY INDICATIONS TARGET INR RANGEStandard Dose Venous Thrombosis, 2.0 - 3.0 Atrial Fibrillation, Pulmonary Embolism. High Dose Valvular Heart Disease, 2.5 - 3.5 Mechanical Heart, Intracardiac Thrombosis. [facility] [id number] [address] [facility] [address] Activated Partial Thromboplast Time January 28, 2023 8:56pm 25.7 seconds 23.9-32.8 [facility] [id number] [address] [facility] [address] Anti-Xa Level January 28, 2023 8:56pm < 0.10 IU/mL 0.30-0.70 [facility] [id number] [address] [facility] [address] Sodium Level January 28, 2023 8:56pm 137 mEq/l 132-146 [facility] [id number] [address] [facility] [address] Potassium Level January 28, 2023 8:56pm 3.9 mEq/L 3.4-5.2 [facility] [id number] [address] [facility] [address] Chloride Level January 28, 2023 8:56pm 105 mEq/L 93-109 [facility] [id number] [address] [facility] [address] Carbon Dioxide Level January 28, 2023 8:56pm 23.0 mEq/L 20.0-32.0 [facility] [id number] [address] [facility] [address] Anion Gap January 28, 2023 8:56pm 9 5-20 [facility] [id number] [address] [facility] [address] Blood Urea Nitrogen January 28, 2023 8:56pm 15 mg/dL 6-22 [facility] [id number] [address] [facility] [address] Creatinine January 28, 2023 8:56pm 0.80 mg/dL 0.50-1.70 [facility] [id number] [address] [facility] [address] Estimated Creatinine Clearance January 28, 2023 8:56pm 64 mL/min This value is calculated by Cockcroft Gault Equation using ideal body weight. This result is dependent on an accurate patient height and weight which is obtained from patients medical record. PratibhaofGama gaminoW. and [facility]. [employer]. Prediction of creatinine clearance from serum creatinine. Nephron. 1976. 16(1):31-41. [facility] [id number] [address] [facility] [address] Estimat Glomerular Filtration Rate January 28, 2023 8:56pm 75 >90 Reported eGFR is based on the CKD-EPI 2020 equation that does not use a race coefficient. Additional information can be found at:[id number]_ [email or web address] ([email or web address]) [facility] [id number] [address] [facility] [address] BUN/Creatinine Ratio January 28, 2023 8:56pm 19 Ratio 6-20 [facility] [id number] [address] [facility] [address] Glucose Level January 28, 2023 8:56pm 112 mg/dL 68-100 [facility] [id number] [address] [facility] [address] Calculated Osmolality January 28, 2023 8:56pm 275 mOsm/kg 270-290 [facility] [id number] [address] [facility] [address] Calcium Level January 28, 2023 8:56pm 9.1 mg/dL 8.0-10.4 [facility] [id number] [address] [facility] [address] Magnesium Level January 28, 2023 8:56pm 1.8 mg/dL 1.6-2.3 [facility] [id number] [address] [facility] [address] Total Bilirubin January 28, 2023 8:56pm 0.5 mg/dL 0.1-1.2 [facility] [id number] [address] [facility] [address] Aspartate Amino Transf (AST/SGOT) January 28, 2023 8:56pm 22 IU/L 4-44 [facility] [id number] [address] [facility] [address] Alanine Aminotransferase (ALT/SGPT) January 28, 2023 8:56pm 18 IU/L 5-40 [facility] [id number] [address] [facility] [address] Troponin I High Sensitivity January 29, 2023 [...] not been fully characterized by Vandana Gabby. [facility] [id number] [address] [facility] [address] B-Type Natriuretic Peptide January 28, 2023 8:56pm 197 pg/mL 0-100 [facility] [id number] [address] [facility] [address] Total Protein January 28, 2023 8:56pm 6.8 g/dL 5.6-8.0 [facility] [id number] [address] [facility] [address] Albumin January 28, 2023 8:56pm 4.0 g/dL 3.2-5.2 [facility] [id number] [address] [facility] [address] Globulin January 28, 2023 8:56pm 2.8 g/dL 2.0-3.9 [facility] [id number] [address] [facility] [address] Albumin/Globulin Ratio January 28, 2023 8:56pm 1.4 0.9-1.8 [facility] [id number] [address] [place] [address] Alkaline Phosphatase January 28, 2023 8:56pm 67 U/L 34-128 [facility] [id number] [address] [place] [address] Diagnostic Imaging Reports Author Tony Zaragoza [facility] January 28, 2023 9:49pm Report Date/Time January 28, 2023 9 :52pm [address] [address] Patient Name: India Tapia Medical Record#: [id number] Address: [address] [place] [address] City/State/[place]: [place] [address]: Randee Vasquez MD Insurance: [facility] Dual Complete FULL /Age/Sex: 1945/77/F Self Pay Admit/Reg Date: 01/28/[address]: Ana Serrano NP Location: ED.RH/ PCP: PcpMd MANPREET Santiago Date of Service: 01/28/23 Order (s): XR chest 1V portable CPT Code: 68821 Report Number: [id number] Reason for Exam: Chest pain EXAMINATION: XR [...] by: Tony Zaragoza MD 01/28/2023 8:[address] [facility] Dictated By: Tony Zaragoza MD 01/28/231 Signed By: Tony Zaragoza MD 01/28/232151 TD/TT: [...] 1:47am BMI (Body Mass Index) 30.7 kg/m2 [facility] 2022 8:26pm Advance Directives Advance Directive Response [...] 8:35pm Insurance Providers Guarantor India Tapia Address [address] [place] [phone] Contact Info. Home Phone: Payer Policy Id Coverage Id Subscriber's Name Subscriber Id Effective Date Expiration Date [employer] Medicare ADV [id number] India Tapia [id number] [facility] Dual Complete FULL [id number] India Tapia [id number] [facility] Medicare [id number] India Tapia [id number] Self Pay Self N/A Encounters Encounter Location(s) Arrival/Admit Date Discharge/Depart Date Provider(s) Departed Emergency [facility] January 28, 2023 8:24pm January 29, [...] Saturday, April 16, 2022 at 9:00 AM [facility] Work Phone: [address] [place] [address] 3 [facility], [address] Al Winston MD Work Phone : [address] [place] [phone] Pedro Bryant am, MD Work Phone: [address] [place] [phone] Followup with [facility] methods analyst. Al Winston MD Work Phone : [address] [place] [phone] Al Winston MD Work Phone : [address] [place] [phone] Salty Croft MD Work Phone: [address] [facility] [address] Fanny wilkerson MD Work Phone: [address] [place] [phone] Lucie Slaughter MD Work Phone: [address] [address] Pcp-Md MANPREET Sparrow Future Procedures Procedure Name [...] Please read and follow instructions provided. Take xtym-upy-lrxvxju ibuprofen or acetaminophen per the directions on the box for pain. Contact your doctor on the next business day for follow up within 2-3 days. Follow up with referral methods analyst. If your symptoms progress or worsen, should you develop any new symptoms of conern you should please return to the Emergency Department immediately. Jeremi Russell [facility] January 29, 2023 1:16am
--- OUTSIDE RECORDS SUMMARY | 2023-07-28 10:34 | XMS_ITS | Continuity of Care Document ---
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 Name Role Phone DO Isabell Fang Emergency Provider MD Fanny Marx Primary Care Provider Chief Complaint and Reason for Visit Chief Complaint cough htn, headache Allergies, Adverse Reactions, Alerts Allergen Type Severity Reaction Last Updated Verified Status Sulfa (Sulfonamide Antibiotics) Adverse Reaction Unknown Unknown October 06, 2021 1:14am Yes Active Social History Smoking Status Status Start Date End Date Date of Observa tion Ex-smoker (finding) September 212021 1:14am Observation Status Observation Response Date of Response Living Situation Private Home October 06 1:56am Living Situation Private Home October 05 12:35am Additional Data Assigned Sex Female Problems Active Problems Medical Problem Onset Date Status RSV (respiratory syncytial virus infection) Active Hypertension Active Colon polyps Active Medications Medication Status Dose Units Route Directions Qty Days Start Cruz e End Date Instructions Lovastatin Active 40 MG PO DAILY 2017 12:00am Paroxetine Hcl Active 50 MG PO DAILY November 01, 2017 12:00am Aripiprazole Active 5 MG PO ONCE Oct 12:00am Prednisone Active 40 MG PO DAILY 8 4 October 05, 2021 12:00am Benzonatate Active 100 MG PO THREE TI MES A DAY October 05, 2021 12:00am Procedures Procedure Date Performed Status EKG ED Electrocardiogram October 06, 2021 1:52a m active EKG ED Electrocardiogram October 05, 2021 12:39 am completed XR chest 1V portable October 05, 2021 12:40am c ompleted SARS-CoV-2, Influenza & RSV (PCR) completed Relevant Diagnostic Tests and/or Laboratory Data Laboratory Results Test Date/Time Result Interpretation Reference Range Result Comment Performing Site White Blood Count October 05, 2021 12:55am 8.61 K/uL 4.30-10.00 [facility] [address] [facility] [address] White Blood Count October 06, 2021 2:30am 14.62 K/uL 4.30-10.00 [facility] [address] [facility] [address] Red Blood Count October 05, 2021 12:55am 4.70 M/uL 3.80-5.00 [facility] [address] [facility] [address] Red Blood Count October 06, 2021 2:30am 4.63 M/uL 3.80-5.00 [facility] [address] [facility] [address] Hemoglobin October 05, 2021 12:55am 12.9 gm/dL 12.0-15.0 [facility] [address] [facility] [address] Hemoglobin October 06, 2021 2:30am 12.7 gm/dL 12.0-15.0 [facility] [address] [facility] [address] Hematocrit October 05, 2021 12:55am 39.2 % 35.0-45.0 [facility] [address] [facility] [address] Hematocrit October 06, 2021 2:30am 38.2 % 35.0-45.0 [facility] [address] [facility] [address] Mean Corpuscular Volume October 05, 2021 12:55am 83.4 fL 85.0-100.0 [facility] [address] Mean Corpuscular Volume October 06, 2021 2:30am 82.5 fL 85.0-100.0 [facility] [address] [facility] [address] Mean Corpuscular Hemoglobin October 05, 2021 12:55am 27.4 pg 27.0-33.0 [facility] [address] [facility] [address] Mean Corpuscular Hemoglobin October 06, 2021 2:30am 27.4 pg 27.0-33.0 [facility] [address] [facility] [address] Mean Corpuscular Hemoglobin Concent October 05, 2021 12:55am 32.9 gm/dL 32.0-36.0 [facility] [address] [facility] [address] Mean Corpuscular Hemoglobin Concent October 06, 2021 2:30am 33.2 gm/dL 32.0-36.0 [facility] [address] [facility] [address] Red Cell Distribution Width October 05, 2021 12:55am 13.2 % 11.5-14.5 [facility] [address] [facility] [address] Red Cell Distribution Width October 06, 2021 2:30am 13.4 % 11.5-14.5 [facility] [address] [facility] [address] Platelet Count October 05, 2021 12:55am 249 K/uL 150-400 [facility] [address] [facility] [address] Platelet Count October 06, 2021 2:30am 278 K/uL 150-400 [facility] [address] [facility] [address] Absolute Neutrophil October 05, 2021 12:55am 4.4 K/uL 2.0-7.[address] [address] Absolute Neutrophil October 06, 2021 2:30am 11.8 K/uL 2.0-7.0 [facility] [address] [facility] [address] Immature Granulocyte % (Auto) October 05, 2021 12:55am 0.3 % 0-[address] [address] Immature Granulocyte % (Auto) October 06, 2021 2:30am 0.4 % 0-[address] [address] Neutrophils (%) (Auto) October 05, 2021 12:55am 51.5 % 45.0-75.0 [facility] [address] [facility] [address] Neutrophils (%) (Auto) October 06, 2021 2:30am 81.7 % 45.0-75.0 [facility] [address] [facility] [address] Lymphocytes (%) (Auto) October 05, 2021 12:55am 33.2 % 20.0-40.0 [facility] [address] [facility] [address] Lymphocytes (%) (Auto) October 06, 2021 2:30am 9.9 % 20.0-40.0 [facility] [address] [facility] [address] Monocytes (%) (Auto) October 05, 2021 12:55am 11.7 % 1.0-13.1 [facility] [address] [facility] [address] Monocytes (%) (Auto) October 06, 2021 2:30am 7.9 % 1.0-13.[address] [address] Eosinophils (%) (Auto) October 05, 2021 12:55am 2.8 % 0-5 [facility] [address] [facility] [address] Eosinophils (%) (Auto) October 06, 2021 2:30am 0.0 % 0-[address] [address] Basophils (%) (Auto) October 05, 2021 12:55am 0.5 % 0.0-1.[address] [address] Basophils (%) (Auto) October 06, 2021 2:30am 0.1 % 0.0-1.0 [facility] [address] [facility] [address] Nucleated Red Blood Cells October 05, 2021 12:55am 0.0 /100 WBC 0.0-1.[address] [address] Nucleated Red Blood Cells October 06, 2021 2:30am 0.0 /100 WBC 0.0-1.0 [facility] [address] [facility] [address] Prothrombin Time October 05, 2021 12:55am 10.4 seconds 9.3-12.1 [facility] [address] [facility] [address] Prothromb Time International Ratio October 05, 2021 12:55am 1.0 0.9-1.2 Reference Interval is for non-anticoagul ated patients. Suggested INR Therapeutic Range for Vitamin K antogonist therapy: LEVELS OF THERAPY INDICATIONS TARGET INR RANGE Standard Dose Venous Thrombosis, 2.0 - 3.0 Atrial Fibrillation, Pulmonary Embolism. High Dose Valvular Heart Disease, 2.5 - 3.5 Mechanical Heart, Intracardiac Thrombosis. [facility] [address] [facility] [address] Activated Partial Thromboplast Time October 05, 2021 12:55am 25.1 seconds 23.9-32.8 [facility] [address] [facility] [address] Sodium Level October 05, 2021 12:55am 136 mEq/l 132-146 [facility] [address] [facility] [address] Sodium Level October 06, 2021 2:30am 134 mEq/l 132-146 [facility] [address] [facility] [address] Potassium Level October 05, 2021 12:55am 3.8 mEq/L 3.4-5.2 [facility] [address] [facility] [address] Potassium Level October 06, 2021 2:30am 3.5 mEq/L 3.4-5.2 [facility] [address] [facility] [address] Chloride Level October 05, 2021 12:55am 103 mEq/L 93-109 [facility] [address] [facility] [address] Chloride Level October 06, 2021 2:30am 99 mEq/L 93-109 [facility] [address] [facility] [address] Carbon Dioxide Level October 05, 2021 12:55am 27.0 mEq/L 20.0-32.0 [facility] [address] [facility] [address] Carbon Dioxide Level October 06, 2021 2:30am 24.0 mEq/L 20.0-32.0 [facility] [address] [facility] [address] Anion Gap October 05, 2021 12:55am 6 5-20 [facility] [address] [facility] [address] Anion Gap October 06, 2021 2:30am 11 5-20 [facility] [address] [facility] [address] Blood Urea Nitrogen October 05, 2021 12:55am 12 mg/dL 08-12 [facility] [address] [facility] [address] Blood Urea Nitrogen October 06, 2021 2:30am 16 mg/dL 08-12 [facility] [address] [facility] [address] Creatinine October 05, 2021 12:55am 0.80 mg/dL 0.50-1.70 [facility] [address] [facility] [address] Creatinine October 06, 2021 2:30am 0.70 mg/dL 0.50-1.70 [facility] [address] [facility] [address] Estimated Creatinine Clearance October 05, 2021 12:55am 68 mL/min This value is calculated by Cockcroft Gault Equation using ideal body weight. This result is dependent on an accurate patient height and weight which is obtained from patients medical record. Cockcroft, D.W. and M.H. Gault. Prediction of creatinine clearance from serum creatinine. Nephron. 1975. 16(1):31-41. [facility] [address] [facility] [address] Estimated Creatinine Clearance October 06, 2021 2:30am 68 mL/min This value is calculated by Cockcroft Gault Equation using ideal body weight. This result is dependent on an accurate patient height and weight which is obtained from patients medical record. Cockcroft, D.W. and M.H. Gault. Prediction of creatinine clearance from serum creatinine. Nephron. 1975. 16(1):31-41. [facility] [address] [facility] [address] Estimated GFR () October 05, 2021 12:55am > 60 >=60 [facility] [address] [facility] [address] Estimated GFR () October 06, 2021 2:30am > 60 >=60 [facility] [address] [facility] [address] Estimated GFR (Non- October 05, 2021 12:55am > 60 >=60 National Kidney Foundation Guidelines: Interpretation of GFR should be based upon values stable for 3 months or more and in relation to clinical history and presenting conditions. This formula is not applicable for patients <18 years of age. GFR: Interpretation : >=60 Normal kidney function 16-59 Chronic kidney disease with decreased kidney function <=15 Kidney Failure [facility] [address] [facility] [address] Estimated GFR (Non- October 06, 2021 2:30am > 60 >=60 National Kidney Foundation Guidelines: Interpretation of GFR should be based upon values stable for 3 months or more and in relation to clinical history and presenting conditions. This formula is not applicable for patients <18 years of age. GFR: Interpretation : >=60 Normal kidney function 16-59 Chronic kidney disease with decreased kidney function <=15 Kidney Failure [facility] [address] [facility] [address] BUN/Creatinine Ratio October 05, 2021 12:55am 15 Ratio 6-20 [facility] [address] [facility] [address] BUN/Creatinine Ratio October 06, 2021 2:30am 23 Ratio 6-20 [facility] [address] [facility] [address] Glucose Level October 05, 2021 12:55am 104 mg/dL 68-100 [facility] [address] [facility] [address] Glucose Level October 06, 2021 2:30am 183 mg/dL 68-100 [facility] [address] [facility] [address] Calculated Osmolality October 05, 2021 12:55am 272 mOsm/kg 270-290 [facility] [address] [facility] [address] Calculated Osmolality October 06, 2021 2:30am 274 mOsm/kg 270-290 [facility] [address] [facility] [address] Calcium Level October 05, 2021 12:55am 9.3 mg/dL 8.0-10.4 [facility] [address] [facility] [address] Calcium Level October 06, 2021 2:30am 9.3 mg/dL 8.0-10.4 [facility] [address] [facility] [address] Magnesium Level October 05, 2021 12:55am 1.9 mg/dL 1.6-2.3 [facility] [address] [facility] [address] Total Bilirubin October 05, 2021 12:55am 0.6 mg/dL 0.1-1.2 [facility] [address] [facility] [address] Total Bilirubin October 06, 2021 2:30am 0.5 mg/dL 0.1-1.2 [facility] [address] [facility] [address] Aspartate Amino Transf (AST/SGOT) October 05, 2021 12:55am 25 IU/L -44 [facility] [address] [facility] [address] Aspartate Amino Transf (AST/SGOT) October 06, 2021 2:30am 27 IU/L -44 [facility] [address] [facility] [address] Alanine Aminotransferase (ALT/SGPT) October 05, 2021 12:55am 20 IU/L 5-40 [facility] [address] [facility] [address] Alanine Aminotransferase (ALT/SGPT) October 06, 2021 2:30am 20 IU/L 5-40 [facility] [address] [place] [address] Troponin I High Sensitivity October 05, 2021 2:10am 9 ng/L 0-12 Effective Jul 17 2019 - [...] medical judgement. In addition, a delta of 20 points (rise) between any 2 troponin values will be considered suspicious of, but not diagnostic for myocardial necrosis and require close clinical correlation, using best medical judgement. Clinicians must consider a patient's signs, symptoms, history and results with other diagnostic tests when interpreting high sensitivity Troponin assays because the performance for this assay has not been fully characterized by [facility]. [facility] [address] [facility] [address] B-Type Natriuretic Peptide October 05, 2021 12:55am 69 pg/mL 0-100 [facility] [address] [facility] [address] Total Protein October 05, 2021 12:55am 7.2 g/dL 5.6-8.0 [facility] [address] [facility] [address] Total Protein October 06, 2021 2:30am 7.6 g/dL 5.6-8.0 [facility] [address] [facility] [address] Albumin October 05, 2021 12:55am 4.2 g/dL 3.2-5.[address] [address] Albumin October 06, 2021 2:30am 4.4 g/dL 3.2-5.[address] [address] Globulin October 05, 2021 12:55am 3.0 g/dL 2.0-3.[address] [address] Globulin October 06, 2021 2:30am 3.2 g/dL 2.0-3.[address] [address] Albumin/Globulin Ratio October 05, 2021 12:55am 1.4 0.9-1.[address] [address] Albumin/Globulin Ratio October 06, 2021 2:30am 1.4 0.9-1.8 [place] 7170855 Alkaline Phosphatase October 05, 2021 12:55am 71 U/L 34-[address] [address] Alkaline Phosphatase October 06, 2021 2:30am 66 U/L 34-[address] [address] Microbiology Results Procedure Source Result Collection Date/Time Result Date/Time Result Comment Performing Site SARS-CoV-2, Influenza & RSV (PCR) Nares October 05, 2021 1:57am [facility] [address] [place] [address] Diagnostic Imaging Reports Report Dictated Date/Time Dictated By Status Radiology Report October 05, 2021 1:12am Fabio Fernandez MD completed [address] [address] Patient Name: India Tapia Medical Record#: [id number] Address: [address] [place] [address] City/State/[place] [address]: Meena Fang DO Insurance: [facility] Dual Complete FULL /Age/Sex: 1945/76/F Self Pay Admit/Reg Date: 10/05/[address]: Isabell adair DO Location: ED.RH/ PCP: Fanny Marx MD Date of Service: 10/05/21 Order (s): XR chest 1V portable CPT Code: 80547 Report Number: [id number] Reason for Exam: Dyspnea XR chest 1V portable COMPARISON: 03/07/2013 COMPLETED DATE: 10/04/2021 11:40 PM CDT CLINICAL INFORMATION: Patient Age: 76 years Patient Gender: Female Clinical Information: Dyspnea TECHNIQUE: 1 view of the chest FINDINGS: The cardiomediastinal silhouette appears within normal limits. The pulmonary vascular markings appear within normal limits. There is tortuosity of the aorta. The lungs are adequately expanded. There is persistent linear scarring noted at the left mid to lower lung field. There is no significant pleural effusion identified by frontal only projection. There is no discernible pneumothorax identified. There are no suspicious regional osseous or soft tissue findings identified. IMPRESSION: 1. No acute cardiopulmonary disease. Electronically signed by: Fabio Fernandez MD 10/05/2021 12:12 AM CDT Dictated By: Fabio Fernandez MD 10/05/21111 Signed By: Fabio Fernandez MD 10/05/21 0114 TD/TT: 10/05/21111Tech: [id number] cc: [id number]; [id number]* Fanny Marx MD; Isabell Fang DO Vital Signs Vital Reading Result Reference Range Collection Date/Time Height 172.72 cm October 05 12:35am Weight 86.18 kg October 05 12:35am Body Temperature 98 [degF] 97.6-99.6 September 4:16am Heart Rate 88 /min 60-90 October 05 4:16am Respiratory rate 18 /min -September 4:16am Oxygen saturation by Pulse oximetry 96 % 95-100 October 05, 2021 4: 16am BP Systolic 150 mm[Hg] 90-140 October 05 4:16am BP Diastolic 83 mm[Hg] 60-90 October 05 4:16am BMI (Body Mass Index) 28.9 kg/m2 October 05, 2021 12:35am Height 172.72 cm October 06 1:14am Weight 86.18 kg October 06 1:14am Body Temperature 98.6 [degF] 97.6-99.6 September 3:18am Heart Rate 87 /min 60-90 October 06 4:23am Respiratory rate 20 /min -September 4:23am Oxygen saturation by Pulse oximetry 96 % 95-100 October 06, 2021 4: 23am BP Systolic 167 mm[Hg] 90-140 October 06 4:23am BP Diastolic 78 mm[Hg] 60-90 October 06 4:23am BMI (Body Mass Index) 28.9 kg/m2 October 06, 2021 1:14am Advance Directives Advance Directive Response Recorded Date/ Time Advance Directives No October 06, 2021 2:05am Health Care Proxy No October 06, 2 022 2:05am Advance Directives No October 05, 2021 1:03am Health Care Proxy No October 05, 2 022 1:03am Insurance Providers Guarantor India Tapia Address [address] [place] [phone] Contact Info. Home Phone: Payer Policy Id Coverage Id Subscriber's Name Subscriber Id Effective Date Expiration Date [employer] ADV [id number] India Tapia [id number] [facility] Dual Complete FULL [id number] India Tapia [id number] [facility] Medicare [id number] India Tapia [id number] Self Pay Self N/A Encounters Encounter Location(s) Arrival/Admit Date Discharge/Depart Date Provider(s) Departed Emergency [facility] October 05, 2021 12:30am October 05, 2021 4:23am null Departed Emergency [facility] October 06, 2021 1:08am October 06, 2021 4:25am null Plan of Treatment Future Tests Future scheduled test information is unavailable Pending Tests Pending diagnostic test information is unavailable Future Visits Future appointment information is unavailable Referrals to Other Providers Reason for Referral Referral Start Date Provider Provider Contact Information Provider Address Fanny Marx MD Work Phone: [address] [facility] [address] [facility] AIsaías Durand Work Phone : [address] [facility] [address] Olivia Douglass MD Work Phone: [phone] [facility] [address] [facility] [address] Fanny Marx MD Work Phone: [address] [facility] [address] Irena Koo MD Work Phone: [address] [facility] [address] Lizeth Rivera MD Work Phone: [address] [facility] [address] Future Procedures Procedure Name Scheduled Date EKG ED Electrocardiogram October 06 1:52am Peripheral IV Insert/Manage October 06, 2021 1:52am Peripheral IV Insert/Manage October 05, 2021 12:39am Future Medications Future medication information is unavailable Patient Instructions ED RSV Infection (Bronchioli tis) ED Hypertension, To Be Confi rmed Goals Acute Goals Please follow-up with your [facility] care doctor Please follow-up with a [facility]. You have been given the name of multiple primary care physicians. Please call the office and set up an appointment for follow-up after evaluation in the emergency department.
--- OUTSIDE RECORDS SUMMARY | 2023-07-28 10:34 | XMS_ITS | Continuity of Care Document ---
Author Name Unknown Address [address] [place] [address] Phone [facility] Address [address] [place] [address] Phone Care Team Providers Care Investigator Cash Shortage Name Role Phone MD Addy Careyformerly named [facility] Provider DO Salty Blair Attending Provider [phone] MD Gail Ricketts Other Provider MD [facility] [phone] MD Pedro Phelps Other Provider MD George Flor Attending Provider [phone] MD Erendira [place] Emergency Provider Chief Complaint and Reason for [...] Lovastatin Discontin ued 40 MG PO DAILY [facility] [place] 11:00pm Februa ry 2022 8:49am Paroxetine Hcl Discontin ued 50 MG PO DAILY [facility] [place] [place] 11:00pm Februa ry 2022 4:14pm Aripiprazole Discontin ued 5 MG PO ONCE [facility] [place] [place] 11:00pm Februa ry 2022 8:49am [...] Event Date Not Given Reason Dose Number Investigator Cash Shortage Lot Number Vaccine Information Statement (VIS) Detail Tetanus, Diphtheria, Pertussis (Tdap) April 02, 2022 [id number] Procedures Procedure Date Performed Status CT angio [...] April 09, 2022 4:20am 8.70 K/uL 4.30-10.00 [facility] [id number] [address] [place] [address] White Blood Count April 20, 2022 11:19pm 7.89 K/uL 4.30-10.00 [facility] [id number] [address] [place] [address] Red Blood Count April 09, 2022 4:20am 4.09 M/uL 3.80-5.00 [facility] [id number] [address] [facility] [address] Red Blood Count April 20, 2022 11:19pm 4.15 M/uL 3.80-5.00 [facility] [id number] [address] [facility] [address] Hemoglobin April 09, 2022 4:20am 11.3 gm/dL 12.0-15.0 [facility] [id number] [address] [facility] [address] Hemoglobin April 20, 2022 11:19pm 11.5 gm/dL 12.0-15.0 [facility] [id number] [address] [facility] [address] Hematocrit April 09, 2022 4:20am 36.2 % 35.0-45.0 [facility] [id number] [address] [facility] [address] Hematocrit April 20, 2022 11:19pm 35.1 % 35.0-45.0 [facility] [id number] [address] [facility] [address] Mean Corpuscular Volume April 09, 2022 4:20am 88.5 fL 85.0-100.0 [facility] [id number] [address] [facility] [address] Mean Corpuscular Volume April 20, 2022 11:19pm 84.6 fL 85.0-100.0 [facility] [id number] [address] [facility] [address] Mean Corpuscular Hemoglobin April 09, 2022 4:20am 27.6 pg 27.0-33.0 [facility] [id number] [address] [facility] [address] Mean Corpuscular Hemoglobin April 20, 2022 11:19pm 27.7 pg 27.0-33.0 [facility] [id number] [address] [facility] [address] Mean Corpuscular Hemoglobin Concent April 09, 2022 4:20am 31.2 gm/dL 32.0-36.0 [facility] [id number] [address] [facility] [address] Mean Corpuscular Hemoglobin Concent April 20, 2022 11:19pm 32.8 gm/dL 32.0-36.0 [facility] [id number] [address] [facility] [address] Red Cell Distribution Width April 09, 2022 4:20am 13.0 % 11.5-14.5 [facility] [id number] [address] [facility] [address] Red Cell Distribution Width April 20, 2022 11:19pm 13.7 % 11.5-14.5 [facility] [id number] [address] [facility] [address] Platelet Count April 09, 2022 4:20am 238 K/uL 150-400 [facility] [id number] [address] [facility] [address] Platelet Count April 20, 2022 11:19pm 246 K/uL 150-400 [facility] [id number] [address] [facility] [address] Absolute Neutrophil April 09, 2022 4:20am 5.4 K/uL 2.0-7.0 [facility] [id number] [address] [facility] [address] Absolute Neutrophil April 20, 2022 11:19pm 4.0 K/uL 2.0-7.0 [facility] [id number] [address] [facility] [address] Immature Granulocyte % (Auto) April 09, 2022 4:20am 0.6 % 0-1 [facility] [id number] [address] [facility] [address] Immature Granulocyte % (Auto) April 20, 2022 11:19pm 0.3 % 0-1 [facility] [id number] [address] [facility] [address] Neutrophils (%) (Auto) April 09, 2022 4:20am 62.9 % 45.0-75.0 [facility] [id number] [address] [facility] [address] Neutrophils (%) (Auto) April 20, 2022 11:19pm 51.9 % 45.0-75.0 [facility] [id number] [address] [facility] [address] Lymphocytes (%) (Auto) April 09, 2022 4:20am 21.3 % 20.0-40.0 [facility] [id number] [address] [facility] [address] Lymphocytes (%) (Auto) April 20, 2022 11:19pm 32.4 % 20.0-40.0 [facility] [id number] [address] [facility] [address] Monocytes (%) (Auto) April 09, 2022 4:20am 11.4 % 1.0-13.1 [facility] [id number] [address] [facility] [address] Monocytes (%) (Auto) April 20, 2022 11:19pm 11.3 % 1.0-13.1 [facility] [id number] [address] [facility] [address] Eosinophils (%) (Auto) April 09, 2022 4:20am 3.0 % 0-5 [facility] [id number] [address] [facility] [address] Eosinophils (%) (Auto) April 20, 2022 11:19pm 3.5 % 0-5 [facility] [id number] [address] [facility] [address] Basophils (%) (Auto) April 09, 2022 4:20am 0.8 % 0.0-1.0 [facility] [id number] [address] [facility] [address] Basophils (%) (Auto) April 20, 2022 11:19pm 0.6 % 0.0-1.0 [facility] [id number] [address] [facility] [address] Nucleated Red Blood Cells April 09, 2022 4:20am 0.0 /100 WBC 0.0-1.0 [facility] [id number] [address] [facility] [address] Nucleated Red Blood Cells April 20, 2022 11:19pm 0.0 /100 WBC 0.0-1.0 [facility] [id number] [address] [facility] [address] Erythrocyte Sedimentation Rate April 08, 2022 5:14am 27 mm 0-15 [facility] [id number] [address] [facility] [address] Hemoglobin A1c April 01, 2022 8:49pm 5.5 % 4.0-6.0 Interpretation Guidelines: Non-Diabetic: 4.0-6.0 % Good Diabetic Control: 6.0-8.0 % Diabetic Action Suggested: >8.0 % [facility] [id number] [address] [facility] [address] Prothrombin Time April 01, 2022 8:49pm 10.7 seconds 9.3-12.1 [facility] [id number] [address] [facility] [address] Prothromb Time International Ratio April 01, 2022 8:49pm 1.0 0.9-1.2 Reference Interval is for non-anticoagulat ed patients.Suggest ed INR Therapeutic Range for Vitamin K antogonist therapy:LEVELS OF THERAPY INDICATIONS TARGET INR RANGEStandard Dose Venous Thrombosis, 2.0 - 3.0 Atrial Fibrillation, Pulmonary Embolism. High Dose Valvular Heart Disease, 2.5 - 3.5 Mechanical Heart, Intracardiac Thrombosis. [facility] [id number] [address] [facility] [address] Activated Partial Thromboplast Time April 01, 2022 8:49pm 25.8 seconds 23.9-32.8 [facility] [id number] [address] [place] [address] Anti-Xa Level April 01, 2022 8:49pm < 0.10 IU/mL 0.30-0.70 [facility] [id number] [address] [place] [address] Urine Color April 01, 2022 10:52pm Yellow Yellow [facility] [id number] [address] [facility] [address] Urine Clarity April 01, 2022 10:52pm Clear Clear [facility] [id number] [address] [facility] [address] Urine pH April 01, 2022 10:52pm 7.5 5.0-8.0 [facility] [id number] [address] [facility] [address] Urine Specific [place] April 01, 2022 10:52pm <= 1.005 1.005-1.03 0 [facility] [id number] [address] [place] [address] Urine Blood April 01, 2022 10:52pm Negative mg/dL Negative [facility] [id number] [address] [facility] [address] Urine Protein April 01, 2022 10:52pm Negative mg/dl Negative [facility] [id number] [address] [facility] [address] Urine Glucose (UA) April 01, 2022 10:52pm Negative mg/dL Negative [facility] [id number] [address] [facility] [address] Urine Ketones April 01, 2022 10:52pm Negative mg/dL Negative [facility] [id number] [address] [facility] [address] Urine Nitrate April 01, 2022 10:52pm Negative Negative [facility] [id number] [address] [facility] [address] Urine Bilirubin April 01, 2022 10:52pm Negative mg/dL Negative [facility] [id number] [address] [facility] [address] Urine Urobilinogen April 01, 2022 10:52pm 1.0 E.U./dL 0.2 [facility] [id number] [address] [facility] [address] Urine Leukocyte Esterase April 01, 2022 10:52pm Trace mg/dL Negative [facility] [id number] [address] [facility] [address] Sodium Level April 09, 2022 4:20am 139 mEq/l 132-146 [facility] [id number] [address] [facility] [address] Sodium Level April 20, 2022 11:19pm 136 mEq/l 132-146 [facility] [id number] [address] [facility] [address] Potassium Level April 09, 2022 4:20am 3.9 mEq/L 3.4-5.2 [facility] [id number] [address] [facility] [address] Potassium Level April 20, 2022 11:19pm 3.6 mEq/L 3.4-5.2 [facility] [id number] [address] [facility] [address] Chloride Level April 09, 2022 4:20am 106 mEq/L 93-109 [facility] [id number] [address] [facility] [address] Chloride Level April 20, 2022 11:19pm 100 mEq/L 93-109 [facility] [id number] [address] [facility] [address] Carbon Dioxide Level April 09, 2022 4:20am 25.0 mEq/L 20.0-32.0 [facility] [id number] [address] [facility] [address] Carbon Dioxide Level April 20, 2022 11:19pm 27.0 mEq/L 20.0-32.0 [facility] [id number] [address] [facility] [address] Anion Gap April 09, 2022 4:20am 8 5-20 [facility] [id number] [address] [facility] [address] Anion Gap April 20, 2022 11:19pm 9 5-20 [facility] [id number] [address] [facility] [address] Blood Urea Nitrogen April 09, 2022 4:20am 11 mg/dL 08-12 [facility] [id number] [address] [facility] [address] Blood Urea Nitrogen April 20, 2022 11:19pm 14 mg/dL 08-12 [facility] [id number] [address] [facility] [address] Creatinine April 09, 2022 4:20am 0.60 mg/dL 0.50-1.70 [facility] [id number] [address] [facility] [address] Creatinine April 20, 2022 11:19pm 0.70 mg/dL 0.50-1.70 [facility] [id number] [address] [facility] [address] Estimated Creatinine Clearance April 09, 2022 4:20am 68 mL/min This value is calculated by Cockcroft Gault Equation using ideal body weight. This result is dependent on an accurate patient height and weight which is obtained from patients medical record. Iris Gallagher. and M.H. Gatravis. Prediction of creatinine clearance from serum creatinine. Nephron. 1976. 16(1):31-41. [facility] [id number] [address] [facility] [address] Estimated Creatinine Clearance April 20, 2022 11:19pm 65 mL/min This value is calculated by Cockcroft Gault Equation using ideal body weight. This result is dependent on an accurate patient height and weight which is obtained from patients medical record. Gama GallagherW. and M.HIsaías Mtz. Prediction of creatinine clearance from serum creatinine. Nephron. 1976. 16(1):31-41. [facility] [id number] [address] [facility] [address] Estimat Glomerular Filtration Rate April 09, 2022 4:20am 92 >90 Reported eGFR is based on the CKD-EPI 2020 equation that does not use a race coefficient. Additional information can be found at:[email or web address]_f [email or web address] ([email or web address]) [facility] [id number] [address] [facility] [address] Estimat Glomerular Filtration Rate April 20, 2022 11:19pm 89 >90 Reported eGFR is based on the CKD-EPI 2020 equation that does not use a race coefficient. Additional information can be found at:[email or web address]_[email or web address]_f [email or web address] ([email or web address]) [facility] [id number] [address] [facility] [address] BUN/Creatinine Ratio April 09, 2022 4:20am 18 Ratio 6-20 [facility] [id number] [address] [facility] [address] BUN/Creatinine Ratio April 20, 2022 11:19pm 20 Ratio 6-20 [facility] [id number] [address] [facility] [address] Glucose Level April 09, 2022 4:20am 83 mg/dL 68-100 [facility] [id number] [address] [facility] [address] Glucose Level April 20, 2022 11:19pm 91 mg/dL 68-100 [facility] [id number] [address] [facility] [address] Calculated Osmolality April 09, 2022 4:20am 276 mOsm/kg 270-290 [facility] [id number] [address] [facility] [address] Calculated Osmolality April 20, 2022 11:19pm 272 mOsm/kg 270-290 [facility] [id number] [address] [facility] [address] Lactic Acid Level April 05, 2022 6:54am 1.0 mmo/L 0.5-2.0 [facility] [id number] [address] [facility] [address] Calcium Level April 09, 2022 4:20am 8.4 mg/dL 8.0-10.4 [facility] [id number] [address] [facility] [address] Calcium Level April 20, 2022 11:19pm 9.3 mg/dL 8.0-10.4 [facility] [id number] [address] [facility] [address] Magnesium Level April 06, 2022 5:36am 2.0 mg/dL 1.6-2.3 [facility] [id number] [address] [facility] [address] Total Bilirubin April 09, 2022 4:20am 0.4 mg/dL 0.1-1.2 [facility] [id number] [address] [facility] [address] Total Bilirubin April 20, 2022 11:19pm 0.6 mg/dL 0.1-1.2 [facility] [id number] [address] [facility] [address] Aspartate Amino Transf (AST/SGOT) April 09, 2022 4:20am 39 IU/L 4-44 [facility] [id number] [address] [facility] [address] Aspartate Amino Transf (AST/SGOT) April 20, 2022 11:19pm 20 IU/L 4-44 [facility] [id number] [address] [facility] [address] Alanine Aminotransfera se (ALT/SGPT) April 09, 2022 4:20am 30 IU/L 5-40 [facility] [id number] [address] [facility] [address] Alanine Aminotransfera se (ALT/SGPT) April 20, 2022 11:19pm 17 IU/L 5-40 [facility] [id number] [address] [place] [address] Troponin I High Sensitivity April 01, 2022 [...] assay has not been fully characterized by [facility]. [facility] [id number] [address] [place] [address] Troponin I High Sensitivity April 21, 2022 [...] assay has not been fully characterized by [facility]. [facility] [id number] [address] [facility] [address] C-Reactive Protein April 08, 2022 5:14am 8.00 mg/L 0.00-9.00 [facility] [id number] [address] [facility] [address] C-Reactive Protein High Sensitivity April 01, 2022 8:49pm 47.050 mg/L 0.000-7.48 0 The [place] [employer] states the best evidence to date supports the use of hs-CRP as an independent predictor of increased coronary risk.The defined risk groups are as follows:Low Risk: Less than 1.0 mg/LAverage Risk: 1.0 to 3.0 mg/LHigh Risk: Above 3.0 mg/LIf the hs-CRP level is >10 mg/L, the test should be repeated, and patient examined for sources of infection or inflammation. [facility] [id number] [address] [facility] [address] Total Protein April 09, 2022 4:20am 6.0 g/dL 5.6-8.0 [facility] [id number] 110 [facility] [address] Total Protein April 20, 2022 11:19pm 6.9 g/dL 5.6-8.0 [facility] [id number] [address] [facility] [address] Albumin April 09, 2022 4:20am 3.4 g/dL 3.2-5.2 [facility] [id number] [address] [facility] [address] Albumin April 20, 2022 11:19pm 4.1 g/dL 3.2-5.2 [facility] [id number] [address] [facility] [address] Globulin April 09, 2022 4:20am 2.6 g/dL 2.0-3.9 [facility] [id number] [address] [facility] [address] Globulin April 20, 2022 11:19pm 2.8 g/dL 2.0-3.9 [facility] [id number] [address] [facility] [address] Albumin/Globul in Ratio April 09, 2022 4:20am 1.3 0.9-1.8 [facility] [id number] [address] [facility] [address] Albumin/Globul in Ratio April 20, 2022 11:19pm 1.5 0.9-1.8 [facility] [id number] [address] [facility] [address] Alkaline Phosphatase April 09, 2022 4:20am 67 U/L 34-128 [facility] [id number] [address] [facility] [address] Alkaline Phosphatase April 20, 2022 11:19pm 70 U/L 34-128 [facility] [id number] [address] [facility] [address] Thyroid Stimulating Hormone (Reflex April 04, 2022 5:44am 3.36 uIU/mL 0.340-5.60 0 *ALERT! NEW NORMAL RANGE (0.34-5.6 uIU/mL)The hTSH results should be interpreted in light of the total clinical presentation of the patient, including: symptoms, data from additional tests, and other appropriate information. This assay is not validated for testing serum hTSH levels. [facility] [id number] [address] [facility] [address] Procalcitonin April 08, 2022 5:14am < 0.05 [...] confounding clinical factors when evaluating PCT results. [facility] [id number] [address] [facility] [address] Vancomycin Level Trough April 08, 2022 5:14am 12.4 ug/mL 10.0-20.0 [facility] [id number] [address] [place] [address] Random Vancomycin Level April 09, 2022 4:20am 6.6 ug/mL [facility] [id number] [address] [place] [address] Microbiology Results Procedure Source Result Collection Date/Time Result Date/Time Result Comment Performing Site Gram Stain Ankle,Rig ht April 02, 2022 4:49pm [facility] [id number] [address] [facility] [address] Superficial Wound Culture Ankle,Rig ht Methicillin Resis Staph Aureus April 06, 2022 12:21pm [facility] [id number] [address] [place] [address] Ankle,Rig ht Strep pyogenes -group a April 06, 2022 12:21pm [facility] [id number] [address] [place] [address] Ankle,Rig ht Pseudomonas stutzeri April 06, 2022 12:21pm [facility] [id number] [address] [place] [address] Methicillin-Re sist S. Aureus (PCR) Nares April 08, 2022 5:57pm [facility] [id number] [address] [place] [address] Blood Culture Blood NO GROWTH AFTER 5 DAYS April 06, 2022 9:19pm [facility] [id number] [address] [place] [address] Blood Culture Blood NO GROWTH AFTER 5 DAYS April 06, 2022 9:17pm [facility] [id number] [address] [place] [address] Diagnostic Imaging Reports Report Dictated Date/Time Dictated By Status Radiology Report April 01, 2022 10:00pm Jared constantino MD completed [address] [address] Patient Name: India Tapia Medical Record#: [id number] Address: [address] [place] [address] City/State/[place]: [place] [address]: Addy Carey MD Insurance: [facility] Dual Complete FULL /Age/Sex: 1945/F Self Pay Admit/Reg Date: 04/01/[address]: Addy vela MD Location: ED./ PCP: Fanny Marx MD Date of Service: 04/01/22 Order (s): XR chest 1V portable CPT Code: 99390 Report Number: [id number] Reason for Exam: cp Indication: cp Date of exam:04/01/2022 7:33 PM COMMERCIAL FOOD INSTRUCTOR Comparison: [10/05/2021] Impression: Portable AP chest radiograph shows no consolidation. No large pleural effusion or pneumothorax. Minimal linear opacity in the mid to lower left lung is present on prior exam as well and likely represents scarring. Electronically signed by: Jared Max MD 04/01/2022 9:00 PM COMMERCIAL FOOD INSTRUCTOR Dictated By: Jared Max MD 04/01/222199 Signed By: Jared Max MD 04/01/222201 TD/TT: 04/01/222199Tech: [id number] cc: [id number]; JEISON* Fanny Marx MD; Addy Carey MD Report Dictated Date/Time Dictated By Status Radiology Report April 02, 2022 12:23am Jared Max MD completed [place] [id number] Patient Name: India Tapia Medical Record#: [id number] Address: [address] [place] [address] City/State/Zip: [place] [address]: Alfredo Blair DO Insurance: [facility] Dual Complete FULL /Age/Sex: 1945/F Self Pay Admit/Reg Date: 04/01/[address]: Addy vela MD Location: ED.[facility].RL-08 PCP: Cristina Marx MD Date of Service: 04/01/22 Order (s): XR tibia fibula RT 2V CPT Code: 58827 Report Number: [id number] Reason for Exam: wound Indication: wound Date of exam:04/01/2022 10:28 PM COMMERCIAL FOOD INSTRUCTOR Impression: 2 views of the right tibia and fibula show No acute fracture or malalignment. No radiopaque foreign body. Electronically signed by: Jared Max MD 04/01/2022 11:23 PM COMMERCIAL FOOD INSTRUCTOR Dictated By: Jared Max MD 04/02/2222 Signed By: Jared Max MD 04/02/2224 TD/TT: 04/02/2222Tech: [id number] cc: [id number]; HESRO* Fanny Marx MD; Addy Carey MD Report Dictated Date/Time Dictated By Status Radiology Report April 02, 2022 2:02am Fabio Fernandez MD completed [place] [address] Patient Name: India Tapia Medical Record#: [id number] Address: [address] [place] [address] City/State/Zip: [place] [id number]: Alfredo Blair DO Insurance: [facility] Dual Complete FULL /Age/Sex: 1945/76/F Self Pay Admit/Reg Date: 04/01/[address]: Addy vela MD [facility] PCP: Cristina Marx MD Date of Service: 04/02/22 Order (s): CT head/brain wo contrast CPT Code: 95906 Report Number: [id number] Reason for Exam: ams CT HEAD WITHOUT IV CONTRAST COMPARISON: 06/05/2018 COMPLETED DATE: 04/01/2022 11:00 PM COMMERCIAL FOOD INSTRUCTOR CLINICAL INFORMATION: Patient Age: 76 years Patient [...] by: Fabio Fernandez MD 04/02/2022 1:02 AM COMMERCIAL FOOD INSTRUCTOR Dictated By: Fabio Fernandez MD 04/02/22201 Signed By: Fabio Fernandez MD 04/02/22204 TD/TT: 04/02/22201Tech: [id number] cc: [id number]; ZIONRO* Fanny Marx MD; Addy Carey MD Report Dictated Date/Time Dictated By Status Radiology Report April 02, 2022 2:14am Jared Max MD completed [address] [address] Patient Name: India Tapia Medical Record#: [id number] Address: [address] [place] [address] City/State/Zip: [place] [address]: Alfredo Blair DO Insurance: [facility] Dual Complete FULL /Age/Sex: 1945/76/F Self Pay Admit/Reg Date: 04/01/[address]: Salty Blair DO Location: ED.[place] [address] PCP: Cristina Marx MD Date of Service: 04/02/22 Order (s): CT elbow LT w contrast CPT Code: 89424 Report Number: [id number] Reason for Exam: Assess for septic arthritis, abscess Indication: Assess for septic arthritis, abscess Date of exam: 04/01/2022 11:00 PM COMMERCIAL FOOD INSTRUCTOR Exam: CT of the left elbow using [...] by: Jared Max MD 04/02/2022 1:14 AM COMMERCIAL FOOD INSTRUCTOR Dictated By: Jared Mxa MD 04/02/22213 Signed By: Jared Max MD 04/02/22216 TD/TT: 04/02/22213Tech: [id number] cc: [id number]; DINRO01* Fanny Marx MD; Salty Blair DO Report Dictated Date/Time Dictated By Status Echocardiogram April 06, 2022 6:43pm Pedro Phelps MD completed [address] [address] Patient Name: India Tapia Medical Record#: [id number] Address: [address] [place] [address] City/State/Zip: [place] [address]: Alfredo Blair DO Insurance: [facility] Dual Complete FULL /Age/Sex: 1945/76/F Self Pay Admit/Reg Date: 04/01/[address]: Johnna Coates NP Location: .[place] [id number] PCP: Al Winston MD Date of Service: 04/05/22 Order (s): Echo TTE cmp w/dop wo contrast CPT Code: 91670 Report Number: [id number] Reason for Exam: bradycardia with AV block Transthoracic Echocardiography Report (TTE) Demographics Patient Name Willie Keyes Gender Female MR Number [id number] Date of 1945 Age 76 year(s) Room Number RL311 Height 68 inches Date of study 04/06/2022 Weight 191.32 pounds Referring MD BSA 2.01 m^2 Interpreting MD Pedro Phelps BMI 29.09 kg/m^2 MD Fellow Spiral Runner Gabbie Hodges [facility] Conclusions Summary EF Calculated: [...] Velocity: 99.1 cm/s Peak Gradient: 3.93 mmHg NM ED Velocity: 84.2 cm/s LVOT Peak Velocity: [...] 09, 2022 10:04am Giorgio Wyatt DO completed [place] [id number] Patient Name: India Tapia Medical Record#: [id number] Address: [address] [place] [address] City/State/Zip: [place] [address]: Alfredo Blair DO Insurance: [facility] Dual Complete FULL /Age/Sex: 1945/76/F Self Pay Admit/Reg Date: 04/01/[address]: Pedro capps MD Location: [place] [address] PCP: Al Winston MD Date of Service: 04/09/22 Order (s): XR chest 2V CPT Code: 30390 Report Number: [id number] Reason for Exam: POST-PACEMAKER EXAMINATION: XR chest [...] by: Giorgio Wyatt DO 04/09/2022 9:04 AM COMMERCIAL FOOD INSTRUCTOR Dictated By: Giorgio Wyatt DO 04/09/22 100 Signed By: Giorgio [place] MD 04/09/22 100 TD/TT: 04/09/22 100Tech: [id number] cc: ONBOYD; MADELYN* Al Winston MD; Pedro Phelps MD Report Dictated Date/Time Dictated By Status Radiology Report April 21, 2022 12:34am Jared sagastume MD [place] [address] Patient Name: India Tapia Medical Record#: [id number] Address: [address] [place] [address] City/State/Zip: [place] [address]: Irvin Krishna MD Insurance: [facility] Dual Complete FULL /Age/Sex: 1945/76/F Self Pay Admit/Reg Date: 04/20/[address]: Michael Krishna MD Location: ED.[facility]/ PCP: Al Winston MD Date of Service: 04/20/22 Order (s): XR chest 1V portable CPT Code: 29432 Report Number: [id number] Reason for Exam: Chest pain Indication: Chest pain Date of exam:04/20/2022 10:11 PM COMMERCIAL FOOD INSTRUCTOR Comparison: [04/09/2022] Impression: Portable AP chest radiograph shows no consolidation. No large pleural effusion or pneumothorax. Dual lead pacer. Electronically signed by: Jared Max MD 04/20/2022 11:34 PM COMMERCIAL FOOD INSTRUCTOR Dictated By: Jared Max MD 04/21/22 003 Signed By: Jared Max MD 04/21/22 003 TD/TT: 04/21/22 003Tech: [id number] cc: [email or web address]; ONIMO* Michael Krishna MD; Al Winston MD Report Dictated Date/Time Dictated By Status Radiology Report April 21, 2022 12:47am Jared sagastume MD completed [address] [address] Patient Name: India Tapia Medical Record#: [id number] Address: [address] [place] [address] City/State/Zip: [place] [address]: [place] Krishna MD Insurance: [facility] Dual Complete FULL /Age/Sex: 1945//F Self Pay Admit/Reg Date: 04/20/[address]: Michael Krishna MD Location: ED.[facility]/ PCP: Al Winston MD Date of Service: 04/20/22 Order (s): CT angio chest with contrast CPT Code: 92378 Report Number: [id number] Reason for Exam: rule out pe Indication: rule out pe Date of exam:04/20/2022 10:18 PM COMMERCIAL FOOD INSTRUCTOR PE protocol CTA thorax using 85 mL [...] by: Jared Max MD 04/20/2022 11:47 PM COMMERCIAL FOOD INSTRUCTOR Dictated By: Jared Max MD 04/21/22 0047 [...] 5:12pm Insurance Providers Guarantor India Tapia Address [address] [place] [address] Contact Info. Home Phone: Payer Policy Id Coverage Id Subscriber's Name Subscriber Id Effective Date Expiration Date [employer] Medicare ADV [id number] India Tapia [id number] [facility] Dual Complete FULL [id number] India Tapia [id number] [facility] Medicare [id number] India Tapia [id number] Self Pay Self N/A Encounters Encounter Location(s) Arrival/Admit Date Discharge/Depart Date Provider(s) Discharged Inpatient [facility] - Cardiac April 01, 2022 11:53pm April 09, 2022 6:37pm Salty Blair DO Discharged Recurring [facility] (OP) April 16, 2022 12:57pm April 20, 2022 11:59pm George Flor MD Departed Emergency [facility]-Emergency April 20, 2022 10:48pm April 21, 2022 [...] Information Provider Address 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 Al Winston MD Work Phone : [address] [place] [phone] Appointment on Saturday, April 16, 2022 at 9:00 AM [facility] Work Phone: [address] [place] [address] 3 [facility], [address] Al Winston MD Work Phone : [address] [facility] [address] Pedro Bryant am, MD Work Phone: [address] [place] [address] Future Procedures Procedure Name Ordered Date Scheduled [...]
--- OUTSIDE RECORDS SUMMARY | 2023-07-28 10:34 | XMS_ITS | Continuity of Care Document ---
Author Name Unknown Address [address] [place] [address] Phone [facility] Address [address] [place] [address] Phone Care Team Providers Care Protection Consultant Name Role Phone DO Heather Mena Emergency [...] Discontin ued 40 MG PO DAILY [facility] er 2017 11:00pm Februa ry 2022 8:49am Paroxetine Hcl Discontin ued 50 MG PO DAILY [facility] er 2017 11:00pm Februa ry 2022 4:14pm Aripiprazole Discontin ued 5 MG PO ONCE [facility] 2017 11:00pm Februa ry 2022 8:49am [...] Event Date Not Given Reason Dose Number Knit Goods Cutter Hand Lot Number Vaccine Information Statement (VIS) Detail Tetanus, Diphtheria, Pertussis (Tdap) April 02, 2022 [id number] Tetanus, Diphtheria, Pertussis (Tdap) September 25, 2022 [id number] Procedures Procedure Date Performed Status EKG ED Electrocardiogram March 20, 2023 6:49 pm active XR chest 1V portable March 20, 2023 6:49pm c ompleted Relevant Diagnostic Tests and/or Laboratory Data Laboratory Results Test Date/Time Result Interpretation Reference Range Result Comment Performing Site White Blood Count March 20, 2023 7:50pm 9.57 K/uL 4.30-10.00 [facility] [id number] [address] [facility] [address] Red Blood Count March 20, 2023 7:50pm 4.34 M/uL 3.80-5.00 [facility] [id number] [address] [facility] [address] Hemoglobin March 20, 2023 7:50pm 12.2 gm/dL 12.0-15.0 [facility] [id number] [address] [facility] [address] Hematocrit March 20, 2023 7:50pm 36.5 % 35.0-45.0 [facility] [id number] [address] [facility] [address] Mean Corpuscular Volume March 20, 2023 7:50pm 84.1 fL 85.0-100.0 [facility] [id number] [address] [facility] [address] Mean Corpuscular Hemoglobin March 20, 2023 7:50pm 28.1 pg 27.0-33.0 [facility] [id number] [address] [facility] [address] Mean Corpuscular Hemoglobin Concent March 20, 2023 7:50pm 33.4 gm/dL 32.0-36.0 [facility] [id number] [address] [facility] [address] Red Cell Distribution Width March 20, 2023 7:50pm 13.1 % 11.5-14.5 [facility] [id number] [address] [facility] [address] Platelet Count March 20, 2023 7:50pm 255 K/uL 150-400 [facility] [id number] [address] [facility] [address] Absolute Neutrophil March 20, 2023 7:50pm 5.4 K/uL 2.0-7.0 [facility] [id number] [address] [facility] [address] Immature Granulocyte % (Auto) March 20, 2023 7:50pm 0.3 % 0-1 [facility] [id number] [address] [facility] [address] Neutrophils (%) (Auto) March 20, 2023 7:50pm 56.1 % 45.0-75.0 [facility] [id number] [address] [facility] [address] Lymphocytes (%) (Auto) March 20, 2023 7:50pm 29.2 % 20.0-40.0 [facility] [id number] [address] [facility] [address] Monocytes (%) (Auto) March 20, 2023 7:50pm 10.2 % 1.0-13.1 [facility] [id number] [address] [facility] [address] Eosinophils (%) (Auto) March 20, 2023 7:50pm 3.7 % 0-5 [facility] [id number] [address] [facility] [address] Basophils (%) (Auto) March 20, 2023 7:50pm 0.5 % 0.0-1.0 [facility] [id number] [address] [facility] [address] Nucleated Red Blood Cells March 20, 2023 7:50pm 0.0 /100 WBC 0.0-1.0 [facility] [id number] [address] [facility] [address] Prothrombin Time March 20, 2023 7:50pm 10.3 seconds 9.3-12.1 [facility] [id number] [address] [facility] [address] Prothromb Time International Ratio March 20, 2023 7:50pm 1.0 0.9-1.2 Reference Interval is for non-anticoagul ated patients.Sugge sted INR Therapeutic Range for Vitamin K antogonist therapy:LEVELS OF THERAPY INDICATIONS TARGET INR RANGEStandard Dose Venous Thrombosis, 2.0 - 3.0 Atrial Fibrillation, Pulmonary Embolism. High Dose Valvular Heart Disease, 2.5 - 3.5 Mechanical Heart, Intracardiac Thrombosis. [facility] [id number] [address] [facility] [address] Activated Partial Thromboplast Time March 20, 2023 7:50pm 26.5 seconds 23.9-32.8 [facility] [id number] [address] [facility] [address] Sodium Level March 20, 2023 7:50pm 138 mEq/l 132-146 [facility] [id number] [address] [facility] [address] Potassium Level March 20, 2023 7:50pm 4.3 mEq/L 3.4-5.2 [facility] [id number] [address] [facility] [address] Chloride Level March 20, 2023 7:50pm 104 mEq/L 93-109 [facility] [id number] [address] [facility] [address] Carbon Dioxide Level March 20, 2023 7:50pm 26.0 mEq/L 20.0-32.0 [facility] [id number] [address] [facility] [address] Anion Gap March 20, 2023 7:50pm 8 5-20 [facility] [id number] [address] [facility] [address] Blood Urea Nitrogen March 20, 2023 7:50pm 15 mg/dL 6-22 [facility] [id number] [address] [facility] [address] Creatinine March 20, 2023 7:50pm 0.80 mg/dL 0.50-1.70 [facility] [id number] [address] [facility] [address] Estimated Creatinine Clearance March 20, 2023 7:50pm 64 mL/min This value is calculated by Cockcroft Gault Equation using ideal body weight. This result is dependent on an accurate patient height and weight which is obtained from patients medical record. Cockcroft, D.W. and M.H. Gault. Prediction of creatinine clearance from serum creatinine. Nephron. 1976. 16(1):31-41. [facility] [id number] [address] [facility] [address] Estimat Glomerular Filtration Rate March 20, 2023 7:50pm 75 >90 Reported eGFR is based on the CKD-EPI 2020 equation that does not use a race coefficient. Additional information can be found at:04-02-8261_ [email or web address] ([email or web address]) [facility] [id number] [address] [facility] [address] BUN/Creatinine Ratio March 20, 2023 7:50pm 19 Ratio 6-20 [facility] [id number] [address] [facility] [address] Glucose Level March 20, 2023 7:50pm 142 mg/dL 68-100 [facility] [id number] [address] [facility] [address] Calculated Osmolality March 20, 2023 7:50pm 279 mOsm/kg 270-290 [facility] [id number] [address] [facility] [address] Calcium Level March 20, 2023 7:50pm 8.8 mg/dL 8.0-10.4 [facility] [id number] [address] [facility] [address] Magnesium Level March 20, 2023 7:50pm 2.1 mg/dL 1.6-2.3 [facility] [id number] [address] [facility] [address] Total Bilirubin March 20, 2023 7:50pm 0.5 mg/dL 0.1-1.2 [facility] [id number] [address] [facility] [address] Aspartate Amino Transf (AST/SGOT) March 20, 2023 7:50pm 24 IU/L 4-44 [facility] [id number] [address] [facility] [address] Alanine Aminotransferase (ALT/SGPT) March 20, 2023 7:50pm 21 IU/L 5-40 [facility] [id number] [address] [facility] [address] Troponin I High Sensitivity March 20, 2023 [...] has not been fully characterized by Vandana [place]. [facility] [id number] [address] [facility] [address] Total Protein March 20, 2023 7:50pm 7.1 g/dL 5.6-8.0 [facility] [id number] [address] [facility] [address] Albumin March 20, 2023 7:50pm 4.2 g/dL 3.2-5.2 [facility] [id number] [address] [facility] [address] Globulin March 20, 2023 7:50pm 2.9 g/dL 2.0-3.9 [facility] [id number] [address] [facility] [address] Albumin/Globulin Ratio March 20, 2023 7:50pm 1.4 0.9-1.8 [facility] [id number] [address] [place] [address] Alkaline Phosphatase March 20, 2023 7:50pm 66 U/L 34-128 [facility] [id number] [address] [place] [address] Diagnostic Imaging Reports Author David Russell [facility] March 20, 2023 7:39pm Report Date/Time March 20, 2023 7 :42pm [address] [address] Patient Name: India Tapia Medical Record#: [id number] Address: [address] [place] [address] City/State/Zip: [place] [address]: Heather Mena DO Insurance: [facility] Dual Complete FULL /Age/Sex: 1945/77/F Self Pay Admit/Reg Date: 03/20/[address]: Heather flynn DO Location: ED./ PCP: Lavon Willis MD Date of Service: 03/20/23 Order (s): XR chest 1V portable CPT Code: 46268 Report Number: [id number] Reason for Exam: Chest pain EXAM: XR CHEST 1 VIEW DATE: 03/20/2023 5:49 PM 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 Home Phone: Payer Policy Id Coverage Id Subscriber's Name Subscriber Id Effective Date Expiration Date [employer] Medicare ADV [id number] India Tapia [id number] [facility] Dual Complete FULL [id number] India Tapia [id number] [facility] Medicare [id number] India Tapia [id number] Self Pay Self N/A Encounters Encounter Location(s) Arrival/Admit Date Discharge/Depart Date Provider(s) Departed Emergency [facility]-Emergency March 20, 2023 6:38pm March 20, 2023 [...] Address Pedro Bryant am, MD Work Phone: [address] [place] [address] Lavon odell MD Work Phone: [facility] [facility] [address] [facility] [address] Appointment on Saturday, April 16, 2022 at 9:00 AM [facility] Work Phone: [address] [place] [address] 3 [facility], [address] Al Winston MD Work Phone : [facility] [address] Pedro Bryant am, MD Work Phone: [address] [place] [address] 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 Al Winston MD Work Phone : [facility] [address] Al Winston MD Work Phone : [facility] [address] Salty Croft MD Work Phone: [address] [facility] [address] Fanny wilkerson MD Work Phone: [facility] [address] Lucie Slaughter MD Work Phone: [phone] [address] Pcp-Md MANPREET Sparrow Future Procedures Procedure Name [...] the emergency department to be reevaluated. Heather [facility] March 20, 2023 9:50pm
--- OUTSIDE RECORDS SUMMARY | 2023-07-28 10:34 | XMS_ITS | Continuity of Care Document ---
Author Name Unknown Address [address] [place] [address] Phone [facility] System Address [address] [place] [address] Phone Care Team Providers Care Coordinate Measuring Machine Operator Name Role Phone MD Fanny Marx Primary Care Provider [phone]( [phone] MD Addy Carey Emergency Provider DO Salty Blair Attending Provider Yarder, Crusher Feeder Other Provider Unavailable Chief Complaint and Reason for Visit Chief Complaint severe sepsis cellul itis Reason for Visit Leg wound, right Sepsis Severe sepsis Allergies, Adverse Reactions, Alerts Allergen Type Severity Reaction Last Updated Verified Status Sulfa (Sulfonamide Antibiotics) Adverse Reaction Unknown Unknown April 01, 2022 8:33pm Yes Active Social History Smoking Status Status Start Date End Date Date of Observa tion Former smoker October 06, 2 022 1:14am Observation Status Observation Response Date of Response Living Situation Private Home April 02, 2022 12:19am Additional Data Assigned Sex Female Problems Active Problems Medical Problem Onset Date Status Severe sepsis Active Sepsis Active Leg wound, right Active Colon polyps Active Inactive/Resolved Problems Medical Problem Onset Date Status RSV (respiratory syncytial virus infection) Resolved Hypertension Resolved Medications Medication Status Dose Units Route Directions Qty Days St art Date End Date Instructions Lovastatin Active 40 MG PO DAILY Octem b er 2017 11:00pm Paroxetine Hcl Active 50 MG PO DAILY er 2017 11:00pm Aripiprazole Active 5 MG PO ONCE Sept emb er 2017 11:00pm Prednisone Discontin ued 40 MG PO DAILY 8 4 October 04, 2021 11:00pm October 08, 2021 11:22p m Benzonatate Active 100 MG PO THREE TI MES A DAY October 04, 2021 11:00pm Immunizations Immunization Event Date Not Given Reason Dose Number Para Educator Lot Number Vaccine Information Statement (VIS) Detail Tetanus, Diphtheria, Pertussis (Tdap) April 02, 2022 [id number] Procedures Procedure Date Performed Status EKG ED Electrocardiogram April 01, 2022 8:33 pm active XR chest 1V portable April 01, 2022 8:33pm c ompleted XR tibia fibula RT 2V April 01, 2022 11:28pm completed CT head/brain wo contrast April 02, 2022 12 :00am completed CT elbow LT w contrast April 02, 2022 12:00 am completed SARS-CoV-2, Influenza & RSV (PCR) completed Gram Stain active Superficial Wound Culture active Blood Culture active Relevant Diagnostic Tests and/or Laboratory Data Laboratory Results Test Date/Time Result Interpretation Reference Range Result Comment Performing Site White Blood Count April 01, 2022 8:49pm 13.47 K/uL 4.30-10.00 [facility] [id number] [address] [facility] [address] Red Blood Count April 01, 2022 8:49pm 4.51 M/uL 3.80-5.00 [facility] [id number] [address] [facility] [address] Hemoglobin April 01, 2022 8:49pm 12.6 gm/dL 12.0-15.0 [facility] [id number] [address] [facility] [address] Hematocrit April 01, 2022 8:49pm 38.0 % 35.0-45.0 [facility] [id number] [address] [facility] [address] Mean Corpuscular Volume April 01, 2022 8:49pm 84.3 fL 85.0-100.0 [facility] [id number] [address] [facility] [address] Mean Corpuscular Hemoglobin April 01, 2022 8:49pm 27.9 pg 27.0-33.0 [facility] [id number] [address] [facility] [address] Mean Corpuscular Hemoglobin Concent April 01, 2022 8:49pm 33.2 gm/dL 32.0-36.0 [facility] [id number] [address] [facility] [address] Red Cell Distribution Width April 01, 2022 8:49pm 13.1 % 11.5-14.5 [facility] [id number] [address] [facility] [address] Platelet Count April 01, 2022 8:49pm 215 K/uL 150-400 [facility] [id number] [address] [facility] [address] Absolute Neutrophil April 01, 2022 8:49pm 10.5 K/uL 2.0-7.0 [facility] [id number] [address] [facility] [address] Immature Granulocyte % (Auto) April 01, 2022 8:49pm 0.4 % 0-1 [facility] [id number] [address] [facility] [address] Neutrophils (%) (Auto) April 01, 2022 8:49pm 78.7 % 45.0-75.0 [facility] [id number] [address] [facility] [address] Lymphocytes (%) (Auto) April 01, 2022 8:49pm 8.2 % 20.0-40.0 [facility] [id number] [address] [facility] [address] Monocytes (%) (Auto) April 01, 2022 8:49pm 12.2 % 1.0-13.1 [facility] [id number] [address] [facility] [address] Eosinophils (%) (Auto) April 01, 2022 8:49pm 0.2 % 0-5 [facility] [id number] [address] [facility] [address] Basophils (%) (Auto) April 01, 2022 8:49pm 0.3 % 0.0-1.0 [facility] [id number] [address] [facility] [address] Nucleated Red Blood Cells February 9th, 2023 8:49pm 0.0 /100 WBC 0.0-1.0 [facility] [id number] [address] [facility] [address] Erythrocyte Sedimentation Rate April 01, 2022 8:49pm 25 mm 0-15 [facility] [id number] [address] [facility] [address] Prothrombin Time April 01, 2022 8:49pm 10.7 seconds 9.3-12.1 [facility] [id number] [address] [facility] [address] Prothromb Time International Ratio April 01, 2022 8:49pm 1.0 0.9-1.2 Reference Interval is for non-anticoagul ated patients.Reynold crespod INR Therapeutic Range for Vitamin K antogonist therapy:LEVELS OF THERAPY INDICATIONS TARGET INR RANGEStandard Dose Venous Thrombosis, 2.0 - 3.0 Atrial Fibrillation, Pulmonary Embolism. High Dose Valvular Heart Disease, 2.5 - 3.5 Mechanical Heart, Intracardiac Thrombosis. [facility] [id number] [address] [facility] [address] Activated Partial Thromboplast Time April 01, 2022 8:49pm 25.8 seconds 23.9-32.8 [facility] [id number] [address] [facility] [address] Anti-Xa Level April 01, 2022 8:49pm < 0.10 IU/mL 0.30-0.70 [facility] [id number] [address] [facility] [address] Urine Color April 01, 2022 10:52pm Yellow Yellow [facility] [id number] [address] [facility] [address] Urine Clarity April 01, 2022 10:52pm Clear Clear [facility] [id number] [address] [facility] [address] Urine pH April 01, 2022 10:52pm 7.5 5.0-8.0 [facility] [id number] [address] [facility] [address] Urine Specific [place] April 01, 2022 10:52pm <= 1.005 1.005-1.03 0 [facility] [id number] [address] [facility] [address] Urine Blood April 01, 2022 10:52pm Negative mg/dL Negative [facility] [id number] [address] [facility] [address] Urine Protein April 01, 2022 10:52pm Negative mg/dl Negative [facility] [id number] [address] [facility] [address] Urine Glucose (UA) April 01, 2022 10:52pm Negative mg/dL Negative [facility] [id number] [address] [facility] [address] Urine Ketones April 01, 2022 10:52pm Negative mg/dL Negative [facility] [id number] [address] [facility] [address] Urine Nitrate April 01, 2022 10:52pm Negative Negative [facility] [id number] [address] [facility] [address] Urine Bilirubin April 01, 2022 10:52pm Negative mg/dL Negative [facility] [id number] [address] [facility] [address] Urine Urobilinogen April 01, 2022 10:52pm 1.0 E.U./dL 0.2 [facility] [id number] [address] [facility] [address] Urine Leukocyte Esterase April 01, 2022 10:52pm Trace mg/dL Negative [facility] [id number] [address] [facility] [address] Sodium Level April 01, 2022 8:49pm 132 mEq/l 132-146 [facility] [id number] [address] [facility] [address] Potassium Level April 01, 2022 8:49pm 3.9 mEq/L 3.4-5.2 [facility] [id number] [address] [facility] [address] Chloride Level April 01, 2022 8:49pm 98 mEq/L 93-109 [facility] [id number] [address] [facility] [address] Carbon Dioxide Level April 01, 2022 8:49pm 25.0 mEq/L 20.0-32.0 [facility] [id number] [address] [facility] [address] Anion Gap April 01, 2022 8:49pm 9 5-20 [facility] [id number] [address] [facility] [address] Blood Urea Nitrogen April 01, 2022 8:49pm 11 mg/dL 08-12 [facility] [id number] [address] [facility] [address] Creatinine April 01, 2022 8:49pm 0.80 mg/dL 0.50-1.70 [facility] [id number] [address] [facility] [address] Estimated Creatinine Clearance April 01, 2022 8:49pm 68 mL/min This value is calculated by Cockcroft Gault Equation using ideal body weight. This result is dependent on an accurate patient height and weight which is obtained from patients medical record. Pratibhaofhanny, Karlene.W. and M.H. Gault. Prediction of creatinine clearance from serum creatinine. Nephron. 1976. 16(1):31-41. [facility] [id number] [address] [facility] [address] Estimat Glomerular Filtration Rate April 01, 2022 8:49pm 76 >90 Reported eGFR is based on the CKD-EPI 2020 equation that does not use a race coefficient. Additional information can be found at:[id number]_ [email or web address] ([email or web address]) [facility] [id number] [address] [facility] [address] BUN/Creatinine Ratio April 01, 2022 8:49pm 14 Ratio 08-10 [facility] [id number] [address] [facility] [address] Glucose Level April 01, 2022 8:49pm 134 mg/dL 68-100 [facility] [id number] [address] [facility] [address] Calculated Osmolality April 01, 2022 8:49pm 266 mOsm/kg 270-290 [facility] [id number] [address] [facility] [address] Lactic Acid Level April 01, 2022 11:49pm 1.0 mmo/L 0.5-2.0 [facility] [id number] [address] [facility] [address] Calcium Level April 01, 2022 8:49pm 8.8 mg/dL 8.0-10.4 [facility] [id number] [address] [facility] [address] Magnesium Level April 01, 2022 8:49pm 1.7 mg/dL 1.6-2.3 [facility] [id number] [address] [facility] [address] Total Bilirubin April 01, 2022 8:49pm 0.6 mg/dL 0.1-1.2 [facility] [id number] [address] [facility] [address] Aspartate Amino Transf (AST/SGOT) April 01, 2022 8:49pm 22 IU/L 4-44 [facility] [id number] [address] [facility] [address] Alanine Aminotransferase (ALT/SGPT) April 01, 2022 8:49pm 18 IU/L 5-40 [facility] [id number] [address] [facility] [address] Troponin I High Sensitivity April 01, 2022 [...] has not been fully characterized by Vandana Avon. [facility] [id number] [address] [facility] [address] C-Reactive Protein High Sensitivity April 01, 2022 8:49pm 47.050 mg/L 0.000-7.48 0 The [employer] states the best evidence to date supports the use of hs-CRP as an independent predictor of increased coronary risk.The defined risk groups are as follows:Low Risk: Less than 1.0 mg/LAverage Risk: 1.0 to 3.0 mg/LHigh Risk: Above 3.0 mg/LIf the hs-CRP level is >10 mg/L, the test should be repeated, and patient examined for sources of infection or inflammation. [facility] [id number] [address] [facility] [address] Total Protein April 01, 2022 8:49pm 6.8 g/dL 5.6-8.0 [facility] [id number] [address] [facility] [address] Albumin April 01, 2022 8:49pm 4.0 g/dL 3.2-5.2 [facility] [id number] [address] [facility] [address] Globulin April 01, 2022 8:49pm 2.8 g/dL 2.0-3.9 [facility] [id number] [address] [place] [address] Albumin/Globulin Ratio April 01, 2022 8:49pm 1.4 0.9-1.8 [facility] [id number] [address] [facility] [address] Alkaline Phosphatase April 01, 2022 8:49pm 75 U/L 34-128 [facility] [id number] [address] [facility] [address] Microbiology Results Procedure Source Result Collection Date/Time Result Date/Time Result Comment Performing Site SARS-CoV-2, Influenza & RSV (PCR) Nares April 02, 2022 1:09am [facility] [id number] [address] [place] [address] Diagnostic Imaging Reports Report Dictated Date/Time Dictated By Status Radiology Report April 01, 2022 10:00pm Jared constantino MD completed [address] [address] Patient Name: India Tapia Medical Record#: [id number] Address: [address] [place] [address] City/State/Zip: [place] [address]: Addy Carey MD Insurance: [facility] Dual Complete FULL /Age/Sex: 1945/F Self Pay Admit/Reg Date: 04/01/[address]: Addy vela MD Location: ED./ PCP: Fanny Marx MD Date of Service: 04/01/22 Order (s): XR chest 1V portable CPT Code: 84234 Report Number: [id number] Reason for Exam: cp Indication: cp Date of exam:04/01/2022 7:33 PM LITIGATION LEGAL SECRETARY Comparison: [10/05/2021] Impression: Portable AP chest radiograph shows no consolidation. No large pleural effusion or pneumothorax. Minimal linear opacity in the mid to lower left lung is present on prior exam as well and likely represents scarring. Electronically signed by: Jared Max MD 04/01/2022 9:00 PM LITIGATION LEGAL SECRETARY Dictated By: Jared Max MD 04/01/222199 Signed By: Jared Max MD 04/01/222201 TD/TT: 04/01/222199Tech: [id number] cc: [id number]; ZIONRO* Fanny Marx MD; Addy Carey MD Report Dictated Date/Time Dictated By Status Radiology Report April 02, 2022 12:23am Jared Max MD completed [place] [id number] Patient Name: India Tapia Medical Record#: [id number] Address: [address] [place] [address] City/State/Zip: [place] [address]: Alfredo Blair DO Insurance: [facility] Dual Complete FULL /Age/Sex: 1945/F Self Pay Admit/Reg Date: 04/01/[address]: Addy vela MD Location: ED.[facility] [address] PCP: Cristina Marx MD Date of Service: 04/01/22 Order (s): XR tibia fibula RT 2V CPT Code: 41943 Report Number: [id number] Reason for Exam: wound Indication: wound Date of exam:04/01/2022 10:28 PM LITIGATION LEGAL SECRETARY Impression: 2 views of the right tibia and fibula show No acute fracture or malalignment. No radiopaque foreign body. Electronically signed by: Jared Max MD 04/01/2022 11:23 PM LITIGATION LEGAL SECRETARY Dictated By: Jared Max MD 04/02/2222 Signed By: Jared Max MD 04/02/2224 TD/TT: 04/02/2222Tech: [id number] cc: [id number]; JEISON* Fanny Marx MD; Addy Carey MD Report Dictated Date/Time Dictated By Status Radiology Report April 02, 2022 2:02am Fabio Fernandez MD completed [place] [id number] Patient Name: India Tapia Medical Record#: [id number] Address: [address] [place] [address] City/State/Zip: [place] [address]: Alfredo Blair DO Insurance: [facility] Dual Complete FULL /Age/Sex: 1945/76/F Self Pay Admit/Reg Date: 04/01/[address]: Addy vela MD Location: [place] [address] PCP: Cristina Marx MD Date of Service: 04/02/22 Order (s): CT head/brain wo contrast CPT Code: 11433 Report Number: [id number] Reason for Exam: ams CT HEAD WITHOUT IV CONTRAST COMPARISON: 06/05/2018 COMPLETED DATE: 04/01/2022 11:00 PM LITIGATION LEGAL SECRETARY CLINICAL INFORMATION: Patient Age: 76 years Patient [...] by: Fabio Fernandez MD 04/02/2022 1:02 AM LITIGATION LEGAL SECRETARY Dictated By: Fabio Fernandez MD 04/02/22201 Signed By: Fabio Fernandez MD 04/02/22204 TD/TT: 04/02/22201Tech: [id number] cc: [id number]; HESRO* Fanny Marx MD; Addy Carey MD Report Dictated Date/Time Dictated By Status Radiology Report April 02, 2022 2:14am Jared Max MD completed [address] [address] Patient Name: India Tapia Medical Record#: [id number] Address: [address] [place] [address] City/State/Zip: [place] [address]: Alfredo Blair DO Insurance: [facility] Dual Complete FULL /Age/Sex: 1945/76/F Self Pay Admit/Reg Date: 04/01/[address]: Salty Blair DO Location: ED.[place] [address] PCP: Cristina Marx MD Date of Service: 04/02/22 Order (s): CT elbow LT w contrast CPT Code: 55060 Report Number: [id number] Reason for Exam: Assess for septic arthritis, abscess Indication: Assess for septic arthritis, abscess Date of exam: 04/01/2022 11:00 PM LITIGATION LEGAL SECRETARY Exam: CT of the left elbow using [...] by: Jared Max MD 04/02/2022 1:14 AM LITIGATION LEGAL SECRETARY Dictated By: Jared Max MD 04/02/22213 Signed By: Jared Max MD 04/02/22216 TD/TT: 04/02/22213Tech: [id number] cc: [email or web address]; DINRO01* Fanny Marx MD; Salty Blair DO Report Dictated Date/Time Dictated By Status Echocardiogram April 06, 2022 6:43pm Pedro Phelps MD completed [place] [id number] Patient Name: India Tapia Medical Record#: [id number] Address: [address] [place] [address] City/State/Zip: [place] [address]: Alfredo Blair DO Insurance: [facility] Dual Complete FULL /Age/Sex: 1945/76/F Self Pay Admit/Reg Date: 04/01/[address]: Johnna Coates NP [facility] PCP: Al Winston MD Date of Service: 04/05/22 Order (s): Echo TTE cmp w/dop wo contrast CPT Code: 98681 Report Number: [id number] Reason for Exam: bradycardia with AV block Transthoracic Echocardiography Report (TTE) Demographics Patient Name Willie Keyes Gender Female MR Number [id number] Date of 1945 Age 76 year(s) Room Number RL311 Height 68 inches Date of study 04/06/2022 Weight 191.32 pounds Referring MD BSA 2.01 m^2 Interpreting MD Pedro Phelps BMI 29.09 kg/m^2 MD Fellow Colleter Gabbie Hodges RDVA Conclusions Summary EF Calculated: 70 % Mild [...] Velocity: 99.1 cm/s Peak Gradient: 3.93 mmHg [place] ED Velocity: 84.2 cm/s LVOT Peak Velocity: 123 cm/s Mean Velocity: 72.4 cm/s Peak Gradient: 6 mmHg Mean Gradient: 3 mmHg LVOT Diameter: 1.9 cm LVOT VTI: 25.4 cm Signature Dictated By: Pedro Phelps MD 04/06/221842 Signed By: Pedro Phelps MD 04/07/222139 TD/TT: 04/06/221842Tech: [email or web address] cc: [email or web address]; ANA LUISA; MADELYN* Johnna Coates NP; Al Winston MD; Pedro Phelps MD Vital Signs Vital Reading Result Reference Range Collection Date/Time Height 172.72 cm April 01 023 8:26pm Weight 86.18 kg April 01 023 8:26pm Body Temperature 102.4 [degF] 97.6-99.6 March 8:26pm Heart Rate 80 /min 60-90 April 02, 2022 4:19am Respiratory rate 16 /min 12-24 March 8:26pm Oxygen saturation by Pulse oximetry 97 % 95-100 April 02, 2022 2:40am BP Systolic 175 mm[Hg] 90-140 April 02, 2022 2:40am BP Diastolic 77 mm[Hg] 60-90 April 02, 2022 2:40am BMI (Body Mass Index) 28.9 kg/m2 2022 12:05am Advance Directives Advance Directive Response Recorded Date/ Time Advance Directives No April 01, 2022 8:20pm Health Care Proxy No April 01, 2022 8:20pm Insurance Providers Guarantor India Tapia Address [address] [place] [phone] Contact Info. Home Phone: Payer Policy Id Coverage Id Subscriber's Name Subscriber Id Effective Date Expiration Date [employer] Medicare ADV [id number] India Tapia [id number] [facility] Dual Complete FULL [id number] India Tapia [id number] [facility] Medicare [id number] India Tapia [id number] Self Pay Self N/A Encounters Encounter Location(s) Arrival/Admit Date Discharge/Depart Date Provider(s) Admitted Inpatient [facility]Emergency Room Holding April 01, 2022 11:53pm Salty Blair DO Recent Diagnosis Onset Date Leg wound, right Sepsis Severe sepsis Assessments Diagnosis Onset Date Resolution Status Leg wound, right acute Sepsis acute Severe sepsis acute Plan of Treatment Future Tests Future scheduled test information is unavailable Pending Tests Test Name Ordered Date Scheduled Date Methicillin-Resist S. Aureus (PCR) April 01, 2022 10:52pm VTE Risk Assessment Medical April 01, 2022 1 1:58pm April 01, 2022 11:58pm VTE Risk Assessment Medical April 02, 2022 12:00am April 02, 2022 12:00am Future Visits Future appointment information is unavailable Referrals to Other Providers Referral information is unavailable Future Procedures Procedure Name Ordered Date Scheduled Date Basic Metabolic Panel April 01, 2022 11:58pm April 02, 2022 6:00am Complete Blood Count Auto Diff April 01, 2022 11:58pm April 02, 2022 6:00am Hemoglobin A1C April 01, 2022 11:58pm April 01, 2022 8:49pm Wound Cul Superf[facility] & [address] St April 012022 11:31pm April 01, 2022 8:37pm EKG ED Electrocardiogram April 01, 2022 8:33 pm April 01, 2022 8:33pm Hospital Level of Care April 01 11:53pm April 01, 2022 11:53pm Wound / Skin Care RN Consult March 11:58pm April 01, 2022 11:58pm Activity April 01, 2022 11:58pm April 01, 2022 11:58pm Code Status April 01, 2022 11:58pm April 01, 2022 11:58pm Infectious Disease Consult March 1:17am April 02, 2022 1:17am Peripheral IV Insert/Manage April 01, 2022 8 :33pm April 01, 2022 8:33pm Oxygen Initiate/Maintain April 01 11:58pm April 01, 2022 11:58pm Sepsis Fluid Quality Measure April 022022 12:00am April 02, 2022 12:00am Patient Preference for Pain Management April 01, 2022 11:58pm April 01, 2022 11:58pm Continuous Pulse Oximetry April 01, 2022 8:3 3pm April 01, 2022 8:33pm Sequential Compression Device March 242022 12:00am April 02, 2022 12:00am Sequential Compression Device April 012022 11:58pm April 01, 2022 11:58pm Future Medications Future medication information is unavailable Patient Instructions Patient instructions are unavailable
--- OUTSIDE RECORDS SUMMARY | 2023-07-28 10:34 | XMS_ITS | Continuity of Care Document ---
Author Name Unknown Address [address] [place] [address] Phone [facility] Address [address] [place] [address] Phone Care Team Providers Care Pit Manager Name Role Phone DO Isabell Fang Emergency Provider MD Fanny Marx Primary Care Provider Chief Complaint and Reason for Visit Chief Complaint cough Allergies, Adverse Reactions, Alerts Allergen Type Severity Reaction Last Updated Verified Status Sulfa (Sulfonamide Antibiotics) Adverse Reaction Unknown Unknown October 05, 2021 12:35am Yes Active Social History Smoking Status Status Start Date End Date Date of Observa tion Ex-smoker (finding) September 212021 12:35am Observation Status Observation Response Date of Response Living Situation Private Home October 05 12:35am Additional Data Assigned Sex Female Problems Active Problems Medical Problem Onset Date Status RSV (respiratory syncytial virus infection) Active Colon polyps Active Medications Medication Status [...] MG PO THREE TI MES A DAY 21 October 05, 2021 12:00am Procedures Procedure Date Performed Status EKG ED Electrocardiogram October 05, 2021 12:39 am active XR chest 1V portable October 05, 2021 12:40am c ompleted SARS-CoV-2, Influenza & RSV (PCR) completed Relevant Diagnostic Tests and/or Laboratory Data Laboratory Results Test Date/Time Result Interpretation Reference Range Result Comment Performing Site White Blood Count October 05, 2021 12:55am 8.61 K/uL 4.30-10.00 [facility] [address] [facility] [address] Red Blood Count October 05, 2021 12:55am 4.70 M/uL 3.80-5.00 [facility] [address] [facility] [address] Hemoglobin October 05, 2021 12:55am 12.9 gm/dL 12.0-15.0 [facility] [address] [facility] [address] Hematocrit October 05, 2021 12:55am 39.2 % 35.0-45.0 [facility] [address] [facility] [address] Mean Corpuscular Volume October 05, 2021 12:55am 83.4 fL 85.0-100.0 [facility] [address] [facility] [address] Mean Corpuscular Hemoglobin October 05, 2021 12:55am 27.4 pg 27.0-33.0 [facility] [address] [facility] [address] Mean Corpuscular Hemoglobin Concent October 05, 2021 12:55am 32.9 gm/dL 32.0-36.0 [facility] [address] [facility] [address] Red Cell Distribution Width October 05, 2021 12:55am 13.2 % 11.5-14.5 [facility] [address] [facility] [address] Platelet Count October 05, 2021 12:55am 249 K/uL 150-400 [facility] [address] [facility] [address] Absolute Neutrophil October 05, 2021 12:55am 4.4 K/uL 2.0-7.0 [facility] [address] [facility] [address] Immature Granulocyte % (Auto) October 05, 2021 12:55am 0.3 % 0-1 [facility] [address] [facility] [address] Neutrophils (%) (Auto) October 05, 2021 12:55am 51.5 % 45.0-75.0 [facility] [address] [facility] [address] Lymphocytes (%) (Auto) October 05, 2021 12:55am 33.2 % 20.0-40.0 [facility] [address] [facility] [address] Monocytes (%) (Auto) October 05, 2021 12:55am 11.7 % 1.0-13.1 [facility] [address] [facility] [address] Eosinophils (%) (Auto) October 05, 2021 12:55am 2.8 % 0-5 [facility] [address] [facility] [address] Basophils (%) (Auto) October 05, 2021 12:55am 0.5 % 0.0-1.0 [facility] [address] [facility] [address] Nucleated Red Blood Cells October 05, 2021 12:55am 0.0 /100 WBC 0.0-1.0 [facility] [address] [facility] [address] Prothrombin Time October 05, 2021 12:55am 10.4 seconds 9.3-12.1 [facility] [address] [facility] [address] Prothromb Time International Ratio October 05, 2021 12:55am 1.0 0.9-1.2 Reference Interval is for non-anticoagul ated patients. Suggested INR Therapeutic Range for Vitamin K antogonist therapy: LEVELS OF THERAPY INDICATIONS TARGET INR RANGE Standard Dose Venous Thrombosis, 2.0 - 3.0 Atrial Fibrillation, Pulmonary Embolism. High Dose Valvular Heart Disease, 2.5 - 3.5 Mechanical Heart, Intracardiac Thrombosis. [facility] [address] [facility] [address] Activated Partial Thromboplast Time October 05, 2021 12:55am 25.1 seconds 23.9-32.8 [facility] [address] [facility] [address] Sodium Level October 05, 2021 12:55am 136 mEq/l 132-146 [facility] [address] [facility] [address] Potassium Level October 05, 2021 12:55am 3.8 mEq/L 3.4-5.2 [facility] [address] [facility] [address] Chloride Level October 05, 2021 12:55am 103 mEq/L 93-109 [facility] [address] [facility] [address] Carbon Dioxide Level October 05, 2021 12:55am 27.0 mEq/L 20.0-32.0 [facility] [address] [facility] [address] Anion Gap October 05, 2021 12:55am 6 5-20 [facility] [address] [facility] [address] Blood Urea Nitrogen October 05, 2021 12:55am 12 mg/dL 6- [facility] [address] [facility] [address] Creatinine October 05, 2021 12:55am 0.80 mg/dL 0.50-1.70 [facility] [address] [facility] [address] Estimated Creatinine Clearance October 05, 2021 12:55am 68 mL/min This value is calculated by Cockcroft Gault Equation using ideal body weight. This result is dependent on an accurate patient height and weight which is obtained from patients medical record. Pratibhaofhanny, D.W. and M.H. Gatravis. Prediction of creatinine clearance from serum creatinine. Nephron. 1976. 16(1):31-41. [facility] [address] [facility] [address] Estimated GFR () October 05, 2021 12:55am > 60 >=60 [facility] [address] [facility] [address] Estimated GFR (Non- October 05, 2021 12:55am [...] with decreased kidney function <=15 Kidney Failure [facility] [address] [facility] [address] BUN/Creatinine Ratio October 05, 2021 12:55am 15 Ratio -20 [facility] [address] [facility] [address] Glucose Level October 05, 2021 12:55am 104 mg/dL 68-100 [facility] [address] [facility] [address] Calculated Osmolality October 05, 2021 12:55am 272 mOsm/kg 270-290 [facility] [address] [facility] [address] Calcium Level October 05, 2021 12:55am 9.3 mg/dL 8.0-10.4 [facility] [address] [facility] [address] Magnesium Level October 05, 2021 12:55am 1.9 mg/dL 1.6-2.3 [facility] [address] [facility] [facility] [address] Total Bilirubin October 05, 2021 12:55am 0.6 mg/dL 0.1-1.2 [facility] [address] [facility] [facility] [address] Aspartate Amino Transf (AST/SGOT) October 05, 2021 12:55am 25 IU/L 4-44 [facility] [address] [facility] [facility] [address] Alanine Aminotransferase (ALT/SGPT) October 05, 2021 12:55am 20 IU/L 5-40 [facility] [address] [facility] [address] Troponin I High Sensitivity October 05, 2021 [...] has not been fully characterized by [facility] [place]. [facility] [address] [facility] [facility] [address] B-Type Natriuretic Peptide October 05, 2021 12:55am 69 pg/mL 0-100 [facility] [address] [facility] [address] Total Protein October 05, 2021 12:55am 7.2 g/dL 5.6-8.0 [facility] [address] [place] [address] Albumin October 05, 2021 12:55am 4.2 g/dL 3.2-5.[address] [address] Globulin October 05, 2021 12:55am 3.0 g/dL 2.0-3.9 [place] 6130755 Albumin/Globulin Ratio October 05, 2021 12:55am 1.4 0.9-[address] [address] Alkaline Phosphatase October 05, 2021 12:55am 71 U/L 34-[address] [address] Microbiology Results Procedure Source Result Collection Date/Time Result Date/Time Result Comment Performing Site SARS-CoV-2, Influenza & RSV (PCR) Nares October 05, 2021 1:57am [facility] [address] [place], [place] [id number] Diagnostic Imaging Reports Report Dictated Date/Time Dictated By Status Radiology Report October 05, 2021 1:12am Fabio Fernandez MD completed [place] [id number] Patient Name: India Tapia Medical Record#: [id number] Address: [address] [place] [address] City/State/[place] [address]: Meena Fang DO Insurance: [facility] Dual Complete FULL /Age/Sex: 1945/76/F Self Pay Admit/Reg Date: 10/05/[address]: Isabell adair DO Location: ED.RH/ PCP: Fanny Marx MD Date of Service: 10/05/21 Order (s): XR chest 1V portable CPT Code: 12039 Report Number: [id number] Reason for Exam: Dyspnea XR chest 1V [...] MD 10/05/21111 Signed By: Fabio Fernandez MD 10/05/21113 TD/TT: 10/05/21111Tech: [id number] cc: [id number]; [id number]* Fanny Marx MD; Isabell Fang DO Vital Signs Vital Reading Result Reference Range Collection Date/Time Height 172.72 cm October 05 12:35am Weight 86.18 kg October 05 12:35am Body Temperature 98 [degF] 97.6-99.6 September 4:16am Heart Rate 88 /min 60-90 October 05 4:16am Respiratory rate 18 /min 12-24 September 4:16am Oxygen saturation by Pulse oximetry 96 % 95-100 October 05, 2021 4: 16am BP Systolic 150 mm[Hg] 90-140 October 05 4:16am BP Diastolic 83 mm[Hg] 60-90 October 05 4:16am BMI (Body Mass Index) 28.9 kg/m2 October 05, 2021 12:35am Advance Directives Advance Directive Response Recorded Date/ Time Advance Directives No October 05, 2021 1:03am Health Care Proxy No October 05, 2 022 1:03am Insurance Providers Guarantor India Tapia Address [address] [place] [phone] Contact Info. Home Phone: Payer Policy Id Coverage Id Subscriber's Name Subscriber Id Effective Date Expiration Date [employer] ADV [id number] India Tapia [id number] [facility] Dual Complete FULL [id number] India Tapia [id number] Well[employer] Medicare [id number] India Tapia [id number] Self Pay Self N/A Encounters Encounter Location(s) Arrival/Admit Date Discharge/Depart Date Provider(s) Departed Emergency [facility] October 05, 2021 12:30am October 05, 2021 4:23am null Plan of Treatment Future Tests Future scheduled test information is unavailable Pending Tests Test Name Date ordered Troponin I High Sensitivity October 05, 2021 3:50am Future Visits Future appointment information is unavailable Referrals to Other Providers Reason for Referral Referral Start Date Provider Provider Contact Information Provider Address Fanny Marx MD Work Phone: [address] [facility] [address] Irena Koo MD Work Phone: [address] [facility] [address] Lizeth Rivera MD Work Phone: [phone] [facility] [address] [facility] [address] Future Procedures Procedure Name Scheduled Date EKG ED Electrocardiogram October 05 12:39am Troponin I High Sensitivity October 05, 2021 3:50am UA, Urinalysis Rflx Cult/Sedmt October 052021 12:39am Peripheral IV Insert/Manage October 05, 2021 12:39am Future Medications Future medication information is unavailable Patient Instructions ED RSV Infection (Bronchioli tis) Goals Acute Goals Please follow-up with your [facility] doctor
--- OUTSIDE RECORDS SUMMARY | 2023-07-28 10:34 | XMS_ITS | Continuity of Care Document ---
Author Name Unknown Address [address] [place] [address] Phone [facility] Address [address] [place] [address] Phone Care Team Providers Care Truck Chauffeur Name Role Phone DO Isabell Fang Emergency Provider MD Fanny Marx Primary Care Provider [phone] Chief Complaint and Reason for Visit Chief [...] October 05, 2021 12:55am 8.61 K/uL 4.30-10.00 [facility] [address] [facility] [address] White Blood Count October 06, 2021 2:30am 14.62 K/uL 4.30-10.00 [facility] [address] [facility] [address] Red Blood Count October 05, 2021 12:55am 4.70 M/uL 3.80-5.00 [facility] [address] [facility] [address] Red Blood Count October 06, 2021 2:30am 4.63 M/uL 3.80-5.00 [facility] [address] [facility] [address] Hemoglobin October 05, 2021 12:55am 12.9 gm/dL 12.0-15.0 [facility] [address] [facility] [address] Hemoglobin October 06, 2021 2:30am 12.7 gm/dL 12.0-15.0 [facility] [address] [facility] [address] Hematocrit October 05, 2021 12:55am 39.2 % 35.0-45.0 [facility] [address] [facility] [address] Hematocrit October 06, 2021 2:30am 38.2 % 35.0-45.0 [facility] [address] [facility] [address] Mean Corpuscular Volume October 05, 2021 12:55am 83.4 fL 85.0-100.0 [facility] [address] Mean Corpuscular Volume October 06, 2021 2:30am 82.5 fL 85.0-100.0 [facility] [address] [facility] [address] Mean Corpuscular Hemoglobin October 05, 2021 12:55am 27.4 pg 27.0-33.0 [facility] [address] [facility] [address] Mean Corpuscular Hemoglobin October 06, 2021 2:30am 27.4 pg 27.0-33.0 [facility] [address] [facility] [address] Mean Corpuscular Hemoglobin Concent October 05, 2021 12:55am 32.9 gm/dL 32.0-36.0 [facility] [address] [facility] [address] Mean Corpuscular Hemoglobin Concent October 06, 2021 2:30am 33.2 gm/dL 32.0-36.0 [facility] [address] [facility] [address] Red Cell Distribution Width October 05, 2021 12:55am 13.2 % 11.5-14.5 [facility] [address] [facility] [address] Red Cell Distribution Width October 06, 2021 2:30am 13.4 % 11.5-14.5 [facility] [address] [facility] [address] Platelet Count October 05, 2021 12:55am 249 K/uL 150-400 [facility] [address] [facility] [address] Platelet Count October 06, 2021 2:30am 278 K/uL 150-400 [facility] [address] [facility] [address] Absolute Neutrophil October 05, 2021 12:55am 4.4 K/uL 2.0-7.[address] [address] Absolute Neutrophil October 06, 2021 2:30am 11.8 K/uL 2.0-7.0 [facility] [address] [facility] [address] Immature Granulocyte % (Auto) October 05, 2021 12:55am 0.3 % 0-[address] [address] Immature Granulocyte % (Auto) October 06, 2021 2:30am 0.4 % 0-[address] [address] Neutrophils (%) (Auto) October 05, 2021 12:55am 51.5 % 45.0-75.0 [facility] [address] [facility] [address] Neutrophils (%) (Auto) October 06, 2021 2:30am 81.7 % 45.0-75.0 [facility] [address] [facility] [address] Lymphocytes (%) (Auto) October 05, 2021 12:55am 33.2 % 20.0-40.0 [facility] [address] [facility] [address] Lymphocytes (%) (Auto) October 06, 2021 2:30am 9.9 % 20.0-40.0 [facility] [address] Monocytes (%) (Auto) October 05, 2021 12:55am 11.7 % 1.0-13.1 [facility] [address] [facility] [address] Monocytes (%) (Auto) October 06, 2021 2:30am 7.9 % 1.0-13.[address] [address] Eosinophils (%) (Auto) October 05, 2021 12:55am 2.8 % 0-5 [facility] [address] [facility] [address] Eosinophils (%) (Auto) October 06, 2021 2:30am 0.0 % 0-[address] [address] Basophils (%) (Auto) October 05, 2021 12:55am 0.5 % 0.0-1.[address] [address] Basophils (%) (Auto) October 06, 2021 2:30am 0.1 % 0.0-1.0 [facility] [address] [facility] [address] Nucleated Red Blood Cells October 05, 2021 12:55am 0.0 /100 WBC 0.0-1.[address] [address] Nucleated Red Blood Cells October 06, 2021 2:30am 0.0 /100 WBC 0.0-1.0 [facility] [address] [facility] [address] Prothrombin Time October 05, 2021 12:55am 10.4 seconds 9.3-12.1 [facility] [address] [facility] [address] Prothromb Time International Ratio October 05, 2021 12:55am 1.0 0.9-1.2 Reference Interval is for non-anticoagul ated patients. Suggested INR Therapeutic Range for Vitamin K antogonist therapy: LEVELS OF THERAPY INDICATIONS TARGET INR RANGE Standard Dose Venous Thrombosis, 2.0 - 3.0 Atrial Fibrillation, Pulmonary Embolism. High Dose Valvular Heart Disease, 2.5 - 3.5 Mechanical Heart, Intracardiac Thrombosis. [facility] [address] Activated Partial Thromboplast Time October 05, 2021 12:55am 25.1 seconds 23.9-32.8 [facility] [address] [facility] [address] Sodium Level October 05, 2021 12:55am 136 mEq/l 132-146 [facility] [address] [facility] [address] Sodium Level October 06, 2021 2:30am 134 mEq/l 132-146 [facility] [address] [facility] [address] Potassium Level October 05, 2021 12:55am 3.8 mEq/L 3.4-5.2 [facility] [address] [facility] [address] Potassium Level October 06, 2021 2:30am 3.5 mEq/L 3.4-5.2 [facility] [address] Chloride Level October 05, 2021 12:55am 103 mEq/L 93-109 [facility] [address] [facility] [address] Chloride Level October 06, 2021 2:30am 99 mEq/L 93-109 [facility] [address] [facility] [address] Carbon Dioxide Level October 05, 2021 12:55am 27.0 mEq/L 20.0-32.0 [facility] [address] Carbon Dioxide Level October 06, 2021 2:30am 24.0 mEq/L 20.0-32.0 [facility] [address] [facility] [address] Anion Gap October 05, 2021 12:55am 6 5-20 [facility] [address] Anion Gap October 06, 2021 2:30am 11 5-20 [facility] [address] [facility] [address] Blood Urea Nitrogen October 05, 2021 12:55am 12 mg/dL 08-12 [facility] [address] [facility] [address] Blood Urea Nitrogen October 06, 2021 2:30am 16 mg/dL 08-12 [facility] [address] [facility] [address] Creatinine October 05, 2021 12:55am 0.80 mg/dL 0.50-1.70 [facility] [address] [facility] [address] Creatinine October 06, 2021 2:30am 0.70 mg/dL 0.50-1.70 [facility] [address] [facility] [address] Estimated Creatinine Clearance October 05, 2021 12:55am 68 mL/min This value is calculated by Cockcroft Gault Equation using ideal body weight. This result is dependent on an accurate patient height and weight which is obtained from patients medical record. Cockcroft, D.W. and M.H. Gault. Prediction of creatinine clearance from serum creatinine. Nephron. 1975. 16(1):31-41. [facility] [address] [facility] [address] Estimated Creatinine Clearance October 06, 2021 2:30am 68 mL/min This value is calculated by Cockcroft Gault Equation using ideal body weight. This result is dependent on an accurate patient height and weight which is obtained from patients medical record. Cockcroft, D.W. and M.H. Gault. Prediction of creatinine clearance from serum creatinine. Nephron. 1975. 16(1):31-41. [facility] [address] [facility] [address] Estimated GFR () October 05, 2021 12:55am > 60 >=60 [facility] [address] [facility] [address] Estimated GFR () October 06, 2021 2:30am > 60 >=60 [facility] [address] [facility] [address] Estimated GFR (Non- October 05, 2021 12:55am [...] with decreased kidney function <=15 Kidney Failure [facility] [address] [facility] [address] Estimated GFR (Non- October 06, 2021 2:30am [...] with decreased kidney function <=15 Kidney Failure [facility] [address] [facility] [address] BUN/Creatinine Ratio October 05, 2021 12:55am 15 Ratio 6-20 [facility] [address] [facility] [address] BUN/Creatinine Ratio October 06, 2021 2:30am 23 Ratio 6-20 [facility] [address] [facility] [address] Glucose Level October 05, 2021 12:55am 104 mg/dL 68-100 [facility] [address] [facility] [address] Glucose Level October 06, 2021 2:30am 183 mg/dL 68-100 [facility] [address] [facility] [address] Calculated Osmolality October 05, 2021 12:55am 272 mOsm/kg 270-290 [facility] [address] [facility] [address] Calculated Osmolality October 06, 2021 2:30am 274 mOsm/kg 270-290 [facility] [address] [facility] [address] Calcium Level October 05, 2021 12:55am 9.3 mg/dL 8.0-10.4 [facility] [address] Calcium Level October 06, 2021 2:30am 9.3 mg/dL 8.0-10.4 [facility] [address] [facility] [address] Magnesium Level October 05, 2021 12:55am 1.9 mg/dL 1.6-2.3 [facility] [address] Total Bilirubin October 05, 2021 12:55am 0.6 mg/dL 0.1-1.2 [facility] [address] [facility] [address] Total Bilirubin October 06, 2021 2:30am 0.5 mg/dL 0.1-1.2 [facility] [address] [facility] [address] Aspartate Amino Transf (AST/SGOT) October 05, 2021 12:55am 25 IU/L -44 [facility] [address] [facility] [address] Aspartate Amino Transf (AST/SGOT) October 06, 2021 2:30am 27 IU/L -44 [facility] [address] [facility] [address] Alanine Aminotransferase (ALT/SGPT) October 05, 2021 12:55am 20 IU/L 5-40 [facility] [address] [facility] [address] Alanine Aminotransferase (ALT/SGPT) October 06, 2021 2:30am 20 IU/L 5-40 [facility] [address] [place] [address] Troponin I High Sensitivity October 05, 2021 [...] assay has not been fully characterized by [facility]. [facility] [address] [facility] [address] B-Type Natriuretic Peptide October 05, 2021 12:55am 69 pg/mL 0-100 [facility] [address] [facility] [address] Total Protein October 05, 2021 12:55am 7.2 g/dL 5.6-8.0 [facility] [address] [facility] [address] Total Protein October 06, 2021 2:30am 7.6 g/dL 5.6-8.0 [facility] [address] [facility] [address] Albumin October 05, 2021 12:55am 4.2 g/dL 3.2-5.[address] [address] Albumin October 06, 2021 2:30am 4.4 g/dL 3.2-5.[address] [address] Globulin October 05, 2021 12:55am 3.0 g/dL 2.0-3.[address] [address] Globulin October 06, 2021 2:30am 3.2 g/dL 2.0-3.[address] [address] Albumin/Globulin Ratio October 05, 2021 12:55am 1.4 0.9-1.[address] [address] Albumin/Globulin Ratio October 06, 2021 2:30am 1.4 0.9-1.8 [place] 8594255 Alkaline Phosphatase October 05, 2021 12:55am 71 U/L 34-[address] [address] Alkaline Phosphatase October 06, 2021 2:30am 66 U/L 34-[address] [address] Microbiology Results Procedure Source Result Collection Date/Time Result Date/Time Result Comment Performing Site SARS-CoV-2, Influenza & RSV (PCR) Nares October 05, 2021 1:57am [facility] [address] [place] [address] Diagnostic Imaging Reports Report Dictated Date/Time Dictated By Status Radiology Report October 05, 2021 1:12am Fabio Fernandez MD completed [address] [address] Patient Name: India Tapia Medical Record#: [id number] Address: [address] [place] [address] City/State/[place]: [place] [address]: Meena Fang DO Insurance: [facility] Dual Complete FULL /Age/Sex: 1945/76/F Self Pay Admit/Reg Date: 10/05/[address]: Isabell adair DO Location: ED.RH/ PCP: Fanny Marx MD Date of Service: 10/05/21 Order (s): XR chest 1V portable CPT Code: 22983 Report Number: [id number] Reason for Exam: Dyspnea XR chest 1V [...] 1:03am Insurance Providers Guarantor India Tapia Address [address] [place] [phone] Contact Info. Home Phone: Payer Policy Id Coverage Id Subscriber's Name Subscriber Id Effective Date Expiration Date [employer] ADV [id number] India Tapia [id number] [facility] Dual Complete FULL [id number] India Tapia [id number] [facility] Medicare [id number] India Tapia [id number] Self Pay Self N/A Encounters Encounter Location(s) Arrival/Admit Date Discharge/Depart Date Provider(s) Departed Emergency [facility] October 05, 2021 12:30am October 05, 2021 4:23am null Departed Emergency [facility] October 06, 2021 1:08am October 06, 2021 4:25am null Plan of Treatment Future Tests Future scheduled test information is unavailable Pending Tests Pending diagnostic test information is unavailable Future Visits Future appointment information is unavailable Referrals to Other Providers Reason for Referral Referral Start Date Provider Provider Contact Information Provider Address Fanny Marx MD Work Phone: [phone] [facility] [address] [facility] AIsaías Durand Work Phone : [address] [facility] [address] Olivia Douglass MD Work Phone: [phone] [facility] [address] [facility] [address] Fanny Marx MD Work Phone: [address] [facility] [address] Irena Koo MD Work Phone: [address] [facility] [address] [facility] [address] Lizeth Rivera MD Work Phone: [address] [facility] [address] Future Procedures Procedure Name Scheduled Date EKG ED Electrocardiogram October 06 1:52am Peripheral IV Insert/Manage October 06, 2021 1:52am Peripheral IV Insert/Manage October 05, 2021 12:39am Future Medications Future medication information is unavailable Patient Instructions ED RSV Infection (Bronchioli tis) ED Hypertension, To Be Confi rmed Goals Acute Goals Please follow-up with your [facility] care doctor Please follow-up with a [facility] care physician. You have been given the name of multiple primary care physicians. Please call the office and set up an appointment for follow-up after evaluation in the emergency department.
--- OUTSIDE RECORDS SUMMARY | 2023-07-28 10:34 | XMS_ITS | Continuity of Care Document ---
Author Name Unknown Address [address] [place] [address] Phone [facility] Address [address] [place] [address] Phone Care Team Providers Care Powerhouse Tender Name Role Phone MD Al Winston Primary Care Provider MD Randee Dior Attending Provider DO Ward Whittaker Emergency Provider [phone] Pcp-MD Luis Sparrow Primary Care Provider Unavailabl e Chief Complaint and Reason for Visit Chief Complaint M54.2 fall Allergies, Adverse Reactions, Alerts Allergen Type Severity Reaction Last Updated Verified Status Sulfa (Sulfonamide Antibiotics) Adverse Reaction Unknown Unknown September 25 4:57pm Yes Active Social History Smoking Status Status Start Date End Date Date of Observa tion Unknown if ever smoked Augus t 2022 4:57pm Observation Status Date of Observation Not September 16, 2022 Observation Status Observation Response Date of Response Living Situation Private Home October 05 12:35am Living Situation Private Home October 06 1:56am Living Situation Private Home April 02, 2022 1:19am Other Living Situation trailer April 02, 2022 5:40am Services Prior to Admission None Febr uary 2022 6:12pm Lives With Children April 02, 2 023 6:12pm Living Situation Private Home April 21, 2022 12:30am Living Situation Private Home September 25 5:39pm Additional Data Assigned Sex Female Problems Active Problems Medical Problem Onset Date Status Bradycardia Active Severe sepsis Active Sepsis Active Leg wound, right Active Colon polyps Active Fall Active Laceration of knee Active Inactive/Resolved Problems Medical Problem Onset Date Status RSV (respiratory syncytial virus infection) Resolved Chest pain Resolved Hypertension Resolved Medications Medication Status Dose Units Route Directions Qty Days St art Date End Date Instructions Lovastatin Discontin ued 40 MG PO DAILY [facility] 2017 12:00am Februa ry 2022 9:49am Paroxetine Hcl Discontin ued 50 MG PO DAILY [facility] 2017 12:00am Februa ry 2022 5:14pm Aripiprazole Discontin ued 5 MG PO ONCE [facility] 2017 12:00am Februa ry 2022 9:49am Prednisone [...] TWICE A DAY 14 7 y 2022 1:00am Februa ry 2022 1:34am Doxycycline Hyclate Active 100 MG PO EVERY 12 HOURS 28 14 September 25, 2022 12:00am Immunizations Immunization Event Date Not Given Reason Dose Number Environmental Web Crawler Lot Number Vaccine Information Statement (VIS) Detail Tetanus, Diphtheria, Pertussis (Tdap) April 02, 2022 [id number] Tetanus, Diphtheria, Pertussis (Tdap) September 25, 2022 [id number] Procedures Procedure Date Performed Status XR cervical spine 2V September 16, 2022 4:13pm comp leted XR knee BI 3V September 25, 2022 5:03pm complete d Relevant Diagnostic Tests and/or Laboratory Data Diagnostic Imaging Reports Report Dictated Date/Time Dictated By Status Radiology Report September 19, 2022 10:05am Jamie marina MD completed [place] [id number] Patient Name: India Tapia Medical Record#: [id number] Address: [address] [place] [address] City/State/[place]: [place] [address]: Randee Dior MD Insurance: [facility] Dual Complete FULL /Age/Sex: 1945/77/F Self Pay Admit/Reg Date: 09/16/[address]: Randee dietz MD Location: LAB.RH/ PCP: Al Winston MD Date of Service: 09/16/22 Order (s): XR cervical spine 2V CPT Code: 63135 Report Number: [id number] Reason for Exam: CERVICALGIA EXAMINATION: XR cervical spine 2V CLINICAL INDICATION: Female, 77 years old. CERVICALGIA COMPARISON: None FINDINGS: No scoliosis, the cervical lordosis is maintained. There is minimal anterior spondylitic subluxation of C4 and C5 of less than 2 mm. There is mild spon dylosis, with mild multilevel facet and uncovertebral joint arthropathy. There is mild narrowing of the C5-6 disc space, remaining disc space heights are normal. Trachea is midline and prevertebral soft tissues are normal. Pacemaker leads are present. IMPRESSION: Mild cervical spondylosis with degenerative disc disease Electronically signed by: Jamie Lamar MD 09/19/2022 9:05 AM CDT Dictated By: Jamie Lamar MD 09/19/22 100 Signed By: Jamie Lamar MD 09/19/22 1008 TD/TT: 09/19/22 100Tech: [id number] cc: TERESSA; ANA LUISA* Randee Dior MD; Al Winston MD Report Dictated Date/Time Dictated By Status Radiology Report September 25, 2022 6:12pm Jamie mars DO completed [place] [id number] Patient Name: India Tapia Medical Record#: [id number] Address: [address] [place] [address] City/State/Zip: [place] [address]: Cyril Whittaker DO Insurance: [facility] Dual Complete FULL /Age/Sex: 1945/77/F Self Pay Admit/Reg Date: 09/25/[address]: Yaima Bedolla Location: ED.RH/ PCP: Al Winston MD Date of Service: 09/25/22 Order (s): XR knee BI 3V CPT Code: 89425 Report Number: [id number] Reason for Exam: fall pain laceration EXAMINATION: XR knee BI 3V CLINICAL INDICATION/HISTORY: fall pain laceration. COMPARISON: None TECHNIQUE: 6 views FINDINGS/IMPRESSION: No evidence for acute fracture or dislocation of the bilateral knees. Moderate tricompartmental degenerative changes bilaterally. No joint effusion. Laceration and soft tissue swelling at the preseptal soft tissues bilaterally. Electronically signed by: Jamie Grey Jr., DO 09/25/2022 5:12 PM CDT Dictated By: Jamie Grey DO 09/25/221811 Signed By: Jamie Grey DO 09/25/221813 TD/TT: 09/25/221811Tech: [id number] cc: MIKE; ANA LUISA* Ester Morley PAC; Al Winston MD Vital Signs Vital Reading Result Reference Range Collection Date/Time Height 167.64 cm September 25 4:57pm Weight 81.64 kg September 25 4:57pm Body Temperature 97.7 [degF] 97.6-99.6 September 25, 2022 4:57pm Heart Rate 86 /min 60-90 September 25 4:57pm Respiratory rate 18 /min 12-September 25, 2022 4:57pm Oxygen saturation by Pulse oximetry 97 % 95-100 September 25, 2022 4:5 7pm BP Systolic 143 mm[Hg] 90-140 September 25 4:57pm BP Diastolic 67 mm[Hg] 60-90 September 25 4:57pm BMI (Body Mass Index) 29.0 kg/m2 September 25, 2022 4:57pm Advance Directives Advance Directive Response Recorded Date/ Time Advance Directives No October 05, 2021 1:03am Health Care Proxy No October 05, 2 022 1:03am Advance Directives No October 06, 2021 2:05am Health Care Proxy No October 06, 2 022 2:05am Advance Directives No March 7:34pm Health Care Proxy No April 02, 2022 6:12pm Advance Directives No April 21 12:10am Health Care Proxy No April 21 12:10am Advance Directives No September 25, 2 023 6:19pm Health Care Proxy No September 25 6:19pm Insurance Providers Guarantor India Tapia Address [address] [place] [phone] Contact Info. Home Phone: Payer Policy Id Coverage Id Subscriber's Name Subscriber Id Effective Date Expiration Date [employer] Medicare ADV [id number] India Tapia [id number] [facility] Dual Complete FULL [id number] India Tapia [id number] [employer] Medicare [id number] India Tapia [id number] Self Pay Self N/A Encounters Encounter Location(s) Arrival/Admit Date Discharge/Depart Date Provider(s) Departed Referred [facility] [place] September 16, 2022 4:01pm September 16, 2022 4:02pm Randee Dior MD Departed Emergency [facility] September 25, 2022 4:53pm September 25, 2022 6:37pm null Plan of Treatment Future Tests Future [...] Provider Address Fanny wilkerson MD Work Phone: [address] [place] [address] Irena Koo MD Work Phon e: [address] [facility] [address] [facility] [address] Lizeth Rivera MD Work Phone: [address] [facility] [address] Fanny wilkerson MD Work Phone: [facility] [address] [facility] AIsaías Durand Work Phone : [address] [facility] [address] Olivia Douglass MD Work Tuyet ne: [address] [facility] [address] [facility] [address] Appointment on Saturday, April 16, 2022 at 9:00 AM [facility] Work Phone: [address] [facility] [address] [facility], [address] Al Winston MD Work Phone : [address] [facility] [address] Pedro Bryant am, MD Work Phone: [address] [place] [address] Followup with [facility] forming machine adjuster. Al Winston MD Work Phone : [address] [place] [address] Al Winston MD Work Phone : [address] [facility] [address] Salty Croft MD Work Phone: [address] [facility] [address] Future Procedures Procedure Name Ordered Date Scheduled Date Peripheral IV Insert/Manage October 05, 2021 12 :38am October 05, 2021 12:39am Peripheral IV Insert/Manage October 06, 2021 1: 52am October 06, 2021 1:52am Hospital Level of Care April 02, 2022 12:53 am April 02, 2022 12:53am Case Management Consult April 02, 2022 3:38 pm April 02, 2022 3:38pm Discharge April 09, 2022 5:21pm Febru samreen2022 5:21pm Patient Transfer (from unit to unit) [...] Fluid Quality Measure April 02, 2022 1:00am February 10th, 2023 1:00am Patient Preference for Pain Management April [...] se ED Laceration, Old: Not Sutu red Goals Acute Goals Please follow-up with the or thopedist to specialist in the next 2 days change the dressing every 2 days will be discharged with antibiotics take medication as prescribed return if symptoms not improve or worsen
--- OUTSIDE RECORDS SUMMARY | 2023-07-28 10:34 | XMS_ITS | Continuity of Care Document ---
Author Name Unknown Address [address] [place] [address] Phone [facility] Address [address] [place] [address] Phone Care Team Providers Care Diamond Polisher Name Role Phone MD Al Winston Primary Care Provider MD Randee Dior Attending Provider DO Ward Whittaker Emergency Provider Pcp-MD Luis Sparrow Primary Care Provider Unavailabl [...] Lovastatin Discontin ued 40 MG PO DAILY [facility] 2017 12:00am Februa ry 2022 9:49am Paroxetine Hcl Discontin ued 50 MG PO DAILY [facility] 2017 12:00am Februa ry 2022 5:14pm Aripiprazole Discontin ued 5 MG PO ONCE [facility] 2017 12:00am Februa ry 2022 9:49am Prednisone [...] Event Date Not Given Reason Dose Number Rotary Envelope Machine Operator Lot Number Vaccine Information Statement (VIS) Detail Tetanus, Diphtheria, Pertussis (Tdap) April 02, 2022 [id number] Tetanus, Diphtheria, Pertussis (Tdap) September 25, 2022 [id number] Procedures Procedure Date Performed Status XR cervical spine 2V September 16, 2022 4:13pm comp leted XR knee BI 3V September 25, 2022 5:03pm complete d Relevant Diagnostic Tests and/or Laboratory Data Diagnostic Imaging Reports Report Dictated Date/Time Dictated By Status Radiology Report September 19, 2022 10:05am Jamie marina MD completed [place] [id number] Patient Name: India Tapia Medical Record#: [id number] Address: [address] [place] [address] City/State/[place]: [place] [address]: Randee Dior MD Insurance: [facility] Dual Complete FULL /Age/Sex: 1945/77/F Self Pay Admit/Reg Date: 09/16/[address]: Randee dietz MD Location: LAB.RH/ PCP: Al Winston MD Date of Service: 09/16/22 Order (s): XR cervical spine 2V CPT Code: 86531 Report Number: [id number] Reason for Exam: CERVICALGIA EXAMINATION: XR cervical [...] 25, 2022 6:12pm Jamie mars DO completed [place] [id number] Patient Name: India Tapia Medical Record#: [id number] Address: [address] [place] [address] City/State/[place] [address]: Cyril Whittaker DO Insurance: [facility] Dual Complete FULL /Age/Sex: 1945/77/F Self Pay Admit/Reg Date: 09/25/[address]: Yaima Bedolla Location: ED.RH/ PCP: Al Winston MD Date of Service: 09/25/22 Order (s): XR knee BI 3V CPT Code: 89337 Report Number: [id number] Reason for Exam: fall pain laceration EXAMINATION: [...] 6:19pm Insurance Providers Guarantor India Tapia Address [address] [place] [phone] Contact Info. Home Phone: Payer Policy Id Coverage Id Subscriber's Name Subscriber Id Effective Date Expiration Date [employer] Medicare ADV [id number] India Tapia [id number] [facility] Dual Complete FULL [id number] India Tapia [id number] [facility] Medicare [id number] India Tapia [id number] Self Pay Self N/A Encounters Encounter Location(s) Arrival/Admit Date Discharge/Depart Date Provider(s) Departed Referred [facility] [place] September 16, 2022 4:01pm September 16, 2022 4:02pm Randee Dior MD Departed Emergency [facility] September 25, 2022 4:53pm September 25, 2022 [...] Provider Address Fanny wilkerson MD Work Phone: [address] [place] [address] Irena Koo MD Work Phon e: [address] [facility] [address] [facility] [address] Lizeth Rivera MD Work Phone: [address] [facility] [address] Fanny wilkerson MD Work Phone: [facility]7 [facility] [address] [facility] AIsaías Durand Work Phone : [address] [facility] [address] Olivia Douglass MD Work Tuyet ne: [address] [facility] [address] [facility] [address] Appointment on Saturday, April 16, 2022 at 9:[address] [facility] Work Phone: [address] [facility] [address] 3 [facility], [address] Al Winston MD Work Phone : [address] [facility] [address] Pedro Bryant am, MD Work Phone: [address] [place] [address] Followup with [facility] director biologics. Al Winston MD Work Phone : [address] [place] [address] Al Winston MD Work Phone : [address] [facility] [address] Salty Croft MD Work Phone: [address] [facility] [address] Future Procedures Procedure Name Ordered Date Scheduled [...]
--- OUTSIDE RECORDS SUMMARY | 2023-07-28 10:34 | XMS_ITS | Continuity of Care Document ---
Author Name Unknown Address [address] [place] [address] Phone [facility] Address [address] [place] [address] Phone Support Name Relationship Address Phone Francis Tapia Spouse [address] [place] [address] Gus Jovel Primary Care Provider [address] [place] [address] Katt Cedeno Attending Provider [address] [place] [address] Allergies, Adverse Reactions, Alerts Allergen Type Severity [...] May 15, 2019 9:49am 6.52 K/uL 4.30-10.00 [facility] [facility] [address] Red Blood Count May 15, 2019 9:49am 5.01 M/uL 3.80-5.00 [facility] [facility] [address] Hemoglobin May 15, 2019 9:49am 12.7 gm/dL 12.0-15.0 [facility] [facility] [address] Hematocrit May 15, 2019 9:49am 41.3 % 35.0-45.0 [facility], [address] [facility] [address] Mean Corpuscular Volume May 15, 2019 9:49am 82.4 fL 85.0-100.0 [facility], [address] [facility] [address] Mean Corpuscular Hemoglobin May 15, 2019 9:49am 25.3 pg 27.0-33.0 [facility], [address] [place] [address] Mean Corpuscular Hemoglobin Concent May 15, 2019 9:49am 30.8 gm/dl 32.0-36.0 [facility], [address] [place] [address] Red Cell Distribution Width May 15, 2019 9:49am 13.7 % 11.5-14.5 [facility], [address] [place] [address] Platelet Count May 15, 2019 9:49am 279 K/uL 150-400 [facility], [address] [place] [address] Nucleated Red Blood Cells May 15, 2019 9:49am 0.0 /100 WBC 0.0-3.0 [facility], [address] [place] [address] Sodium Level May 15, 2019 9:49am 141 mEq/L 132-146 [facility], [address] [place] [address] Potassium Level May 15, 2019 9:49am 3.9 mEq/L 3.4-5.2 [facility], [address] [place] [address] Chloride Level May 15, 2019 9:49am 106 mEq/L 93-109 [facility], [address] [place] [address] Carbon Dioxide Level May 15, 2019 9:49am 26.0 mEq/L 20.0-35.8 [facility], [address] [place] [address] Anion Gap May 15, 2019 9:49am 9 5-20 [facility], [address] [place] [address] Blood Urea Nitrogen May 15, 2019 9:49am 14 mg/dL 6-22 [facility], [address] [facility] [address] Creatinine May 15, 2019 9:49am 0.7 mg/dL 0.5-1.7 [facility], [address] [facility] [address] Estimated GFR () May 15, 2019 9:49am > 60 [facility] [address] [facility] [address] Estimated GFR (Non- May 15, 2019 9:49am > 60 National Kidney Foundation Guidelines:Inte rpretation of GFR should be based upon values stable for 3 months or more and in relation to clinical history and presenting conditions. This formula is not applicable for patients <18 years of age.GFR: Interpretation: >=60 Normal kidney [id number] Chronic kidney disease with decreased kidney function<=15 Kidney Failure [facility], [address] [place] [address] BUN/Creatinine Ratio May 15, 2019 9:49am 20 Ratio 6-20 [facility], [address] [place] [address] Glucose Level May 15, 2019 9:49am 105 mg/dL 68-100 [facility], [address] [place] [address] Calculated Osmolality May 15, 2019 9:49am 282 mOsm/kg 270-290 [facility], [address] [place] [address] Calcium Level May 15, 2019 9:49am 9.2 mg/dL 8.0-10.4 [facility], [address] [place] [address] Total Bilirubin May 15, 2019 9:49am 0.4 mg/dL 0.1-1.2 [facility], [facility] [address] Aspartate Amino Transf (AST/SGOT) May 15, 2019 9:49am 26 U/L 4-44 [facility], [facility] [address] Alanine Aminotransferase (ALT/SGPT) May 15, 2019 9:49am 21 U/L 5-40 ALT result may vary (falsely depressed or elevated) in patients taking sulfasalazin (Azulfidine) or sulfapyridine medications. [facility], [facility] [address] Total Protein May 15, 2019 9:49am 7.1 gm/dl 5.6-8.0 [facility], [address] [facility] [address] Albumin May 15, 2019 9:49am 4.7 g/dL 3.2-5.2 [facility], [address] [facility] [address] Globulin May 15, 2019 9:49am 2.4 g/dL 2.0-3.9 [facility], [address] [place] [address] Albumin/Globulin Ratio May 15, 2019 9:49am 2.0 0.9-2.2 [facility], [address] [place] [address] Triglycerides Level May 15, 2019 9:49am 226 mg/dL 21-150 [facility], [address] [place] [address] Cholesterol Level May 15, 2019 9:49am 162 mg/dL 100-200 The [place] [employer] desired levels for Cholesterol are less than 200 mg/dL. [facility], [address] [place] [address] LDL Cholesterol, Calculated May 15, 2019 9:49am 71.8 mg/dL 72-100 [facility], [address] [place] [address] HDL Cholesterol May 15, 2019 9:49am 45.0 mg/dL 39.0-60.0 [facility], [facility] [address] Cholesterol/HDL Ratio May 15, 2019 9:49am 3.6 % CHOL/HDL Risk FactorsMales Females3.4 or Less 3.3 or Less =1/2 Average Risk4.97 4.44 =Average Risk9.55 7.05 =Twice Average Risk23.6 11.04 =Three Times Average RiskRisk Factors taken from [place] Studies performed byDr. Sree Caballero. [facility], [address] [facility] [address] Alkaline Phosphatase May 15, 2019 9:49am 96 U/L 34-128 [facility], [address] [place] [address] Thyroid Stimulating Hormone (Reflex May 15, 2019 9:49am 3.83 uIU/mL 0.300-4.50 0 3rd Generation TSHReference range based on recommendation from the [place] Association of Clinical Oil Gauger s.Studies indicate that results between 3.0 and [...] no interference with TSH3 Ultra test results. [facility], [address] [place] [address] Diagnostic Imaging Reports Report Dictated Date/Time Dictated By Status Radiology Report June 05, 2018 4:19pm Kimberlyn Hall MD completed [place] [id number] Patient Name: Yohana Tapial Stephy Medical Record#: [id number] Address: [address] [place] [address] City/State/Zip: [place] [address]: Randee Ying TREASURER Insurance: [employer] Medicare /Age/Sex: 1945/72/F Self Pay Admit/Reg Date: 06/05/[address]: Yaa Abdul Location: [facility]/ PCP: Gus Jovel MD Date of Service: 06/05/18 Order (s): CT head/brain wo con CPT Code: 38287 Report Number: [id number] Reason for Exam: HEADACHE..CHANGES IN VISION..SPEECH PROBLEM India Tapia [id number] EXAM: CT head/brain wo con COMPARISON: 02/03/2015. INDICATION: Headaches. Vision and speech problem. TECHNIQUE: The axial images through the brain were obtained from the skull base to the vertex at 5 mm slice thickness without IV contrast enhancement. The CT scanners at [facility] are equipped with Automatic Exposure Control [...] 4:19 PM Dictated By: Kimberlyn Whitley MD 06/05/181618 Signed By: Kimberlyn Whitley MD 06/05/18 162 TD/TT: 06/05/181618Tech: [id number] cc: Gus Jovel MD; Randee Ying APRN* Chief Complaint and Reason for Visit Chief Complaint PERIPHERAL,HYPERLIPI DEMIA,DEPRESSION,IBS Encounters Encounter Location(s) Arrival/Admit Date Discharge/Depart Date Provider(s) Departed [facility] [place] June 05, 2018 3:27pm June 05, 2018 3:28pm Randee Ying APRN Departed [facility] [place] May 15, 2019 9:35am May 15, 2019 9:36am Katt Cedeno APRN Assessments No Assessments Information Available Functional Status No Functional Status information available Goals Goals may be documented in an alternate section. Mental Status No Mental Status Information Available Medical Equipment No Medical Equipment Information available Insurance Providers Guarantor [place] Stephy Ashe Address [address] [place] [phone] Contact Info. Home Phone: Payer Policy Id Coverage Id Subscriber's Name Subscriber Id Effective Date Expiration Date [employer] Medicare [id number] Self Pay Self N/A Social History Smoking Status Status Date of Observation Never smoked tobacco (finding) November 01, 2017 7:18pm Assigned Sex Female
--- OUTSIDE RECORDS SUMMARY | 2023-07-28 10:34 | XMS_ITS | Continuity of Care Document ---
Author Name Unknown Address [address] [place] [address] Phone [facility] Address [address] [place] [address] Phone Care Team Providers Care Warehouse Technician Name Role Phone DO Isabell Fang Emergency Provider MD Fanny Marx Primary Care Provider [phone] Chief Complaint and Reason for Visit Chief [...] October 05, 2021 12:55am 8.61 K/uL 4.30-10.00 [facility] [address] [facility] [address] Red Blood Count October 05, 2021 12:55am 4.70 M/uL 3.80-5.00 [facility] [address] [facility] [address] [address] Hemoglobin October 05, 2021 12:55am 12.9 gm/dL 12.0-15.0 [facility] [address] [facility] [address] Hematocrit October 05, 2021 12:55am 39.2 % 35.0-45.0 [facility] [address] [facility] [address] [address] Mean Corpuscular Volume October 05, 2021 12:55am 83.4 fL 85.0-100.0 [facility] [address] [facility] [address] [address] Mean Corpuscular Hemoglobin October 05, 2021 12:55am 27.4 pg 27.0-33.0 [facility] [address] [facility] [address] [address] Mean Corpuscular Hemoglobin Concent October 05, 2021 12:55am 32.9 gm/dL 32.0-36.0 [facility] [address] [facility] [address] [address] Red Cell Distribution Width October 05, 2021 12:55am 13.2 % 11.5-14.5 [facility] [address] [facility] [address] [address] Platelet Count October 05, 2021 12:55am 249 K/uL 150-400 [facility] [address] [facility] [address] [address] Absolute Neutrophil October 05, 2021 12:55am 4.4 K/uL 2.0-7.0 [facility] [address] [facility] [address] [address] Immature Granulocyte % (Auto) October 05, 2021 12:55am 0.3 % 0-1 [facility] [address] [facility] [address] [address] Neutrophils (%) (Auto) October 05, 2021 12:55am 51.5 % 45.0-75.0 [facility] [address] [address] Lymphocytes (%) (Auto) October 05, 2021 12:55am 33.2 % 20.0-40.0 [facility] [address] [facility] [address] [address] Monocytes (%) (Auto) October 05, 2021 12:55am 11.7 % 1.0-13.1 [facility] [address] [facility] [address] [address] Eosinophils (%) (Auto) October 05, 2021 12:55am 2.8 % 0-5 [facility] [address] [facility] [address] [address] Basophils (%) (Auto) October 05, 2021 12:55am 0.5 % 0.0-1.0 [facility] [address] [facility] [address] [address] Nucleated Red Blood Cells October 05, 2021 12:55am 0.0 /100 WBC 0.0-1.0 [facility] [address] [facility] [address] [address] Prothrombin Time October 05, 2021 12:55am 10.4 seconds 9.3-12.1 [facility] [address] [facility] [address] [address] Prothromb Time International Ratio October 05, 2021 12:55am 1.0 0.9-1.2 Reference Interval is for non-anticoagul ated patients. Suggested INR Therapeutic Range for Vitamin K antogonist therapy: LEVELS OF THERAPY INDICATIONS TARGET INR RANGE Standard Dose Venous Thrombosis, 2.0 - 3.0 Atrial Fibrillation, Pulmonary Embolism. High Dose Valvular Heart Disease, 2.5 - 3.5 Mechanical Heart, Intracardiac Thrombosis. [facility] [address] [address] Activated Partial Thromboplast Time October 05, 2021 12:55am 25.1 seconds 23.9-32.8 [facility] [address] [facility] [address] [address] Sodium Level October 05, 2021 12:55am 136 mEq/l 132-146 [facility] [address] [facility] [address] [address] Potassium Level October 05, 2021 12:55am 3.8 mEq/L 3.4-5.2 [facility] [address] [facility] [address] [address] Chloride Level October 05, 2021 12:55am 103 mEq/L 93-109 [facility] [address] [address] Carbon Dioxide Level October 05, 2021 12:55am 27.0 mEq/L 20.0-32.0 [facility] [address] [facility] [address] [address] Anion Gap October 05, 2021 12:55am 6 5-20 [facility] [address] [facility] [address] [address] Blood Urea Nitrogen October 05, 2021 12:55am 12 mg/dL 6- [facility] [address] [facility] [address] [address] Creatinine October 05, 2021 12:55am 0.80 mg/dL 0.50-1.70 [facility] [address] [facility] [address] [address] Estimated Creatinine Clearance October 05, 2021 12:55am 68 mL/min This value is calculated by Cockcroft Gault Equation using ideal body weight. This result is dependent on an accurate patient height and weight which is obtained from patients medical record. Pratibhaofhanny, D.W. and M.H. Gatravis. Prediction of creatinine clearance from serum creatinine. Nephron. 1976. 16(1):31-41. [facility] [address] [facility] [address] [address] Estimated GFR () October 05, 2021 12:55am > 60 >=60 [facility] [address] [facility] [address] [address] Estimated GFR (Non- October 05, 2021 12:55am [...] with decreased kidney function <=15 Kidney Failure [facility] [address] [address] BUN/Creatinine Ratio October 05, 2021 12:55am 15 Ratio -20 [facility] [address] [facility] [address] [address] Glucose Level October 05, 2021 12:55am 104 mg/dL 68-100 [facility] [address] [facility] [address] [address] Calculated Osmolality October 05, 2021 12:55am 272 mOsm/kg 270-290 [facility] [address] [facility] [address] Calcium Level October 05, 2021 12:55am 9.3 mg/dL 8.0-10.4 [facility] [address] [facility] [address] Magnesium Level October 05, 2021 12:55am 1.9 mg/dL 1.6-2.3 [facility] [address] [facility] [address] Total Bilirubin October 05, 2021 12:55am 0.6 mg/dL 0.1-1.2 [facility] [address] [facility] [address] Aspartate Amino Transf (AST/SGOT) October 05, 2021 12:55am 25 IU/L 4-44 [facility] [address] [facility] [address] Alanine Aminotransferase (ALT/SGPT) October 05, 2021 12:55am 20 IU/L 5-40 [facility] [address] [facility] [address] Troponin I High Sensitivity October 05, 2021 [...] has not been fully characterized by [facility] [place]. [facility] [address] [facility] [address] B-Type Natriuretic Peptide October 05, 2021 12:55am 69 pg/mL 0-100 [facility] [address] [facility] [address] Total Protein October 05, 2021 12:55am 7.2 g/dL 5.6-8.0 [facility] [address] [place] [address] Albumin October 05, 2021 12:55am 4.2 g/dL 3.2-5.[address] [address] Globulin October 05, 2021 12:55am 3.0 g/dL 2.0-3.9 [place] [id number] Albumin/Globulin Ratio October 05, 2021 12:55am 1.4 0.9-[address] [address] Alkaline Phosphatase October 05, 2021 12:55am 71 U/L 34-[address] [address] Microbiology Results Procedure Source Result Collection Date/Time Result Date/Time Result Comment Performing Site SARS-CoV-2, Influenza & RSV (PCR) Nares October 05, 2021 1:57am [facility] [address] [place], [place] [id number] Diagnostic Imaging Reports Report Dictated Date/Time Dictated By Status Radiology Report October 05, 2021 1:12am Fabio Fernandez MD completed [place] [id number] Patient Name: India Tapia Medical Record#: [id number] Address: [address] [place] [address] City/State/Zip: [place] [address]: Meena Fang DO Insurance: [facility] Dual Complete FULL /Age/Sex: 1945/76/F Self Pay Admit/Reg Date: 10/05/[address]: Isabell adair DO Location: ED.RH/ PCP: Fanny Marx MD Date of Service: 10/05/21 Order (s): XR chest 1V portable CPT Code: 21981 Report Number: [id number] Reason for Exam: Dyspnea XR chest 1V [...] 1:03am Insurance Providers Guarantor India Tapia Address [address] [place] [phone] Contact Info. Home Phone: Payer Policy Id Coverage Id Subscriber's Name Subscriber Id Effective Date Expiration Date [employer] ADV [id number] India Tapia [id number] [facility] Dual Complete FULL [id number] India Tapia [id number] [employer] Medicare [id number] India Tapia [id number] Self Pay Self N/A Encounters Encounter Location(s) Arrival/Admit Date Discharge/Depart Date Provider(s) Departed Emergency [facility] October 05, 2021 12:30am October 05, 2021 4:23am null Plan of Treatment Future Tests Future scheduled test information is unavailable Pending Tests Test Name Date ordered Troponin I High Sensitivity October 05, 2021 3:50am Future Visits Future appointment information is unavailable Referrals to Other Providers Reason for Referral Referral Start Date Provider Provider Contact Information Provider Address Fanny Marx MD Work Phone: [address] [facility] [address] Irena Koo MD Work Phone: [address] [facility] [address] Lizeth Rivera MD Work Phone: [phone] [facility] [address] [facility] [address] Future Procedures Procedure Name Scheduled Date EKG ED Electrocardiogram October 05 12:39am Troponin I High Sensitivity October 05, 2021 3:50am UA, Urinalysis Rflx Cult/Sedmt October 052021 12:39am Peripheral IV Insert/Manage October 05, 2021 12:39am Future Medications Future medication information is unavailable Patient Instructions ED RSV Infection (Bronchi[place] tis) Goals Acute Goals Please follow-up with your [facility] doctor
[2023-07-28 10:35] VITALS: BP 161/82; PULSE 91; RESP 20; TEMP 36.8; O2SAT 96; BMI 30.3
--- OUTSIDE RECORDS SUMMARY | 2023-07-28 10:35 | XMS_ITS | Continuity of Care Document ---
Author Name Unknown Address [address] [place] [address] Phone [facility] Address [address] [place] [address] Phone Care Team Providers Care Cross Tie Cutter Name Role Phone MD Addy [facility] Emergency Provider [phone] DO Salty Blair Attending Provider [phone] MD Gail Ricketts Other Provider MD [facility] Provider MD Pedro Phelps Other Provider MD George Flor Attending Provider MD Erendira Hyrum Emergency Provider Chief Complaint and Reason for [...] Lovastatin Discontin ued 40 MG PO DAILY [facility] er 2017 11:00pm Februa ry 2022 8:49am Paroxetine Hcl Discontin ued 50 MG PO DAILY [facility] 2017 11:00pm Februa ry 2022 4:14pm Aripiprazole Discontin ued 5 MG PO ONCE [facility] er 2017 11:00pm Februa ry 2022 8:49am [...] Event Date Not Given Reason Dose Number Pony Ride Operator Lot Number Vaccine Information Statement (VIS) Detail Tetanus, Diphtheria, Pertussis (Tdap) April 02, 2022 [id number] Procedures Procedure Date Performed Status CT angio [...] April 09, 2022 4:20am 8.70 K/uL 4.30-10.00 [facility] [id number] [address] [place] [address] White Blood Count April 20, 2022 11:19pm 7.89 K/uL 4.30-10.00 [facility] [id number] [address] [place] [address] Red Blood Count April 09, 2022 4:20am 4.09 M/uL 3.80-5.00 [facility] [id number] [address] [facility] [address] Red Blood Count April 20, 2022 11:19pm 4.15 M/uL 3.80-5.00 [facility] [id number] [address] [facility] [address] Hemoglobin April 09, 2022 4:20am 11.3 gm/dL 12.0-15.0 [facility] [id number] [address] [facility] [address] Hemoglobin April 20, 2022 11:19pm 11.5 gm/dL 12.0-15.0 [facility] [id number] [address] [facility] [address] Hematocrit April 09, 2022 4:20am 36.2 % 35.0-45.0 [facility] [id number] [address] [facility] [address] Hematocrit April 20, 2022 11:19pm 35.1 % 35.0-45.0 [facility] [id number] [address] [facility] [address] Mean Corpuscular Volume April 09, 2022 4:20am 88.5 fL 85.0-100.0 [facility] [id number] [address] [facility] [address] Mean Corpuscular Volume April 20, 2022 11:19pm 84.6 fL 85.0-100.0 [facility] [id number] [address] [facility] [address] Mean Corpuscular Hemoglobin April 09, 2022 4:20am 27.6 pg 27.0-33.0 [facility] [id number] [address] [facility] [address] Mean Corpuscular Hemoglobin April 20, 2022 11:19pm 27.7 pg 27.0-33.0 [facility] [id number] [address] [facility] [address] Mean Corpuscular Hemoglobin Concent April 09, 2022 4:20am 31.2 gm/dL 32.0-36.0 [facility] [id number] [address] [facility] [address] Mean Corpuscular Hemoglobin Concent April 20, 2022 11:19pm 32.8 gm/dL 32.0-36.0 [facility] [id number] [address] [facility] [address] Red Cell Distribution Width April 09, 2022 4:20am 13.0 % 11.5-14.5 [facility] [id number] [address] [facility] [address] Red Cell Distribution Width April 20, 2022 11:19pm 13.7 % 11.5-14.5 [facility] [id number] [address] [facility] [address] Platelet Count April 09, 2022 4:20am 238 K/uL 150-400 [facility] [id number] [address] [facility] [address] Platelet Count April 20, 2022 11:19pm 246 K/uL 150-400 [facility] [id number] [address] [facility] [address] Absolute Neutrophil April 09, 2022 4:20am 5.4 K/uL 2.0-7.0 [facility] [id number] [address] [facility] [address] Absolute Neutrophil April 20, 2022 11:19pm 4.0 K/uL 2.0-7.0 [facility] [id number] [address] [facility] [address] Immature Granulocyte % (Auto) April 09, 2022 4:20am 0.6 % 0-1 [facility] [id number] [address] [facility] [address] Immature Granulocyte % (Auto) April 20, 2022 11:19pm 0.3 % 0-1 [facility] [id number] [address] [facility] [address] Neutrophils (%) (Auto) April 09, 2022 4:20am 62.9 % 45.0-75.0 [facility] [id number] [address] [facility] [address] Neutrophils (%) (Auto) April 20, 2022 11:19pm 51.9 % 45.0-75.0 [facility] [id number] [address] [facility] [address] Lymphocytes (%) (Auto) April 09, 2022 4:20am 21.3 % 20.0-40.0 [facility] [id number] [address] [facility] [address] Lymphocytes (%) (Auto) April 20, 2022 11:19pm 32.4 % 20.0-40.0 [facility] [id number] [address] [facility] [address] Monocytes (%) (Auto) April 09, 2022 4:20am 11.4 % 1.0-13.1 [facility] [id number] [address] [facility] [address] Monocytes (%) (Auto) April 20, 2022 11:19pm 11.3 % 1.0-13.1 [facility] [id number] [address] [facility] [address] Eosinophils (%) (Auto) April 09, 2022 4:20am 3.0 % 0-5 [facility] [id number] [address] [facility] [address] Eosinophils (%) (Auto) April 20, 2022 11:19pm 3.5 % 0-5 [facility] [id number] [address] [facility] [address] Basophils (%) (Auto) April 09, 2022 4:20am 0.8 % 0.0-1.0 [facility] [id number] [address] [facility] [address] Basophils (%) (Auto) April 20, 2022 11:19pm 0.6 % 0.0-1.0 [facility] [id number] [address] [facility] [address] Nucleated Red Blood Cells April 09, 2022 4:20am 0.0 /100 WBC 0.0-1.0 [facility] [id number] [address] [facility] [address] Nucleated Red Blood Cells April 20, 2022 11:19pm 0.0 /100 WBC 0.0-1.0 [facility] [id number] [address] [facility] [address] Erythrocyte Sedimentation Rate April 08, 2022 5:14am 27 mm 0-15 [facility] [id number] [address] [facility] [address] Hemoglobin A1c April 01, 2022 8:49pm 5.5 % 4.0-6.0 Interpretation Guidelines: Non-Diabetic: 4.0-6.0 % Good Diabetic Control: 6.0-8.0 % Diabetic Action Suggested: >8.0 % [facility] [id number] [address] [facility] [address] Prothrombin Time April 01, 2022 8:49pm 10.7 seconds 9.3-12.1 [facility] [id number] [address] [facility] [address] Prothromb Time International Ratio April 01, 2022 8:49pm 1.0 0.9-1.2 Reference Interval is for non-anticoagulat ed patients.Suggest ed INR Therapeutic Range for Vitamin K antogonist therapy:LEVELS OF THERAPY INDICATIONS TARGET INR RANGEStandard Dose Venous Thrombosis, 2.0 - 3.0 Atrial Fibrillation, Pulmonary Embolism. High Dose Valvular Heart Disease, 2.5 - 3.5 Mechanical Heart, Intracardiac Thrombosis. [facility] [id number] [address] [facility] [address] Activated Partial Thromboplast Time April 01, 2022 8:49pm 25.8 seconds 23.9-32.8 [facility] [id number] [address] [place] [address] Anti-Xa Level April 01, 2022 8:49pm < 0.10 IU/mL 0.30-0.70 [facility] [id number] [address] [place] [address] Urine Color April 01, 2022 10:52pm Yellow Yellow [facility] [id number] [address] [facility] [address] Urine Clarity April 01, 2022 10:52pm Clear Clear [facility] [id number] [address] [facility] [address] Urine pH April 01, 2022 10:52pm 7.5 5.0-8.0 [facility] [id number] [address] [facility] [address] Urine Specific [place] April 01, 2022 10:52pm <= 1.005 1.005-1.03 0 [facility] [id number] [address] [place] [address] Urine Blood April 01, 2022 10:52pm Negative mg/dL Negative [facility] [id number] [address] [facility] [address] Urine Protein April 01, 2022 10:52pm Negative mg/dl Negative [facility] [id number] [address] [facility] [address] Urine Glucose (UA) April 01, 2022 10:52pm Negative mg/dL Negative [facility] [id number] [address] [facility] [address] Urine Ketones April 01, 2022 10:52pm Negative mg/dL Negative [facility] [id number] [address] [facility] [address] Urine Nitrate April 01, 2022 10:52pm Negative Negative [facility] [id number] [address] [facility] [address] Urine Bilirubin April 01, 2022 10:52pm Negative mg/dL Negative [facility] [id number] [address] [facility] [address] Urine Urobilinogen April 01, 2022 10:52pm 1.0 E.U./dL 0.2 [facility] [id number] [address] [facility] [address] Urine Leukocyte Esterase April 01, 2022 10:52pm Trace mg/dL Negative [facility] [id number] [address] [facility] [address] Sodium Level April 09, 2022 4:20am 139 mEq/l 132-146 [facility] [id number] [address] [facility] [address] Sodium Level April 20, 2022 11:19pm 136 mEq/l 132-146 [facility] [id number] [address] [facility] [address] Potassium Level April 09, 2022 4:20am 3.9 mEq/L 3.4-5.2 [facility] [id number] [address] [facility] [address] Potassium Level April 20, 2022 11:19pm 3.6 mEq/L 3.4-5.2 [facility] [id number] [address] [facility] [address] Chloride Level April 09, 2022 4:20am 106 mEq/L 93-109 [facility] [id number] [address] [facility] [address] Chloride Level April 20, 2022 11:19pm 100 mEq/L 93-109 [facility] [id number] [address] [facility] [address] Carbon Dioxide Level April 09, 2022 4:20am 25.0 mEq/L 20.0-32.0 [facility] [id number] [address] [facility] [address] Carbon Dioxide Level April 20, 2022 11:19pm 27.0 mEq/L 20.0-32.0 [facility] [id number] [address] [facility] [address] Anion Gap April 09, 2022 4:20am 8 5-20 [facility] [id number] [address] [facility] [address] Anion Gap April 20, 2022 11:19pm 9 5-20 [facility] [id number] [address] [facility] [address] Blood Urea Nitrogen April 09, 2022 4:20am 11 mg/dL 08-12 [facility] [id number] [address] [facility] [address] Blood Urea Nitrogen April 20, 2022 11:19pm 14 mg/dL 08-12 [facility] [id number] [address] [facility] [address] Creatinine April 09, 2022 4:20am 0.60 mg/dL 0.50-1.70 [facility] [id number] [address] [facility] [address] Creatinine April 20, 2022 11:19pm 0.70 mg/dL 0.50-1.70 [facility] [id number] [address] [facility] [address] Estimated Creatinine Clearance April 09, 2022 4:20am 68 mL/min This value is calculated by Cockcroft Gault Equation using ideal body weight. This result is dependent on an accurate patient height and weight which is obtained from patients medical record. Iris Gallagher. and M.H. Gatravis. Prediction of creatinine clearance from serum creatinine. Nephron. 1976. 16(1):31-41. [facility] [id number] [address] [facility] [address] Estimated Creatinine Clearance April 20, 2022 11:19pm 65 mL/min This value is calculated by Cockcroft Gault Equation using ideal body weight. This result is dependent on an accurate patient height and weight which is obtained from patients medical record. Gama GallagherW. and M.HIsaías Mtz. Prediction of creatinine clearance from serum creatinine. Nephron. 1976. 16(1):31-41. [facility] [id number] [address] [facility] [address] Estimat Glomerular Filtration Rate April 09, 2022 4:20am 92 >90 Reported eGFR is based on the CKD-EPI 2020 equation that does not use a race coefficient. Additional information can be found at:[id number]_am b_egfr_summary_f [email or web address].pdf ([email or web address]) [facility] [id number] [address] [facility] [address] Estimat Glomerular Filtration Rate April 20, 2022 11:19pm 89 >90 Reported eGFR is based on the CKD-EPI 2020 equation that does not use a race coefficient. Additional information can be found at:[id number]_cw b_egfr_summary_f [email or web address].pdf ([email or web address]) [facility] [id number] [address] [facility] [address] BUN/Creatinine Ratio April 09, 2022 4:20am 18 Ratio 6-20 [facility] [id number] [address] [facility] [address] BUN/Creatinine Ratio April 20, 2022 11:19pm 20 Ratio 6-20 [facility] [id number] [address] [facility] [address] Glucose Level April 09, 2022 4:20am 83 mg/dL 68-100 [facility] [id number] [address] [facility] [address] Glucose Level April 20, 2022 11:19pm 91 mg/dL 68-100 [facility] [id number] [address] [facility] [address] Calculated Osmolality April 09, 2022 4:20am 276 mOsm/kg 270-290 [facility] [id number] [address] [facility] [address] Calculated Osmolality April 20, 2022 11:19pm 272 mOsm/kg 270-290 [facility] [id number] [address] [facility] [address] Lactic Acid Level April 05, 2022 6:54am 1.0 mmo/L 0.5-2.0 [facility] [id number] [address] [facility] [address] Calcium Level April 09, 2022 4:20am 8.4 mg/dL 8.0-10.4 [facility] [id number] [address] [facility] [address] Calcium Level April 20, 2022 11:19pm 9.3 mg/dL 8.0-10.4 [facility] [id number] [address] [facility] [address] Magnesium Level April 06, 2022 5:36am 2.0 mg/dL 1.6-2.3 [facility] [id number] [address] [facility] [address] Total Bilirubin April 09, 2022 4:20am 0.4 mg/dL 0.1-1.2 [facility] [id number] [address] [facility] [address] Total Bilirubin April 20, 2022 11:19pm 0.6 mg/dL 0.1-1.2 [facility] [id number] [address] [facility] [address] Aspartate Amino Transf (AST/SGOT) April 09, 2022 4:20am 39 IU/L 4-44 [facility] [id number] [address] [facility] [address] Aspartate Amino Transf (AST/SGOT) April 20, 2022 11:19pm 20 IU/L 4-44 [facility] [id number] [address] [facility] [address] Alanine Aminotransfera se (ALT/SGPT) April 09, 2022 4:20am 30 IU/L 5-40 [facility] [id number] [address] [facility] [address] Alanine Aminotransfera se (ALT/SGPT) April 20, 2022 11:19pm 17 IU/L 5-40 [facility] [id number] [address] [place] [address] Troponin I High Sensitivity April 01, 2022 [...] assay has not been fully characterized by [employer]. [facility] [id number] [address] [place] [address] Troponin I High Sensitivity April 21, 2022 [...] assay has not been fully characterized by [employer]. [facility] [id number] [address] [facility] [address] C-Reactive Protein April 08, 2022 5:14am 8.00 mg/L 0.00-9.00 [facility] [id number] [address] [facility] [address] C-Reactive Protein High Sensitivity April 01, 2022 8:49pm 47.050 mg/L 0.000-7.48 0 The [place] [employer] states the best evidence to date supports the use of hs-CRP as an independent predictor of increased coronary risk.The defined risk groups are as follows:Low Risk: Less than 1.0 mg/LAverage Risk: 1.0 to 3.0 mg/LHigh Risk: Above 3.0 mg/LIf the hs-CRP level is >10 mg/L, the test should be repeated, and patient examined for sources of infection or inflammation. [facility] [id number] [address] [facility] [address] Total Protein April 09, 2022 4:20am 6.0 g/dL 5.6-8.0 [facility] [id number] [address] [facility] [address] Total Protein April 20, 2022 11:19pm 6.9 g/dL 5.6-8.0 [facility] [id number] [address] [facility] [address] Albumin April 09, 2022 4:20am 3.4 g/dL 3.2-5.2 [facility] [id number] [address] [facility] [address] Albumin April 20, 2022 11:19pm 4.1 g/dL 3.2-5.2 [facility] [id number] [address] [facility] [address] Globulin April 09, 2022 4:20am 2.6 g/dL 2.0-3.9 [facility] [id number] [address] [facility] [address] Globulin April 20, 2022 11:19pm 2.8 g/dL 2.0-3.9 [facility] [id number] [address] [facility] [address] Albumin/Globul in Ratio April 09, 2022 4:20am 1.3 0.9-1.8 [facility] [id number] [address] [facility] [address] Albumin/Globul in Ratio April 20, 2022 11:19pm 1.5 0.9-1.8 [facility] [id number] [address] [facility] [address] Alkaline Phosphatase April 09, 2022 4:20am 67 U/L 34-128 [facility] [id number] [address] [facility] [address] Alkaline Phosphatase April 20, 2022 11:19pm 70 U/L 34-128 [facility] [id number] [address] [facility] [address] Thyroid Stimulating Hormone (Reflex April 04, 2022 5:44am 3.36 uIU/mL 0.340-5.60 0 *ALERT! NEW NORMAL RANGE (0.34-5.6 uIU/mL)The hTSH results should be interpreted in light of the total clinical presentation of the patient, including: symptoms, data from additional tests, and other appropriate information. This assay is not validated for testing serum hTSH levels. [facility] [id number] [address] [facility] [address] Procalcitonin April 08, 2022 5:14am < 0.05 [...] confounding clinical factors when evaluating PCT results. [facility] [id number] [address] [facility] [address] Vancomycin Level Trough April 08, 2022 5:14am 12.4 ug/mL 10.0-20.0 [facility] [id number] [address] [place] [address] Random Vancomycin Level April 09, 2022 4:20am 6.6 ug/mL [facility] [id number] [address] [place] [address] Microbiology Results Procedure Source Result Collection Date/Time Result Date/Time Result Comment Performing Site Gram Stain Ankle,Rig ht April 02, 2022 4:49pm [facility] [id number] [address] [facility] [address] Superficial Wound Culture Ankle,Rig ht Methicillin Resis Staph Aureus April 06, 2022 12:21pm [facility] [id number] [address] [place] [address] Ankle,Rig ht Strep pyogenes -group a April 06, 2022 12:21pm [facility] [id number] [address] [place] [address] Ankle,Rig ht Pseudomonas stutzeri April 06, 2022 12:21pm [facility] [id number] [address] [place] [address] Methicillin-Re sist S. Aureus (PCR) Nares April 08, 2022 5:57pm [facility] [id number] [address] [place] [address] Blood Culture Blood NO GROWTH AFTER 5 DAYS April 06, 2022 9:19pm [facility] [id number] [address] [place] [address]86 Blood Culture Blood NO GROWTH AFTER 5 DAYS April 06, 2022 9:17pm [facility] [id number] [address] [place] [address] Diagnostic Imaging Reports Report Dictated Date/Time Dictated By Status Radiology Report April 01, 2022 10:00pm Jared constantino MD completed [address] [address] Patient Name: India Tapia Medical Record#: [id number] Address: [address] [place] [address] City/State/Zip: [place] [address]: Addy Carey MD Insurance: [facility] Dual Complete FULL /Age/Sex: 1945/F Self Pay Admit/Reg Date: 04/01/[address]: Addy vela MD Location: ED./ PCP: Fanny Marx MD Date of Service: 04/01/22 Order (s): XR chest 1V portable CPT Code: 90821 Report Number: [id number] Reason for Exam: cp Indication: cp Date of exam:04/01/2022 7:33 PM REPORT SPECIALIST Comparison: [10/05/2021] Impression: Portable AP chest radiograph shows no consolidation. No large pleural effusion or pneumothorax. Minimal linear opacity in the mid to lower left lung is present on prior exam as well and likely represents scarring. Electronically signed by: Jared Max MD 04/01/2022 9:00 PM REPORT SPECIALIST Dictated By: Jared Max MD 04/01/222199 Signed By: Jared Max MD 04/01/222201 TD/TT: 04/01/222199Tech: [id number] cc: [id number]; JEISON* Fanny Marx MD; Addy Carey MD Report Dictated Date/Time Dictated By Status Radiology Report April 02, 2022 12:23am Jared Max MD completed [place] [id number] Patient Name: India Tapia Medical Record#: [id number] Address: [address] [place] [address] City/State/Zip: [place] [address]: Alfredo Blair DO Insurance: [facility] Dual Complete FULL /Age/Sex: 1945/F Self Pay Admit/Reg Date: 04/01/[address]: Addy vela MD Location: ED[facility]RL-08 PCP: Cristina Marx MD Date of Service: 04/01/22 Order (s): XR tibia fibula RT 2V CPT Code: 26035 Report Number: [id number] Reason for Exam: wound Indication: wound Date of exam:04/01/2022 10:28 PM REPORT SPECIALIST Impression: 2 views of the right tibia and fibula show No acute fracture or malalignment. No radiopaque foreign body. Electronically signed by: Jared Max MD 04/01/2022 11:23 PM REPORT SPECIALIST Dictated By: Jared Max MD 04/02/2222 Signed By: Jared Max MD 04/02/2224 TD/TT: 04/02/2222Tech: [id number] cc: [id number]; HESRO* Fanny Marx MD; Addy Carey MD Report Dictated Date/Time Dictated By Status Radiology Report April 02, 2022 2:02am Fabio Fernandez MD completed [place] [address] Patient Name: India Tapia Medical Record#: [id number] Address: [address] [place] [address] City/State/Zip: [place] [id number]: Alfredo Blair DO Insurance: [facility] Dual Complete FULL /Age/Sex: 1945/76/F Self Pay Admit/Reg Date: 04/01/[address]: Addy vela MD Location: [facility].RL-08 PCP: Cristina Marx MD Date of Service: 04/02/22 Order (s): CT head/brain wo contrast CPT Code: 99131 Report Number: [id number] Reason for Exam: ams CT HEAD WITHOUT IV CONTRAST COMPARISON: 06/05/2018 COMPLETED DATE: 04/01/2022 11:00 PM REPORT SPECIALIST CLINICAL INFORMATION: Patient Age: 76 years Patient [...] by: Fabio Fernandez MD 04/02/2022 1:02 AM REPORT SPECIALIST Dictated By: Fabio Fernandez MD 04/02/22201 Signed By: Fabio Fernandez MD 04/02/22204 TD/TT: 04/02/22201Tech: [id number] cc: [id number]; ZIONRO* Fanny Marx MD; Addy Carey MD Report Dictated Date/Time Dictated By Status Radiology Report April 02, 2022 2:14am Jared Max MD completed [address] [address] Patient Name: India Tapia Medical Record#: [id number] Address: [address] [place] [address] City/State/Zip: [place] [address]: Alfredo Blair DO Insurance: [facility] Dual Complete FULL /Age/Sex: 1945/76/F Self Pay Admit/Reg Date: 04/01/[address]: Salty Blair DO Location: [facility] [address] PCP: Cristina Marx MD Date of Service: 04/02/22 Order (s): CT elbow LT w contrast CPT Code: 74445 Report Number: [id number] Reason for Exam: Assess for septic arthritis, abscess Indication: Assess for septic arthritis, abscess Date of exam: 04/01/2022 11:00 PM REPORT SPECIALIST Exam: CT of the left elbow using [...] by: Jared Max MD 04/02/2022 1:14 AM REPORT SPECIALIST Dictated By: Jared Max MD 04/02/22213 Signed By: Jared Max MD 04/02/22216 TD/TT: 04/02/22213Tech: [id number] cc: [id number]; [id number]* Fanny Marx MD; Salty Blair DO Report Dictated Date/Time Dictated By Status Echocardiogram April 06, 2022 6:43pm Pedro Phelps MD completed [address] [address] Patient Name: India Tapia Medical Record#: [id number] Address: [address] [place] [address] City/State/Zip: [place] [address]: Alfredo Blair DO Insurance: [facility] Dual Complete FULL /Age/Sex: 1945/76/F Self Pay Admit/Reg Date: 04/01/[address]: Johnna Coates NP Location: [place] [id number] PCP: Al Winston MD Date of Service: 04/05/22 Order (s): Echo TTE cmp w/dop wo contrast CPT Code: 31310 Report Number: [id number] Reason for Exam: bradycardia with AV block Transthoracic Echocardiography Report (TTE) Demographics Patient Name Willie Keyes Gender Female MR Number [id number] Date of 1945 Age 76 year(s) Room Number RL311 Height 68 inches Date of study 04/06/2022 Weight 191.32 pounds Referring MD BSA 2.01 m^2 Interpreting MD Pedro Phelps BMI 29.09 kg/m^2 MD Fellow [employer] Gabbie Hodges [facility] Conclusions Summary EF Calculated: 70 % [...] 09, 2022 10:04am Giorgio Wyatt DO completed [place] [id number] Patient Name: India Tapia Medical Record#: [id number] Address: [address] [place] [address] City/State/Zip: [place] [address]: Alfredo Blair DO Insurance: [facility] Dual Complete FULL /Age/Sex: 1945/76/F Self Pay Admit/Reg Date: 04/01/[address]: Pedro capps MD Location: [place] [address] PCP: Al Winston MD Date of Service: 04/09/22 Order (s): XR chest 2V CPT Code: 00903 Report Number: [id number] Reason for Exam: POST-PACEMAKER EXAMINATION: XR chest [...] by: Giorgio Wyatt DO 04/09/2022 9:04 AM REPORT SPECIALIST Dictated By: Giorgio Wyatt DO 04/09/22 100 Signed By: Giorgio Wyatt MD 04/09/22 100 TD/TT: 04/09/22 100Tech: [id number] cc: ONBOYD; MADELYN* Al Winston MD; Pedro Phelps MD Report Dictated Date/Time Dictated By Status Radiology Report April 21, 2022 12:34am Jared sagastume MD [place] [address] Patient Name: India Tapia Medical Record#: [id number] Address: [address] [place] [address] City/State/Zip: [place] [address]: Irvin Krishna MD Insurance: [facility] Dual Complete FULL /Age/Sex: 1945/76/F Self Pay Admit/Reg Date: 04/20/[address]: Michael Krishna MD Location: [facility]/ PCP: Al Winston MD Date of Service: 04/20/22 Order (s): XR chest 1V portable CPT Code: 31871 Report Number: [id number] Reason for Exam: Chest pain Indication: Chest pain Date of exam:04/20/2022 10:11 PM REPORT SPECIALIST Comparison: [04/09/2022] Impression: Portable AP chest radiograph shows no consolidation. No large pleural effusion or pneumothorax. Dual lead pacer. Electronically signed by: Jared Max MD 04/20/2022 11:34 PM REPORT SPECIALIST Dictated By: Jared Max MD 04/21/22 003 Signed By: Jared Max MD 04/21/22 003 TD/TT: 04/21/22 003Tech: [id number] cc: [email or web address]; ONIMO* Michael Krishna MD; Al Winston MD Report Dictated Date/Time Dictated By Status Radiology Report April 21, 2022 12:47am Jared sagastume MD completed [address] [address] Patient Name: India Tapia Medical Record#: [id number] Address: [address] [place] [address] City/State/Zip: [place] [address]: Irvin Krishna MD Insurance: [facility] Dual Complete FULL /Age/Sex: 1945//F Self Pay Admit/Reg Date: 04/20/[address]: Michael Krishna MD Location: [facility]/ PCP: Al Winston MD Date of Service: 04/20/22 Order (s): CT angio chest with contrast CPT Code: 38195 Report Number: [id number] Reason for Exam: rule out pe Indication: rule out pe Date of exam:04/20/2022 10:18 PM REPORT SPECIALIST PE protocol CTA thorax using 85 mL [...] by: Jared Max MD 04/20/2022 11:47 PM REPORT SPECIALIST Dictated By: Jared Max MD 04/21/22 0047 [...] 5:12pm Insurance Providers Guarantor India Tapia Address [address] [place] [phone] Contact Info. Home Phone: Payer Policy Id Coverage Id Subscriber's Name Subscriber Id Effective Date Expiration Date [employer] ADV [id number] India Tapia [id number] [facility] Dual Complete FULL [id number] India Tapia [id number] [facility] Medicare [id number] India Tapia [id number] Self Pay Self N/A Encounters Encounter Location(s) Arrival/Admit Date Discharge/Depart Date Provider(s) Discharged Inpatient [facility] - Cardiac April 01, 2022 11:53pm April 09, 2022 6:37pm Salty Blair DO Discharged Recurring [facility]ound [facility] (OP) April 16, 2022 12:57pm April 20, 2022 11:59pm George Flor MD Departed Emergency [facility]-Emergency April 20, 2022 10:48pm April 21, 2022 [...] Information Provider Address Followup with dana razo caddie. Al Winston MD Work Phone : [phone] [phone] Appointment on Saturday, April 16, 2022 at 9:[address] [facility] Work Phone: [address] [place] [address] [address] [facility], [address] Al Winston MD Work Phone : [phone] [facility] [address] Pedro Bryant am, MD Work Phone: [address] [place] [phone] Future Procedures Procedure Name Ordered Date Scheduled [...]
--- OUTSIDE RECORDS SUMMARY | 2023-07-28 10:35 | XMS_ITS | Continuity of Care Document ---
Author Name Unknown Address [address] [place] [address] Phone [facility] Address [address] [place] [address] Phone Care Team Providers Care Ice Maker Name Role Phone MD Addy Carey Emergency Provider DO Salty Blair Attending Provider MD Gail Ricketts Other Provider MD Al Winston Primary Care Provider MD Pedro Phelps Other Provider [phone] Chief Complaint and Reason for Visit Chief [...] Lovastatin Discontin ued 40 MG PO DAILY [facility] 2017 11:00pm Februa ry 2022 8:49am Paroxetine Hcl Discontin ued 50 MG PO DAILY [facility] 2017 11:00pm Februa ry 2022 4:14pm Aripiprazole Discontin ued 5 MG PO ONCE [facility] 2017 11:00pm Februa ry 2022 8:49am [...] Event Date Not Given Reason Dose Number Extraction Supervisor Lot Number Vaccine Information Statement (VIS) Detail Tetanus, Diphtheria, Pertussis (Tdap) April 02, 2022 [id number] Procedures Procedure Date Performed Status EKG ED [...] April 09, 2022 4:20am 8.70 K/uL 4.30-10.00 [facility] [id number] [address] [facility] [address] Red Blood Count April 09, 2022 4:20am 4.09 M/uL 3.80-5.00 [facility] [id number] [facility] [address] Hemoglobin April 09, 2022 4:20am 11.3 gm/dL 12.0-15.0 [facility] [id number] [facility] [address] Hematocrit April 09, 2022 4:20am 36.2 % 35.0-45.0 [facility] [id number] [facility] [address] Mean Corpuscular Volume April 09, 2022 4:20am 88.5 fL 85.0-100.0 [facility] [id number] [facility] [address] Mean Corpuscular Hemoglobin April 09, 2022 4:20am 27.6 pg 27.0-33.0 [facility] [id number] [address] [facility] [address] Mean Corpuscular Hemoglobin Concent April 09, 2022 4:20am 31.2 gm/dL 32.0-36.0 [facility] [id number] [address] [facility] [address] Red Cell Distribution Width April 09, 2022 4:20am 13.0 % 11.5-14.5 [facility] [id number] [address] [facility] [address] Platelet Count April 09, 2022 4:20am 238 K/uL 150-400 [facility] [id number] [address] [facility] [address] Absolute Neutrophil April 09, 2022 4:20am 5.4 K/uL 2.0-7.0 [facility] [id number] [address] [facility] [address] Immature Granulocyte % (Auto) April 09, 2022 4:20am 0.6 % 0-1 [facility] [id number] [address] [facility] [address] Neutrophils (%) (Auto) April 09, 2022 4:20am 62.9 % 45.0-75.0 [facility] [id number] [address] [facility] [address] Lymphocytes (%) (Auto) April 09, 2022 4:20am 21.3 % 20.0-40.0 [facility] [id number] [address] [facility] [address] Monocytes (%) (Auto) April 09, 2022 4:20am 11.4 % 1.0-13.1 [facility] [id number] [address] [facility] [address] Eosinophils (%) (Auto) April 09, 2022 4:20am 3.0 % 0-5 [facility] [id number] [address] [facility] [address] Basophils (%) (Auto) April 09, 2022 4:20am 0.8 % 0.0-1.0 [facility] [id number] [address] [facility] [address] Nucleated Red Blood Cells April 09, 2022 4:20am 0.0 /100 WBC 0.0-1.0 [facility] [id number] [address] [facility] [address] Erythrocyte Sedimentation Rate April 08, 2022 5:14am 27 mm 0-15 [facility] [id number] [address] [facility] [address] Hemoglobin A1c April 01, 2022 8:49pm 5.5 % 4.0-6.0 Interpretation Guidelines: Non-Diabetic: 4.0-6.0 % Good Diabetic Control: 6.0-8.0 % Diabetic Action Suggested: >8.0 % [facility] [id number] [address] [facility] [address] Prothrombin Time April 01, 2022 8:49pm 10.7 seconds 9.3-12.1 [facility] [id number] [address] [place] [address] Prothromb Time International Ratio April 01, 2022 8:49pm 1.0 0.9-1.2 Reference Interval is for non-anticoagulat ed patients.Suggest ed INR Therapeutic Range for Vitamin K antogonist therapy:LEVELS OF THERAPY INDICATIONS TARGET INR RANGEStandard Dose Venous Thrombosis, 2.0 - 3.0 Atrial Fibrillation, Pulmonary Embolism. High Dose Valvular Heart Disease, 2.5 - 3.5 Mechanical Heart, Intracardiac Thrombosis. [facility] [id number] [facility] [address] Activated Partial Thromboplast Time April 01, 2022 8:49pm 25.8 seconds 23.9-32.8 [facility] [id number] [address] [place] [address] Anti-Xa Level April 01, 2022 8:49pm < 0.10 IU/mL 0.30-0.70 [facility] [id number] [address] [facility] [address] Urine Color April 01, 2022 10:52pm Yellow Yellow [facility] [id number] [address] [facility] [address] Urine Clarity April 01, 2022 10:52pm Clear Clear [facility] [id number] [address] [facility] [address] Urine pH April 01, 2022 10:52pm 7.5 5.0-8.0 [facility] [id number] [address] [facility] [address] Urine Specific [place] April 01, 2022 10:52pm <= 1.005 1.005-1.03 0 [facility] [id number] [address] [facility] [address] Urine Blood April 01, 2022 10:52pm Negative mg/dL Negative [facility] [id number] [address] [facility] [address] Urine Protein April 01, 2022 10:52pm Negative mg/dl Negative [facility] [id number] [address] [facility] [address] Urine Glucose (UA) April 01, 2022 10:52pm Negative mg/dL Negative [facility] [id number] [address] [facility] [address] Urine Ketones April 01, 2022 10:52pm Negative mg/dL Negative [facility] [id number] [address] [facility] [address] Urine Nitrate April 01, 2022 10:52pm Negative Negative [facility] [id number] [address] [facility] [address] Urine Bilirubin April 01, 2022 10:52pm Negative mg/dL Negative [facility] [id number] [address] [facility] [address] Urine Urobilinogen April 01, 2022 10:52pm 1.0 E.U./dL 0.2 [facility] [id number] [address] [facility] [address] Urine Leukocyte Esterase April 01, 2022 10:52pm Trace mg/dL Negative [facility] [id number] [address] [facility] [address] Sodium Level April 09, 2022 4:20am 139 mEq/l 132-146 [facility] [id number] [facility] [address] Potassium Level April 09, 2022 4:20am 3.9 mEq/L 3.4-5.2 [facility] [id number] [address] [facility] [address] Chloride Level April 09, 2022 4:20am 106 mEq/L 93-109 [facility] [id number] [address] [facility] [address] Carbon Dioxide Level April 09, 2022 4:20am 25.0 mEq/L 20.0-32.0 [facility] [id number] [address] [facility] [address] Anion Gap April 09, 2022 4:20am 8 5-20 [facility] [id number] [address] [facility] [address] Blood Urea Nitrogen April 09, 2022 4:20am 11 mg/dL 6- [facility] [id number] [address] [facility] [address] Creatinine April 09, 2022 4:20am 0.60 mg/dL 0.50-1.70 [facility] [id number] [address] [facility] [address] Estimated Creatinine Clearance April 09, 2022 4:20am 68 mL/min This value is calculated by Cockcroft Gault Equation using ideal body weight. This result is dependent on an accurate patient height and weight which is obtained from patients medical record. PratibhaofKarlene gamino.W. and M.H. Gault. Prediction of creatinine clearance from serum creatinine. Nephron. 1976. 16(1):31-41. [facility] [id number] [address] [facility] [address] Estimat Glomerular Filtration Rate April 09, 2022 4:20am 92 >90 Reported eGFR is based on the CKD-EPI 2020 equation that does not use a race coefficient. Additional information can be found at:[id number] [email or web address] [email or web address].pdf ([email or web address].[email or web address]) [facility] [id number] [address] [facility] [address] BUN/Creatinine Ratio April 09, 2022 4:20am 18 Ratio - [facility] [id number] [address] [facility] [address] Glucose Level April 09, 2022 4:20am 83 mg/dL 68-100 [facility] [id number] [address] [facility] [address] Calculated Osmolality April 09, 2022 4:20am 276 mOsm/kg 270-290 [facility] [id number] [address] [facility] [address] Lactic Acid Level February 13th, 2023 6:54am 1.0 mmo/L 0.5-2.0 [facility] [id number] [address] [facility] [address] Calcium Level April 09, 2022 4:20am 8.4 mg/dL 8.0-10.4 [facility] [id number] [address] [facility] [address] Magnesium Level April 06, 2022 5:36am 2.0 mg/dL 1.6-2.3 [facility] [id number] [address] [facility] [address] Total Bilirubin April 09, 2022 4:20am 0.4 mg/dL 0.1-1.2 [facility] [id number] [address] [facility] [address] Aspartate Amino Transf (AST/SGOT) April 09, 2022 4:20am 39 IU/L 4-44 [facility] [id number] [address] [facility] [address] Alanine Aminotransfera se (ALT/SGPT) April 09, 2022 4:20am 30 IU/L 5-40 [facility] [id number] [address] [facility] [address] Troponin I High Sensitivity April 01, 2022 [...] assay has not been fully characterized by [employer]. [facility] [id number] [address] [place] [address] C-Reactive Protein April 08, 2022 5:14am 8.00 mg/L 0.00-9.00 [facility] [id number] [address] [place] [address] C-Reactive Protein High Sensitivity April 01, 2022 8:49pm 47.050 mg/L 0.000-7.48 0 The [place] [employer] states the best evidence to date supports the use of hs-CRP as an independent predictor of increased coronary risk.The defined risk groups are as follows:Low Risk: Less than 1.0 mg/LAverage Risk: 1.0 to 3.0 mg/LHigh Risk: Above 3.0 mg/LIf the hs-CRP level is >10 mg/L, the test should be repeated, and patient examined for sources of infection or inflammation. [facility] [id number] [address] [place] [address] Total Protein April 09, 2022 4:20am 6.0 g/dL 5.6-8.0 [facility] [id number] [address] [place] [address] Albumin April 09, 2022 4:20am 3.4 g/dL 3.2-5.2 [facility] [id number] [address] [place] [address] Globulin April 09, 2022 4:20am 2.6 g/dL 2.0-3.9 [facility] [id number] [address] [place] [address] Albumin/Globul in Ratio April 09, 2022 4:20am 1.3 0.9-1.8 [facility] [id number] [address] [place] [address] Alkaline Phosphatase April 09, 2022 4:20am 67 U/L 34-128 [facility] [id number] [address] [place] [address] Thyroid Stimulating Hormone (Reflex April 04, 2022 5:44am 3.36 uIU/mL 0.340-5.60 0 *ALERT! NEW NORMAL RANGE (0.34-5.6 uIU/mL)The hTSH results should be interpreted in light of the total clinical presentation of the patient, including: symptoms, data from additional tests, and other appropriate information. This assay is not validated for testing serum hTSH levels. [facility] [id number] [address] [place] [address] Procalcitonin April 08, 2022 5:14am < 0.05 [...] confounding clinical factors when evaluating PCT results. [facility] [id number] [address] [place] [address] Vancomycin Level Trough April 08, 2022 5:14am 12.4 ug/mL 10.0-20.0 [facility] [id number] [address] [place] [address] Random Vancomycin Level April 09, 2022 4:20am 6.6 ug/mL [facility] [id number] [address] [place] [address] Microbiology Results Procedure Source Result Collection Date/Time Result Date/Time Result Comment Performing Site Gram Stain Ankle,Rig ht April 02, 2022 4:49pm [facility] [id number] [address] [facility] [address] Superficial Wound Culture Ankle,Rig ht Methicillin Resis Staph Aureus April 06, 2022 12:21pm [facility] [id number] [address] [facility] [address] Ankle,Rig ht Strep pyogenes -group a April 06, 2022 12:21pm [facility] [id number] [address] [facility] [address] Ankle,Rig ht Pseudomonas stutzeri April 06, 2022 12:21pm [facility] [id number] [address] [facility] [address] Methicillin-Re sist S. Aureus (PCR) Nares April 08, 2022 5:57pm [facility] [id number] [address] [facility] [address] Blood Culture Blood NO GROWTH AFTER 5 DAYS April 06, 2022 9:19pm [facility] [id number] [address] [facility] [address] Blood Culture Blood NO GROWTH AFTER 5 DAYS April 06, 2022 9:17pm [facility] [id number] [address] [facility] [address] Diagnostic Imaging Reports Report Dictated Date/Time Dictated By Status Radiology Report April 01, 2022 10:00pm Jared constantino MD completed [place] [id number] Patient Name: India Tapia Medical Record#: [id number] Address: [address] [place] [address] City/State/Zip: [address]: Addy Carey MD Insurance: [facility] Dual Complete FULL /Age/Sex: 1945/76/F Self Pay Admit/Reg Date: 04/01/[address]: Addy vela MD Location: ED.[facility]/ PCP: Fanny Marx MD Date of Service: 04/01/22 Order (s): XR chest 1V portable CPT Code: 16179 Report Number: [id number] Reason for Exam: cp Indication: cp Date of exam:04/01/2022 7:33 PM [employer]PER[employer] Comparison: [10/05/2021] Impression: Portable AP chest radiograph shows no consolidation. No large pleural effusion or pneumothorax. Minimal linear opacity in the mid to lower left lung is present on prior exam as well and likely represents scarring. Electronically signed by: Jared Max MD 04/01/2022 9:00 PM [employer] Dictated By: Jared Max MD 04/01/222199 Signed By: Jared Max MD 04/01/222201 TD/TT: 04/01/222199Tech: [id number] cc: [id number]; ZIONRO* Fanny Marx MD; Addy Carey MD Report Dictated Date/Time Dictated By Status Radiology Report April 02, 2022 12:23am Jared Max MD completed [place] [id number] Patient Name: India Tapia Medical Record#: [id number] Address: [address] [place] [address] City/State/Zip: [place] [address]: Alfredo Blair DO Insurance: [facility] Dual Complete FULL /Age/Sex: 1945/76/F Self Pay Admit/Reg Date: 04/01/[address]: Addy vela MD Location: ED.[place] [address] PCP: Cristina Marx MD Date of Service: 04/01/22 Order (s): XR tibia fibula RT 2V CPT Code: 24967 Report Number: [id number] Reason for Exam: wound Indication: wound Date of exam:04/01/2022 10:28 PM [employer] Impression: 2 views of the right tibia and fibula show No acute fracture or malalignment. No radiopaque foreign body. Electronically signed by: Jared Max MD 04/01/2022 11:23 PM [employer] Dictated By: Jared Max MD 04/02/2222 Signed By: Jared Max MD 04/02/2224 TD/TT: 04/02/2222Tech: [id number] cc: [id number]; JEISON* Fanny Marx MD; Addy Carey MD Report Dictated Date/Time Dictated By Status Radiology Report April 02, 2022 2:02mir Fernandez MD completed [facility] [address] [place] [address] Patient Name: India Tapia Medical Record#: [id number] Address: [address] [place], [place] [address] City/State/Zip: [place] [address]: Alfredo Blair DO Insurance: [facility] Dual Complete FULL /Age/Sex: 1945/76/F Self Pay Admit/Reg Date: 04/01/[address]: Addy vela MD Location: ED[facility] PCP: Cristina Marx MD Date of Service: 04/02/22 Order (s): CT head/brain wo contrast CPT Code: 56174 Report Number: [id number] Reason for Exam: ams CT HEAD WITHOUT IV CONTRAST COMPARISON: 06/05/2018 COMPLETED DATE: 04/01/2022 11:00 PM [employer] CLINICAL INFORMATION: Patient Age: 76 years Patient [...] by: Fabio Fernandez MD 04/02/2022 1:02 AM [employer] Dictated By: Fabio Fernandez MD 04/02/22201 Signed By: Fabio Fernandez MD 04/02/22204 TD/TT: 04/02/22201Tech: [id number] cc: [email or web address]; HESRO* Fanny Marx MD; Addy Carey MD Report Dictated Date/Time Dictated By Status Radiology Report April 02, 2022 2:14am Jared Max MD completed [place] [address] Patient Name: India Tapia Medical Record#: [id number] Address: [address] [place] [address] City/State/Zip: [place] [address]: Alfredo Blair DO Insurance: [facility] Dual Complete FULL /Age/Sex: 1945/76/F Self Pay Admit/Reg Date: 04/01/[address]: Salty Blair DO Location: ED.[place] [address] PCP: Cristina Marx MD Date of Service: 04/02/22 Order (s): CT elbow LT w contrast CPT Code: 93837 Report Number: [id number] Reason for Exam: Assess for septic arthritis, abscess Indication: Assess for septic arthritis, abscess Date of exam: 04/01/2022 11:00 PM [employer] Exam: CT of the left elbow using [...] by: Jared Max MD 04/02/2022 1:14 AM [facility] Dictated By: Jared Max MD 04/02/22213 Signed By: Jared Max MD 04/02/22216 TD/TT: 04/02/22213Tech: [id number] cc: [id number]; DINRO01* Fanny Marx MD; Salty Blair DO Report Dictated Date/Time Dictated By Status Echocardiogram April 06, 2022 6:43pm Pedro Phelps MD completed [place] [address] Patient Name: India Tapia Medical Record#: [id number] Address: [address] [place] [address] City/State/Zip: [place] [address]: Alfredo Balir DO Insurance: [facility] Dual Complete FULL /Age/Sex: 1945/76/F Self Pay Admit/Reg Date: 04/01/[address]: Johnna Coates NP Location: [address] [place] [address] PCP: Al Winston MD Date of Service: 04/05/22 Order (s): Echo TTE cmp w/dop wo contrast CPT Code: 46983 Report Number: [id number] Reason for Exam: bradycardia with AV block Transthoracic Echocardiography Report (TTE) Demographics Patient Name Willie Keyes Gender Female MR Number [id number] Date of 1945 Age 76 year(s) Room Number RL311 Height 68 inches Date of study 04/06/2022 Weight 191.32 pounds Referring MD BSA 2.01 m^2 Interpreting MD Pedro Phelps BMI 29.09 kg/m^2 MD Fellow Furnace Checker Gabbie Hodges [facility] Conclusions Summary EF Calculated: 70 % [...] Velocity: 99.1 cm/s Peak Gradient: 3.[address] ED Velocity: 84.2 cm/s LVOT Peak Velocity: [...] 09, 2022 10:04am Giorgio Wyatt DO completed [address] [address] Patient Name: India Tapia Medical Record#: [id number] Address: [address] [place] [address] City/State/Zip: [place] [address]: Alfredo Blair DO Insurance: [facility] Dual Complete FULL /Age/Sex: 1945/76/F Self Pay Admit/Reg Date: 04/01/[address]: Pedro capps MD [facility] PCP: Al Winston MD Date of Service: 04/09/22 Order (s): XR chest 2V CPT Code: 13731 Report Number: [id number] Reason for Exam: POST-PACEMAKER EXAMINATION: XR chest [...] by: Giorgio Wyatt DO 04/09/2022 9:04 AM [facility] Dictated By: Giorgio Wyatt DO [...] 5:12pm Insurance Providers Guarantor India Tapia Address [address] [place] [phone] Contact Info. Home Phone: Payer Policy Id Coverage Id Subscriber's Name Subscriber Id Effective Date Expiration Date [employer] Medicare ADV [id number] India Tapia [id number] [facility] Dual Complete FULL [id number] India Tapia [id number] [facility] Medicare [id number] India Tapia [id number] Self Pay Self N/A Encounters Encounter Location(s) Arrival/Admit Date Discharge/Depart Date Provider(s) Discharged Inpatient [facility] - Cardiac April 01, 2022 11:53pm April [...] Saturday, April 16, 2022 at 9:00 AM [facility] Work Phone: [address] [place] [address] [address] [facility], [address] Al Winston MD Work Phone : [address] [place] [address] Pedro Bryant am, MD Work Phone: [address] [place] [address] Future Procedures Procedure Name Ordered Date Scheduled [...]
--- NOTE | 2023-07-28 10:52 | ED_ITS ---
Discharge Plan Disposition Patient Disposition: Home, Self-Care Condition: Good Prescriptions Prescriptions: New benzonatate 100 mg capsule 100 mg PO TIDP PRN (Reason: Cough) Qty: 30 0RF methylprednisolone 4 mg Tablets,Dose Pack 4 mg PO DIRECTED 6 Days Qty: 21 0RF Rx Instructions: Take 1 pack as directed for 6 days cefdinir 300 mg capsule 300 mg PO BID Qty: 20 0RF No Action cyclobenzaprine 10 mg tablet 10 mg PO DAILY Patient Comments: TAKE 1 TABLET BY MOUTH NIGHTLY meloxicam 15 mg tablet 15 mg PO DAILY Patient Comments: TAKE 1 TABLET BY MOUTH ONCE DAILY levothyroxine 25 mcg tablet 25 mcg PO DAILY Patient Comments: TAKE 1 TABLET BY MOUTH ONCE DAILY propranolol 80 mg capsule,extended release 24 hr 80 mg PO DAILY Patient Comments: TAKE 1 CAPSULE BY MOUTH ONCE DAILY gabapentin 300 mg capsule 300 mg PO DAILY Patient Comments: TAKE 1 CAPSULE BY MOUTH THREE TIMES DAILY omeprazole 20 mg capsule,delayed release(DR/EC) 20 mg PO DAILY Patient Comments: TAKE 1 CAPSULE BY MOUTH ONCE DAILY IN THE MORNING BEFORE BREAKFAST lisinopril 5 mg tablet 5 mg PO DAILY Patient Comments: TAKE 1 TABLET BY MOUTH ONCE DAILY albuterol sulfate [Ventolin HFA] 90 mcg/actuation HFA aerosol inhaler 2 puff INHALATION Q4HP PRN (Reason: Wheezing) Patient Comments: INHALE 2 PUFFS BY MOUTH EVERY 4 HOURS NEEDED FOR WHEEZING escitalopram oxalate 10 mg tablet 10 mg PO DAILY Patient Comments: TAKE 1 TABLET BY MOUTH ONCE DAILY aripiprazole 5 mg tablet 5 mg PO DAILY Patient Comments: TAKE 1 TABLET BY MOUTH ONCE DAILY rosuvastatin 10 mg tablet 10 mg PO DAILY Patient Comments: TAKE 1 TABLET BY MOUTH ONCE DAILY budesonide-formoterol [Symbicort] 160-4.5 mcg/actuation HFA aerosol inhaler 1 puff INHALATION DAILY Referrals Follow up/Referrals: Provider,Referral, MD [Primary Care Provider] - See instructions Activity Restrictions/Add. Instructions Additional Instructions/Restrictions: Drink plenty of fluids. Take tylenol or ibuprofen for pain or fever. Take the medications as directed. Follow up with your regular doctor. GO TO THE ER FOR ANY WORSENING SYMPTOMS Clinical Impressions Clinical Impression: Acute bronchitis, Sinusitis Instructions Patient Instructions: DI for Sinusitis, Sinusitis Discharge ED Provider: Lavon Guillory [facility] General Stated complaint: congestion, cough Mode of Arrival: Ambulatory Source of Information: Patient Limitations: No Limitations Time Seen by Provider: 07/28/23 10:52 Description of Symptoms (Recalled from Triage Doc. by RN): PATIENT C/O COUGH THAT STARTED LAST TUESDAY HEENT Symptoms (Recalled from RN notes): No Resp Symptoms (Recalled from RN notes): Yes Skin Symptoms (Recalled from RN notes): No MS Symptoms (Recalled from RN notes): No Functional Status (Recalled from RN notes): WNL History of Present Illness Provider Complaint: She states that for the past 1 week she has had sinus congestion and chest congestion. She denies fever and shortness of breath. Related Data Home Medications Medication Instructions Recorded Confirmed albuterol sulfate 90 mcg/actuation 2 puff inhalation Q4HP PRN Wheezing 07/28/23 07/28/23 aerosol inhaler (Ventolin HFA) aripiprazole 5 mg tablet 5 mg PO DAILY 07/28/23 07/28/23 budesonide-formoterol HFA 160 1 puff inhalation DAILY 07/28/23 07/28/23 mcg-4.5 mcg/actuation aerosol inhaler (Symbicort) cyclobenzaprine 10 mg tablet 10 mg PO DAILY 07/28/23 07/28/23 escitalopram oxalate 10 mg tablet 10 mg PO DAILY 07/28/23 07/28/23 gabapentin 300 mg capsule 300 mg PO DAILY 07/28/23 07/28/23 levothyroxine 25 mcg tablet 25 mcg PO DAILY 07/28/23 07/28/23 lisinopril 5 mg tablet 5 mg PO DAILY 07/28/23 07/28/23 meloxicam 15 mg tablet 15 mg PO DAILY 07/28/23 07/28/23 omeprazole 20 mg capsule,delayed 20 mg PO DAILY 07/28/23 07/28/23 release propranolol 80 mg capsule,24 80 mg PO DAILY 07/28/23 07/28/23 hr,extended release rosuvastatin 10 mg tablet 10 mg PO DAILY 07/28/23 07/28/23 Previous Rx's Medication Instructions Recorded benzonatate 100 mg capsule 100 mg PO TIDP PRN Cough #30 caps 07/28/23 cefdinir 300 mg capsule 300 mg PO BID #20 caps 07/28/23 methylprednisolone 4 mg tablets in 4 mg PO DIRECTED 6 days #21 tabs 07/28/23 a dose pack Allergies Allergy/AdvReac Type Severity Reaction Status Date / Time Sulfa (Sulfonamide Allergy Verified 01/22/21 16:18 Antibiotics) Worker's Comp Is this a Worker's Comp case?: No [facility] Disclaimer: The information contained in this section may have been updated after the patient was seen, as this information can be updated by other users. Medical History (Updated 07/28/23 @ 11:41 by Lavon Guillory APRN) GERD (gastroesophageal reflux disease) Thyroid disease COPD (chronic obstructive pulmonary disease) Hyperlipidemia Hypertension Social History Smoking Status: Former smoker alcohol intake: never current occupational status: retired Travel in the last 8 weeks: None ROS Obtained: Yes All systems reviewed & no additional complaints except as documented Constitutional Constitutional: Reports poor appetite Eyes Eyes: Reports system reviewed and no additional complaints, except as documented ENT Ears, Nose, Mouth, and Throat: Reports as per HPI Cardiovascular Cardiovascular: Reports system reviewed and no additional complaints, except as documented and Denies chest pain Respiratory Respiratory: Denies shortness of breath, Reports chest congestion, Reports cough, Denies stridor and Denies wheezing Gastrointestinal Gastrointestingal: Reports system reviewed and no additional complaints, except as documented; Denies abdominal pain, diarrhea or vomiting Musculoskeletal Musculoskeletal: Reports system reviewed and no additional complaints, except as documented and Denies arthralgias Integumentary/Breasts Skin/Breast: Reports system reviewed and no additional complaints, except as documented and Denies rash Neurologic Neurologic: Denies paresthesias Allergic/Immunologic Allergic/Immunologic: Denies wheezing Physical Exam General General appearance: alert and in no apparent distress Eye Eye exam: Present normal appearance, PERRL and EOMI ENT ENT exam: Present mucous membranes moist and normal external ear exam Expanded ENT Exam External ear exam: Present normal external inspection TM/Canal exam: Bilateral TM: erythema and bulging Nose exam: Absent sinus tenderness Nasal speculum exam: Bilateral: normal Mouth exam: Present normal external inspection; Absent drooling Teeth exam: Present normal inspection Throat exam: Present tonsillar erythema and tonsillomegaly Neck Neck exam: Present normal inspection, full ROM and trachea midline; Absent tenderness, lymphadenopathy or thyromegaly Chest Chest inspection: Present normal inspection and symmetric chest wall rise; Absent tenderness or rash Respiratory Respiratory exam: Present normal lung sounds bilaterally; Absent respiratory distress, wheezes, stridor or accessory muscle use Cardiovascular Cardiovascular exam: Present regular rate, normal rhythm and normal heart sounds Abdominal Exam Abdominal exam: Present soft; Absent distention, tenderness, guarding, rebound or rigidity Extremities Exam Extremities exam: Present normal inspection, full ROM and normal capillary refill; Absent tenderness or calf tenderness Back Exam Back exam: Present normal inspection and full ROM; Absent tenderness Neurological Exam Neurological exam: Present alert and oriented X3 Psychiatric Psychiatric exam: Present normal affect and normal mood Skin Skin exam: Present warm, dry, intact and normal color Lymphatic Lymphatic Findings: no adenopathy Medical Decision Making Medical Records Medical records reviewed: No I reviewed the patient's medical records. [facility] Inquiry Pt receiving controlled substance: No Vital Signs: 07/28/23 10:35 Temperature 98.3 F Temperature Source Oral Pulse Rate [Left Brachial] 91 H Respiratory Rate 20 Blood Pressure [Left Arm] 161/82 H Blood Pressure Mean [Left Arm] 108 Blood Pressure Source [Left Arm] Automatic Cuff Blood Pressure Position [Left Arm] Sitting 02 Sat by Pulse Oximetry 96 Oxygen Delivery Method Room Air
[2023-07-28 11:44] VITALS: BP 161/82; PULSE 91; RESP 20; TEMP 36.8; O2SAT 96
== END 2023-07-28 11:47 | disposition home or self-care (01) ==
PROVIDERS: Emergency Provider Nurse Practitioner Family
DX: J20.9 Acute bronchitis, unspecified; J01.90 Acute sinusitis, unspecified; R05.9 Cough, unspecified; R09.81 Nasal congestion; Z87.891 Personal history of nicotine dependence
CPT/HCPCS: 99212; 99214; G0463